=== PATIENT | female | born 1980 | race Caucasian/White ===

== ENCOUNTER 2019-10-31 01:11 | Emergency (ER) | payer OTHER, MEDICAID, SELFPAY ==
[2019-10-31 01:40] VITALS: BP 116/78; PULSE 79; RESP 16; TEMP 36.8; O2SAT 98; BMI 30.2
--- NOTE | 2019-10-31 01:40 | DI.US.S_ITS ---
PROCEDURE: US PELVIC COMPLETE INDICATIONS: PAIN; CHECK IUD PLACEMENT TECHNIQUE: Real-time scanning was performed of the pelvic organs, with image documentation. Additional endovaginal scanning was necessary due to incomplete visualization of the adnexal and endometrial structures by transabdominal scanning. COMPARISON: None. FINDINGS: Transabdominal scanning: Limited scanning through the kidneys shows no hydronephrosis. No pathologic free abdominal or pelvic fluid. Endovaginal scanning: Uterus: Uterus is normal in size at the 7.3 x 4.5 x 5.5 cm. The endometrium measures 7 mm in combined thickness. An intrauterine device is identified within the endometrial cavity. Ovaries: The right ovary measures 4.4 x 3.0 x 3.9 cm. There is a simple right ovarian cyst measuring 4.1 x 2.6 x 3.5 cm. Normal vascular waveforms are present within the right ovary. Left ovary measures 2.9 x 1.7 x 1.2 cm. There is a mildly complicated left ovarian cyst measuring 1.3 x 1.4 x 0.7 cm. There is mild internal echoes within this cyst. Normal vascular waveforms are noted in the left ovary. IMPRESSION: 1. Pelvic ultrasound without acute sonographic abnormalities. 2. An intrauterine device is noted within the endometrial cavity. 3. A 4.1 cm simple right ovarian cyst. 4. A mildly complicated 1.4 cm left ovarian cyst which may represent a functional cyst or hemorrhagic cyst. Consider followup pelvic ultrasound in 6-12 weeks to document stability versus resolution. No significant discrepancy with the third shift lieutenant radiology preliminary report. Dictated by: Felipe Cobos M.D. on 10/31/2019 at 8:41 Approved by: Felipe Cobos M.D. on 10/31/2019 at 8:47
--- NOTE | 2019-10-31 04:47 | ED.FEMALEGU ---
HPI - Female Genitourinary <LAITH Marinelli - Last Filed: 10/31/19 06:03> General Chief complaint: Urogenital-Female Stated complaint: thinks uterine device has moved - pain Time Seen by Provider: 10/31/19 01:15 Source: patient Mode of arrival: Ambulatory Limitations: no limitations History of Present Illness HPI Narrative: This is a 39-year-old female, nonsmoker, who presents to ED with 2 week duration of bilateral low abdomen and back pain with occasional nausea. Patient denies unusual vaginal discharge, lesions, or vaginal bleeding. She currently has on copper IUD in placed and her menstruation has been irregular. LMP was 09/25/19. Patient denies any concerns for STIs. Patient denies fever, chills, vomiting, urinary symptoms. Related Data Previous Rx's Medication Instructions Recorded doxycycline monohydrate 100 mg PO BID 7 Days #14 cap 10/31/19 ondansetron 4 mg PO BID-TID PRN #7 tab 10/31/19 Allergies Allergy/AdvReac Type Severity Reaction Status Date / Time No Known Drug Allergies Allergy Verified 10/31/19 02:23 Review of Systems <LAITH Marinelli - Last Filed: 10/31/19 06:03> Review of Systems Narrative: General: Denies fever, chills, fatigue, malaise, sweats. HEENT: Denies sinus pain, ear pain, sore throat, difficulty swallowing, dizziness. Respiratory: Denies dyspnea, cough, wheezing, hemoptysis, sputum. Cardiovascular: Denies chest pain, palpitations, orthopnea, edema. Gastrointestinal: Reports bilateral low abdominal pain and nausea. Denies vomiting, diarrhea, constipation, melena. : Denies dysuria, frequency, incontinence, hematuria, urinary retention. Musculoskeletal: Denies weakness, joint pain or bony pain. Skin: Denies rash, skin lesions, or other. Neurologic: Denies weakness, headache, numbness, change in speech, confusion, seizures, incoordination. Psychiatric: No concerning psychosocial issues. 12-point review of systems is negative except for those stated above. Patient History <LAITH Marinelli - Last Filed: 10/31/19 06:03> Medical History Epilepsy (Acute) Scoliosis (Acute) Smoking Status: Current some day smoker alcohol intake frequency: 0-2 drinks per day Substance Use Type: does not use Exam <Jerrell LAITH Sandoval - Last Filed: 10/31/19 06:03> Narrative Exam Narrative: GEN: Alert, oriented x 3, well appearing and nourished, and in no acute distress. Head: Normal cephalic, atraumatic. No scalp or temporal tenderness, palpable mass or rash. EYES: Pupils are equal, round, and reactive to light and accommodation. Extraocular muscles are intact bilaterally. There is no subconjunctival hemorrhage, exudate and sclera non-icteric. ENT: Bilateral auditory canals and tympanic membranes clear. Hearing grossly intact. Nose without bleeding, purulent discharge or deviation. Facial sinuses nontender to palpate. Mucous membrane moist, no mucosal lesion. Throat without erythema, tonsillar hypertrophy or exudate. Uvula in midline, airway patent. Neck: Trachea in midline. No JVD, non-tender without lymphadenopathy. No masses or thyroid megaly. Supple, non-tender and no meningeal signs. CARDIAC: Normal regular rate and rhythm without murmurs, gallops, or rubs. No chest wall tenderness. No peripheral edema, cyanosis or pallor. Capillary refill is less than 2 seconds. RESPIRATORY: Lungs are clear to auscultate bilaterally. No cough, wheezes, rales, or rhonchi. No stridor, respiratory distress, increase work of breathing, or accessary muscle used. ABD: Abdomen soft, nontender and non-distended. No guarding or rebound tenderness to palpate. Bowel sounds are normal in all 4 quadrants. There is no palpable masses or organomegaly. EXT: Full painless ROM of all extremities with no loss of sensation, strength, effusion or edema. SKIN: Warm, dry, normal color for patient. No erythema, lesions or rash over visible areas. BACK: Nontender without deformity or crepitance. No flank tenderness. NEUROLOGICAL: Alert and oriented to place, time and person. Sensation and motor function intact bilaterally. No facial droops, dysphasia. PSYCHIATRIC: Good judgement and reason, without hallucinations, abnormal affect or abnormal behaviors during the examination. Initial Vital Signs Initial Vital Signs: Vital Signs Temperature 98.2 F 10/31/19 01:40 Pulse Rate 79 10/31/19 01:40 Respiratory Rate 16 10/31/19 01:40 Blood Pressure 116/78 10/31/19 01:40 Pulse Oximetry 98 10/31/19 01:40 General: No CVA tenderness External Female Exam: external appearance normal Speculum Exam - Vagina: normal appearance of the vagina and no masses Speculum Exam - Cervix: cervical tenderness and other (IUD string visible, erythematous cervix) Bimanual Exam- Vagina & Uterus: uterine size normal and cervical tenderness Bimanual Exam- Adnexa, other: adnexae non-tender Other: The patient gave permission for pelvic exam and declined standby assistance during the exam. <Adrian Mireles DO - Last Filed: 11/03/19 18:52> Initial Vital Signs Initial Vital Signs: Vital Signs Temperature 98.2 F 10/31/19 01:40 Pulse Rate 79 10/31/19 01:40 Respiratory Rate 16 10/31/19 01:40 Blood Pressure 116/78 10/31/19 01:40 Pulse Oximetry 98 10/31/19 01:40 Course <LAITH Marinelli - Last Filed: 10/31/19 06:03> Orders Ordered: Discontinued Medications Acetaminophen (Tylenol) 975 mg PO NOW ONE Stop: 10/31/19 04:48 Last Admin: 10/31/19 05:13 Dose: 975 mg Documented by: ZENAIDA Ketorolac Tromethamine (Toradol) 30 mg IM NOW ONE Stop: 10/31/19 04:48 Last Admin: 10/31/19 05:13 Dose: 30 mg Documented by: ZENAIDA Vital Signs Vital signs: Vital Signs - 8 hr 10/31/19 01:40 Temperature 98.2 F Pulse Rate 79 Respiratory Rate 16 Blood Pressure 116/78 Pulse Oximetry 98 <Adrian Mireles DO - Last Filed: 11/03/19 18:52> Course Course Narrative: very brief initial history obtained from the patient before I had to leave the room. US ordered, patient signed out to [facility] Orders Ordered: Discontinued Medications Acetaminophen (Tylenol) 975 mg PO NOW ONE Stop: 10/31/19 04:48 Last Admin: 10/31/19 05:13 Dose: 975 mg Documented by: ZENAIDA Ketorolac Tromethamine (Toradol) 30 mg IM NOW ONE Stop: 10/31/19 04:48 Last Admin: 10/31/19 05:13 Dose: 30 mg Documented by: ZENAIDA Vital Signs Vital signs: Vital Signs - 8 hr 10/31/19 01:40 Temperature 98.2 F Pulse Rate 79 Respiratory Rate 16 Blood Pressure 116/78 Pulse Oximetry 98 [facility] - Female Genitourinary <Jerrell BOBBY SandovalP - Last Filed: 10/31/19 06:03> Differential Diagnosis Differential diagnosis: Likely urinary tract infection, cervicitis, ovarian cyst and other (IUD displacement, Uterine rupture, Kidney infection, PID) Medical Records Attestation: I reviewed the patient's medical records. Lab Data Attestation: I reviewed the patient's lab results. Labs: Urine Dip Bedside Urine Glucose Negative Bedside Urine Bilirubin - Negative Bedside Urine Ketone - Negative Urine Specific [place] 1.015 Bedside Urine Occult Blood +/- Bedside Urine pH 6.0 Bedside Urine Protein + 30 Bedside Urine Urobilinogen - Negative Bedside Urine Nitrite - Negative Bedside Urine Leukocytes +/- 15 Esterase Imaging Data US-Pelvic: Radiologist's impression: Preliminary ultrasound for pelvic complete transvaginal and transabdominal read by Dr. Srini Ramos at 02:51 Intrauterine device visualized in a appropriate position within the endoluminal canal. Uterus appears within normal limits for age. No urine fibroid or other mass evident. Simple fluid containing cyst within the right ovary with intact arterial blood flow. Intake arterial blood flow to the left ovary without free fluid. Right intra ovarian simple cyst likely physiologic. Left intra ovarian complex cyst likely hemorrhage versus functional. [facility] Narrative Medical decision making narrative: Resumed the patient care from Dr. Mireles at 0350. Patient was re-evaluated by me [id number] at this time. Patient reports remaining bilateral low abdominal pain with back pain. Ultrasound test shows no torsion of ovaries. Patient has right-sided simple cyst. Left complex intra ovarian cyst likely hemorrhagic versus functional. Patient denies vaginal bleeding. Patient has stable vital signs at this time. Patient denies any concerns for STIs and declines culture testing at this time. Per clinical exam, patient reports discomfort with cervical tenderness and inflamed and erythematous cervix without purulent discharge. IUD string was visualized. Will treat patient for acute cervicitis with IUD inplacement at this time with 7 day course of doxycycline 100 mg b.i.d.. UA shows positive leuks without nitrites and it is being cultured at this time. Patient informed will be called if patient needs to be treated with antibiotic medication. Patient advised to take [id number] Tylenol and or Motrin as needed for discomfort. Discharged to home with as needed Zofran for nausea and return precautions such as chest spine, breathing difficulty, nausea or vomiting, vaginal bleeding, severe abdominal pain and patient verbalized understanding and agrees with treatment plan. <Adrian Mireles, DO - Last Filed: 11/03/19 18:52> Lab Data Labs: Urine Dip Bedside Urine Glucose Negative Bedside Urine Bilirubin - Negative Bedside Urine Ketone - Negative Urine Specific [place] 1.015 Bedside Urine Occult Blood +/- Bedside Urine pH 6.0 Bedside Urine Protein + 30 Bedside Urine Urobilinogen - Negative Bedside Urine Nitrite - Negative Bedside Urine Leukocytes +/- 15 Esterase Discharge Plan Departure Patient Disposition: Home Clinical Impression: Cervicitis Discharge Date/Time: 10/31/19 05:42 Instructions: DI for Pelvic Pain, DI for Acute Cervicitis Activity Restrictions/Additional Instructions: You have been diagnosed with [acute cervicitis and low abdominal/pelvic pain. Ultrasound test shows IUD in normal placement and simple ovarian cysts. There was no free fluid in pelvic region. What to do: *Take your medications as directed. Please complete a course of doxycycline for 7 days. You can take [id number] Tylenol up to 4000 mg in 24 hour period and ibuprofen/Motrin 400-800 mg 3 times a day with food as needed. *Follow up with your primary care provider in 2-3 days, call for an appointment. Let them know you were seen in the ED and that we asked you to be seen in follow up. *Return to ED if you have any new, worsening, or concerning symptoms, such as [chest pain, breathing difficulty, dizziness, fainting episode, or any acute concerns]. Prescriptions: New doxycycline monohydrate 100 mg capsule 100 mg PO BID 7 Days Qty: 14 RF: 0 ondansetron 4 mg tablet,disintegrating 4 mg PO BID-TID PRN (Reason: nausea and vomiting) Qty: 7 RF: 0
[2019-10-31] MEDS: ACETAMINOPHEN 325 MG TABLET 975 MG PO (05:13)
[2019-10-31] MEDS: KETOROLAC 60 MG/2 ML VIAL 30 MG IM (05:13)
== END 2019-10-31 05:42 | disposition home or self-care (01) ==
PROVIDERS: Emergency Provider Nurse Practitioner Family
DX: N72 Inflammatory disease of cervix uteri (principal); R10.2 Pelvic and perineal pain
CPT/HCPCS: 76830; 76856; 81003; 96372; 99282; 99283; J1885

== ENCOUNTER 2019-11-26 20:21 | Emergency (ER) | payer OTHER, MEDICAID, SELFPAY ==
[2019-11-26 20:24] VITALS: BP 125/77; PULSE 83; RESP 14; TEMP 36.6; O2SAT 99; BMI 32.1
--- NOTE | 2019-11-26 20:40 | PC.NURSE ---
in triage finger started to saturate bandage. pressure dressing applied with folded 2x2 and tight coban wrapped.
--- NOTE | 2019-11-26 21:59 | ED.WOUNDLAC ---
HPI - Wound/Laceration General Chief Complaint: Wound/Laceration Stated Complaint: laceration to index finger at work Time Seen by Provider: 11/26/19 20:49 Source: patient Mode of arrival: Ambulatory History of Present Illness HPI narrative: 39-year-old woman with a known seizure disorder was at work this evening using a pair of scissors to open a box. Her hand slipped and she ended up suffering a laceration to the dorsum of the index finger on her left hand. She was at work at the time and is filling out all and I forms. Related Data Previous Rx's Medication Instructions Recorded ondansetron 4 mg PO BID-TID PRN #7 tab 10/31/19 Allergies Allergy/AdvReac Type Severity Reaction Status Date / Time No Known Drug Allergies Allergy Verified 11/26/19 20:30 Review of Systems Review of Systems Narrative: Bleeding to the side is controlled with pressure. She is neurovascularly intact. Remainder of review of systems is otherwise unremarkable Patient History Medical History Epilepsy (Acute) Scoliosis (Acute) Social History Smoking Status: Current some day smoker Smoking Status: Current some day smoker alcohol intake frequency: 0-2 drinks per day Substance Use Type: does not use Exam Narrative Exam Narrative: General: Alert appropriate in no acute distress Respiratory: Able to speak in full sentences, no obvious respiratory distress Skin: No obvious rashes, warm and dry Neurologic: Grossly intact no obvious asymmetries or abnormalities Psych, appropriate insight and affect, cooperative Extremity: 2 cm laceration to the dorsum index finger left hand. Moderate amount of bleeding that is controlled with pressure. Clean edges and no debris appreciated Initial Vital Signs Initial Vital Signs: Vital Signs Temperature 98 F 11/26/19 20:24 Pulse Rate 83 11/26/19 20:24 Respiratory Rate 14 11/26/19 20:24 Blood Pressure 125/77 11/26/19 20:24 Pulse Oximetry 99 11/26/19 20:24 Procedures Laceration Repair Laceration 1: Site: hand Size (cm): 2 Description: linear Depth: simple, single layer Local Anesthetic: lidocaine 1% Amount of anesthesia used (mL): 2 Pre-repair: wound explored Skin layer closed with: nylon Size (cm): 4-0 Number of sutures: 5 Technique: simple, interrupted Course Orders Ordered: Discontinued Medications Tetanus/Diphtheria Toxoids (Td) 0.5 ml IM .ONCE ONE Stop: 11/26/19 22:04 Vital Signs Vital signs: Vital Signs - 8 hr 11/26/19 20:24 Temperature 98 F Pulse Rate 83 Respiratory Rate 14 Blood Pressure 125/77 Pulse Oximetry 99 Discharge Plan Departure Patient Disposition: Home Clinical Impression: Laceration Instructions: DI for Laceration Repair Activity Restrictions/Additional Instructions: Thank you for coming in today. The wound came together nicely and the stitches will need to come out in 7 or so days. You may return to the emergency department on December 03 or and 1 of our nurses can take the stitches out for you. Please keep the wound covered and it is okay to use some topical antibiotic ointment. We have updated your tetanus status today. It's common to be sore after a tetanus injection. Ibuprofen can help significantly. If you notice signs of infection, redness, increasing pain, drainage please return to the ER for additional evaluation I hope you heal quickly. Be careful with the scissors!. Prescriptions: No Action ondansetron 4 mg tablet,disintegrating 4 mg PO BID-TID PRN (Reason: nausea and vomiting) Qty: 7 RF: 0
[2019-11-26] MEDS: TETANUS DIPHTHERIA TOXOIDS 0.5 ML VIAL IM (22:28)
[2019-11-26] MEDS: LIDOCAINE 1% (PF) 2 ML (22:30)
--- NOTE | 2019-11-26 22:30 | PC.NURSE ---
sabrina adminitsered by Armando Cooper
[2019-11-26 22:41] VITALS: BP 136/69; PULSE 69; RESP 16; O2SAT 69
--- NOTE | 2019-11-26 22:43 | PC.NURSE ---
5 stitches total placed on 2cm finger lac, well approximated, no bleeding. Tube gauze placed. Patient denies further needs.
== END 2019-11-26 22:44 | disposition home or self-care (01) ==
PROVIDERS: Emergency Provider Emergency Medicine
DX: S61.211A Laceration without foreign body of left index finger without damage to nail, initial encounter (principal); W26.8XXA Contact with other sharp object(s), not elsewhere classified, initial encounter; Y99.0 Civilian activity done for income or pay; Z23 Encounter for immunization
CPT/HCPCS: 12001; 90471; 90714; 99282; 99283

== ENCOUNTER → 2020-05-28 15:48 | Outpatient (CLI) | payer OTHER, MEDICAID, SELFPAY ==
[2020-05-30 16:08] LABS: COVID19 Sendout Not Detected (Not Detected)
== END ==
PROVIDERS: Visit Provider Physician Assistant
DX: R05 Cough (principal)
CPT/HCPCS: 87635

== ENCOUNTER 2020-11-20 12:13 | Emergency (ER) | payer OTHER, MEDICAID, SELFPAY ==
[2020-11-20] VITALS (8 sets, daily range): BP systolic 114–117; BP diastolic 58–65; PULSE 79–93; RESP 16–18; TEMP 36.6; O2SAT 96–99
--- NOTE | 2020-11-20 12:19 | DI.RAD.S_ITS ---
PROCEDURE: XR CHEST 1V INDICATIONS: Flu like symptoms TECHNIQUE: One view of the chest was acquired. COMPARISON: None. FINDINGS: Surgical changes and devices: None. Lungs and pleura: Lungs are clear. No pleural effusions or pneumothorax. Mediastinum: Mediastinal contours appear normal. Heart size is normal. Bones and chest wall: No suspicious bony lesions. Overlying soft tissues appear unremarkable. IMPRESSION: No acute cardiopulmonary pathology. Dictated by: Mark Acharya M.D. on 11/20/2020 at 12:45 Approved by: Mark Acharya M.D. on 11/20/2020 at 12:48
[2020-11-20 13:02] LABS: COVID19 -Nasal RAPID Negative (Negative)
[2020-11-20] MEDS: KETOROLAC 60 MG/2 ML VIAL 30 MG IM (13:42)
--- NOTE | 2020-11-20 14:01 | ED.URI ---
HPI - URI/Sore Throat <HUONG Pearl - Last Filed: 11/20/20 15:57> General Chief Complaint: Upper Respiratory Symptoms Stated Complaint: Cough,congestion, headache, not feeling good Time Seen by Provider: 11/20/20 12:18 Source: patient Mode of arrival: Ambulatory Limitations: no limitations History of Present Illness HPI Narrative: The patient is a 40-year-old female current some day smoker who denies any medical history other than seizures who presents with a chief complaint of congestion, headache going on for about 1 week. Two or 3 days ago she started having a productive cough. She has not tried any vymt-dfs-iophcoe medications at home. She has no known specific coronavirus exposure. She is worried about a sinus infection. She denies any sore throat. She denies any ear pain. She denies any specific radiation of her headache to her jaw, denies sinus tenderness, states this is been going on for 7 or 8 days. She denies any fevers nausea vomiting diarrhea. She denies any current abdominal pain nausea vomiting or diarrhea. She does state that she has had slight diarrhea off and on for a long time Related Data Home Medications Medication Instructions Recorded Confirmed folic acid PO 05/28/20 05/28/20 lamotrigine 100 mg tablet 450 mg PO DAILY tab 05/28/20 05/28/20 Previous Rx's Medication Instructions Recorded fluticasone propionate [Flonase 1 spray INTRANASAL BID PRN #9.9 ml 11/20/20 Allergy Relief] ketorolac 10 mg PO TID PRN #15 tab 11/20/20 Allergies Allergy/AdvReac Type Severity Reaction Status Date / Time No Known Drug Allergies Allergy Verified 05/28/20 15:22 Review of Systems <HUONG Pearl - Last Filed: 11/20/20 15:57> Review of Systems Narrative: GENERAL: See HPI HEENT: See HPI RESPIRATORY: See HPI CARDIOVASCULAR: Denies chest pain, palpitations, orthopnea, edema, GASTROINTESTINAL: See HPI : Denies dysuria, frequency, incontinence, hematuria, urinary retention. MUSCULOSKELETAL: denies weakness, joint pain, or bony pain SKIN: Denies rash, skin lesions, or other NEUROLOGIC: Denies weakness, headache, numbness, change in speech, confusion, seizures, incoordination. PSYCHIATRIC: No concerning psychosocial issues. 12 point review of systems is negative except for those stated above Patient History <HUONG Pearl - Last Filed: 11/20/20 15:57> Medical History Epilepsy Scoliosis Viral syndrome Social History Smoking Status: Current some day smoker Smoking Status: Current some day smoker alcohol intake frequency: 0-2 drinks per day Substance Use Type: does not use Exam <HUONG Pearl - Last Filed: 11/20/20 15:57> Narrative Exam Narrative: GENERAL: This is a well-nourished, well-developed patient, in no acute distress HEAD: Atraumatic. Normocephalic. No temporal or scalp tenderness. EYES: Pupils equal round and reactive. Extraocular motions intact. No scleral icterus. No injection or drainage. ENT: Nose without bleeding, purulent drainage or septal hematoma. Throat without erythema, tonsillar hypertrophy or exudate. Uvula midline. Airway patent. Slight cobblestoning noted. Bilateral TMs pearly stubbs. Bilateral ear canals within normal limits NECK: Trachea midline. No JVD or lymphadenopathy. Supple, nontender, no meningeal signs. CARDIOVASCULAR: Regular rate and rhythm RESPIRATORY: Clear to auscultation. Breath sounds equal bilaterally. No wheezes, rales, or rhonchi. No cough on exam. No increased respiratory effort. No accessory muscle use. Speaking full sentences. GASTROINTESTINAL: Abdomen soft, non-tender, nondistended. No guarding. EXTREMITIES: No clubbing, cyanosis, or edema. No joint tenderness, effusion, or edema noted. BACK: Nontender without deformity or crepitance. No flank tenderness. NEURO: AOx3. SKIN: No rash or erythema on visible skin Initial Vital Signs Initial Vital Signs: Vital Signs Pulse Rate 89 11/20/20 12:19 Pulse Oximetry 99 11/20/20 12:19 <Merline Washburn DO - Last Filed: 11/20/20 18:33> Initial Vital Signs Initial Vital Signs: Vital Signs Pulse Rate 89 11/20/20 12:19 Pulse Oximetry 99 11/20/20 12:19 Scores <HUONG Pearl - Last Filed: 11/20/20 15:57> GCS [place] coma scale eye opening: Spontaneous Gilda coma scale verbal response: Orientated [place] coma scale motor response: Obey commands [place] coma scale total score: 15 Course <HUONG Pearl - Last Filed: 11/20/20 15:57> Orders Ordered: ED Orders 11/20/20 12:19 XR chest 1V Stat 11/20/20 12:30 COVID19 Stat Discontinued Medications Ketorolac Tromethamine (Ketorolac 60 Mg/2 Ml Vial) 30 mg IM NOW ONE Stop: 11/20/20 13:23 Last Admin: 11/20/20 13:42 Dose: 30 mg Documented by: DIA Vital Signs Vital signs: Vital Signs - 8 hr 11/20/20 12:19 11/20/20 12:20 11/20/20 12:23 Temperature 97.9 F Pulse Rate 89 88 89 Respiratory Rate 16 Blood Pressure 117/58 L 117/58 L Pulse Oximetry 99 98 99 11/20/20 12:30 11/20/20 13:00 11/20/20 13:30 Temperature Pulse Rate 93 H 84 85 Respiratory Rate Blood Pressure Pulse Oximetry 97 97 96 11/20/20 14:15 11/20/20 14:18 Temperature Pulse Rate 79 Respiratory Rate 18 Blood Pressure 114/65 Pulse Oximetry 98 98 <Merline Washburn DO - Last Filed: 11/20/20 18:33> Orders Ordered: ED Orders 11/20/20 12:19 XR chest 1V Stat 11/20/20 12:30 COVID19 Stat Discontinued Medications Ketorolac Tromethamine (Ketorolac 60 Mg/2 Ml Vial) 30 mg IM NOW ONE Stop: 11/20/20 13:23 Last Admin: 11/20/20 13:42 Dose: 30 mg Documented by: DIA Vital Signs Vital signs: Vital Signs - 8 hr 11/20/20 12:19 11/20/20 12:20 11/20/20 12:23 Temperature 97.9 F Pulse Rate 89 88 89 Respiratory Rate 16 Blood Pressure 117/58 L 117/58 L Pulse Oximetry 99 98 99 11/20/20 12:30 11/20/20 13:00 11/20/20 13:30 Temperature Pulse Rate 93 H 84 85 Respiratory Rate Blood Pressure Pulse Oximetry 97 97 96 12/23/20 14:15 11/20/20 14:18 Temperature Pulse Rate 79 Respiratory Rate 18 Blood Pressure 114/65 Pulse Oximetry 98 98 MDM - URI/Sore Throat <HUONG Pearl - Last Filed: 11/20/20 15:57> Lab Data Labs: Lab Results 11/20/20 Range/Units 12:30 COVID-19 PCR Negative (Negative) Point of Care Testing Test Results Negative Imaging Data Chest x-ray: Radiologist's Impression: [address] [place] [address] [id number] ReportSigned Patient: Nicanor Sanders MMR#: [id number]: [id number]:[id number]/Sex: 40 / FDate of Service: 11/20/20Loc: EDAccession Number: [id number] Procedure: XR chest 1V Ordering Provider: Merline Sanon PROCEDURE: XR CHEST 1V INDICATIONS: Flu like symptoms TECHNIQUE: One view of the chest was acquired. COMPARISON: None. FINDINGS: Surgical changes and devices: None. Lungs and pleura: Lungs are clear. No pleural effusions or pneumothorax. Mediastinum: Mediastinal contours appear normal. Heart size is normal. Bones and chest wall: No suspicious bony lesions. Overlying soft tissues appear unremarkable. IMPRESSION: No acute cardiopulmonary pathology. Dictated by: Mark Acharya M.D. on 11/20/2020 at 12:45 Approved by: Mark Acharya M.D. on 11/20/2020 at 12:[address] [facility] Narrative Medical decision making narrative: The patient is a 40-year-old female who presents with a chief complaint of a possible sinus infection. She tests negative for coronavirus. She is hemodynamically stable in no acute distress throughout her stay. Her chest x-ray has no acute findings. I discussed at length that symptoms for approximately 1 week are not likely to be a bacterial sinus infection, encouraged cmip-jyd-hmnmdxo medications including you med sinus rinse or Neti pot, use of Flonase, Sudafed and Toradol. test Negative and Toradol injection given in the emergency department. Encouraged follow-up with primary care provider gave contact information the [facility] health human resources benefits administrator. Discussed come back to ER for acute concerns such as concern of heart attack stroke, severe shortness of breath etcetera. Patient has no questions or concerns upon discharge and states understanding return precautions as well as follow-up care. <Merline Washbunr DO - Last Filed: 11/20/20 18:33> Lab Data Labs: Lab Results 11/20/20 Range/Units 12:30 COVID-19 PCR Negative (Negative) Point of Care Testing Test Results Negative Discharge Plan Departure Patient Disposition: Home Clinical Impression: Upper respiratory infection Qualifiers: URI type: unspecified viral URI Qualified Code(s): J06.9 - Acute upper respiratory infection, unspecified Instructions: DI for Viral Upper Respiratory Infection -- Adult Activity Restrictions/Additional Instructions: Thank you for trusting us with your care today. As discussed, your coronavirus test resulted negative. Your chest x-ray is no acute findings. I suggest the following regimen: NeilMed sinus rinse or Neti pot followed by Flonase Sudafed from behind the counter at the pharmacy Tylenol Prescription of ketorolac or Toradol. I have given you a prescription of Toradol. This is an NSAID. Do not combine it with other NSAIDs such as Aleve or ibuprofen. I suggest taking it with some food, as it can irritate your stomach. Please rest and push fluids. Please come back to the emergency department for any acute concerns such as severe shortness of breath concern of heart attack stroke etcetera Please follow-up with primary care provider in the next few days. We have Jackie OZUNA listed as a primary care provider for you. I have also included contact information to the [facility] human resources benefits administrator who can help you identify new primary care provider as I know you recently switched insurances. Prescriptions: New ketorolac 10 mg tablet 10 mg PO TID PRN (Reason: pain) Qty: 15 RF: 0 fluticasone propionate [Flonase Allergy Relief] 50 mcg/actuation spray,suspension 1 spray intranasal BID PRN (Reason: nasal congestion) Qty: 9.9 RF: 0 No Action lamotrigine 100 mg tablet 450 mg PO DAILY RF: 0 folic acid PO RF: 0 Referrals: [facility] Resources [Outside] Jackie Oviedo ARNP [Primary Care Provider] - <Merline Washburn DO - Last Filed: 11/20/20 18:33> Cosign ED Attending Cosignature Attestation: I was immediately available in the department for consultation. Documentation has been reviewed.
== END 2020-11-20 14:19 | disposition home or self-care (01) ==
PROVIDERS: Emergency Provider Nurse Practitioner Family; PCP Internal Medicine; Referring Provider Internal Medicine
DX: J06.9 Acute upper respiratory infection, unspecified (principal); R51.9 Headache, unspecified; G40.909 Epilepsy, unspecified, not intractable, without status epilepticus; Z20.828 Contact with and (suspected) exposure to other viral communicable diseases
CPT/HCPCS: 71045; 81025; 87635; 96372; 99283; J1885

== ENCOUNTER → 2021-02-27 10:12 | Outpatient (CLI) | payer OTHER, MEDICAID, SELFPAY ==
[2021-02-27] MEDS: COVID-19 VACC #1, MRNA(MOD) 100 MCG/0.5 ML VIAL IM (10:19)
== END ==
PROVIDERS: PCP Internal Medicine; Visit Provider Internal Medicine
DX: Z23 Encounter for immunization (principal)
CPT/HCPCS: 0011A; 91301

== ENCOUNTER → 2021-03-27 10:06 | Outpatient (CLI) | payer OTHER, MEDICAID, SELFPAY ==
[2021-03-27] MEDS: COVID-19 VACC #2, MRNA(MOD) 100 MCG/0.5 ML VIAL IM (10:11)
== END ==
PROVIDERS: PCP Internal Medicine; Visit Provider Internal Medicine
DX: Z23 Encounter for immunization (principal)
CPT/HCPCS: 0012A; 91301

== ENCOUNTER → 2021-07-11 12:40 | Outpatient (CLI) | payer OTHER, MEDICAID, SELFPAY ==
--- NOTE | 2021-07-11 12:41 | DI.US.S_ITS ---
PROCEDURE: US PELVIC COMPLETE INDICATIONS: PELVIC PAIN, BLEEDING, MERINA IUD POSSIBLE MIPLACED TECHNIQUE: Real-time scanning was performed of the pelvic organs, with image documentation. Additional endovaginal scanning was necessary due to incomplete visualization of the adnexal and endometrial structures by transabdominal scanning. COMPARISON: [facility], , US PELVIC COMPLETE, 10/31/2019, 2:08. FINDINGS: Uterus: Uterus is normal in size at 6.3 x 4.0 x 4.9 cm. The endometrium measures 4.5 mm in combined thickness. Intrauterine device in expected central position. Ovaries: Ovaries are normal bilaterally. No adnexal masses are seen. Other: No pathologic free abdominal or pelvic fluid. IMPRESSION: Intrauterine device in expected position. Dictated by: Neto ROSSI Interpreted: Gibran Resendiz MD on 07/11/2021 at 13:35 Transcribed by: MARINO on 07/11/2021 at 13:36 Approved by: Gibran Resendiz M.D. on 07/11/2021 at 15:38
== END ==
PROVIDERS: PCP Internal Medicine; Referring Provider Obstetrics & Gynecology; Visit Provider Obstetrics & Gynecology
DX: N94.6 Dysmenorrhea, unspecified (principal); N92.0 Excessive and frequent menstruation with regular cycle; R10.2 Pelvic and perineal pain; Z97.5 Presence of (intrauterine) contraceptive device
CPT/HCPCS: 76830; 76856

== ENCOUNTER → 2021-07-29 11:58 | Outpatient (CLI) | payer OTHER, MEDICAID, SELFPAY ==
[2021-07-29 13:35] LABS: Appearance Urine UA SL CLOUDY; Bilirubin Urine UA NEGATIVE (NEGATIVE); Color Urine UA YELLOW; Glucose Urine UA NEGATIVE (Negative); Ketones Urine UA TRACE (NEGATIVE); Leukocyte Esterase Urine UA 2+ (NEGATIVE); Nitrite Urine UA NEGATIVE (Negative); Occult Blood Urine UA 2+ (Negative); Protein Urine UA TRACE (Negative); Urobilinogen Urine UA 0.2 E.U./dL (0.2)
[2021-07-29 13:42] LABS: Bacteria Urine Many (>30); Culture Indicated Urine Cult Not Indicated; RBC Urine 5-10/HPF (0-5/HPF); Squamous Epithelial Cell Urine 5-10 /HPF (0-5/HPF); WBC Urine 10-30/HPF (0-5/HPF)
== END ==
PROVIDERS: PCP Internal Medicine; Referring Provider Obstetrics & Gynecology; Visit Provider Obstetrics & Gynecology
DX: N39.0 Urinary tract infection, site not specified (principal)
CPT/HCPCS: 81003; 81015

== ENCOUNTER 2021-10-30 11:15 | Outpatient (RCR) | payer OTHER, MEDICAID, SELFPAY ==
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
--- NOTE | 2021-08-12 09:47 | PT.OPPOC ---
Physical, Occupational & Speech Therapy At [facility] Current Diagnoses Scoliosis, unspecified (08/12/21) Dorsalgia, unspecified (08/12/21) Abnormal posture (08/12/21) Weakness (08/12/21) Visit Care Team Role Provider Type Devin Knutson MD Attending Provider Physician Family Provider Primary Care Provider Referring Provider Specialty: [facility] Address: [facility] [place], [facility] Email: [email or web address] Plan Of Care PT-OP-T Assessment and Plan Start: 08/11/21 16:12 Freq: Status: Active Protocol: Document 08/12/21 09:47 SAK (Rec: 08/13/21 16:57 SAK [id number]) Physical Therapy Assessment Rehab Potential Rehabilitation Potential Good Evaluation Complexity Number of Personal Factors/Comorbidities 1-2 Number of Body Systems Impaired 3 Clinical Presentation at Evaluation Evolving Impairments Impairments Pain,Posture,Strength Goals Three Impairment weakness Impairment weakness throughout trunk and hips with poor ability to activate core musculature Mcfp Goal (LTG) Patient will be indepedent and compliant with HEP for purposes of strengthening and core stabilization to allow her to do usual activities including tolerate full work shift without an increase in pain. LTG Duration 10/12/21 Two Impairment Increase in pain with caring for her daughter and doing ADL 's Mcfp Goal (LTG) Patient able to do all ADL's and care for her daughter demonstrating good posture and body mechanics without an increase in pain. LTG Duration 10/12/21 One Impairment Oswestry disability index score 22% Mcfp Goal (LTG) Decrease Owestry disability index score to no greater than 10% as measure of decreased pain and improved activity tolerance LTG Duration 10/12/21 Assessment Summary Assessment Pain presents with function- limiting chronic pain in spine , hips, and LE's. She currently doesn't have a HEP to address her pain and dysfunction. She has postural dysfunction including mild scoliosis as well as excess thoracic kyphosis and lumbar lordosis, as well as hypermobility in most joints, genu valgus, recurvatum, and excess foot pronation. She also has poor coor stabilization and strength. We plan to address her impairments with physical therapy to help her return to a more active lifestyle and be able to self-manage exacerbations. She agreed with POC. Physical Therapy Plan Frequency and Duration Frequency of Treatment 2x/Week Duration of Treatment 8 weeks Plan of Care Start Date 08/12/21 Plan of Care End Date 10/12/21 Therapeutic Interventions Therapeutic Interventions Home Exercise Program,Joint Mobilizations,Manual Therapy, Neuromuscular Re-education, Patient/Caregiver Education, Self-Care/Home Management,Soft Tissue Mobilization,Taping, Therapeutic Activities, Therapeutic Exercises Modalities Cold Pack/Ice Massage,Electric Stimulation,Hot Packs, Infrared Therapy,Traction- Mechanical,Ultrasound Next Visit Focus/Plan Next Note Type Treatment Note Next Visit Plan Review HEP. Add wall posture, shoulder row and ext with core stab, segmental bridge, recumbant stepper, sidelying hip abduction as tolerated. Plan of Care Dates Plan of Care Start Date 08/12/21 Plan of Care End Date 10/12/21 Electronically Signed by: Yissel Centeno, PT 08/13/21 [id number] Please Sign and Return: I have reviewed this Plan of Care and certify that the skilled therapy services above are required to meet the patient?s needs. Physician Signature Date Printed Name and Credentials Clinical Instructor Signature Printed Name and Credentials
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
--- NOTE | 2021-08-20 11:28 | PT-OP ANOTE ---
cancelled due to caring for ill
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
--- NOTE | 2021-08-25 08:15 | PT-OP ANOTE ---
Pt called at 0810 to cancel same day appt, had covid exposure at work, having covid test for safety before return for appt.
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
--- NOTE | 2021-09-01 09:53 | PT-OP ANOTE ---
cancelled due to no childcare
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
--- NOTE | 2021-09-08 08:44 | PT-OP ANOTE ---
DNS for PT appointment
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
--- NOTE | 2021-09-22 09:21 | PT-OP ANOTE ---
Pt did not show for today's appt, TEAM FACILITATOR called and left message regarding and reviewed the new policy in place will be charged a no show fee. TEAM FACILITATOR reminded of her next appt on 09/24 with PT Yissel, which is her last scheduled appt at this time but after reviewing with PT stated wants her to continue PT and send message up to vest front presser to call and add more appts.
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
--- NOTE | 2021-10-09 09:49 | PT.OPPOC ---
Physical, Occupational & Speech Therapy At [facility] Current Diagnoses Scoliosis, unspecified (10/14/21) Dorsalgia, unspecified (10/14/21) Abnormal posture (10/14/21) Weakness (10/14/21) Visit Care Team Role Provider Type Devin Knutson MD Attending Provider Physician Family Provider Primary Care Provider Referring Provider Specialty: [facility] Address: [facility] [place], [facility] Email: [email or web address] Plan Of Care PT-OP-T Assessment and Plan Start: 08/11/21 16:12 Freq: Status: Active Protocol: Document 10/14/21 08:18 SP (Rec: 10/14/21 09:10 SP [id number]) Physical Therapy Assessment Goals Three Impairment weakness Impairment weakness throughout trunk and hips with poor ability to activate core musculature 08/28/21: progressing: able to complete segmental bridge with decreased pelvic and hip sway . Campus Receptionist Goal (LTG) Patient will be indepedent and compliant with HEP for purposes of strengthening and core stabilization to allow her to do usual activities including tolerate full work shift without an increase in pain. LTG Duration 10/12/21 Two Impairment Increase in pain with caring for her daughter and doing ADL 's Fpc Goal (LTG) Patient able to do all ADL's and care for her daughter demonstrating good posture and body mechanics without an increase in pain. LTG Duration 10/12/21 One Impairment Oswestry disability index score 22% Fpc Goal (LTG) Decrease Owestry disability index score to no greater than 10% as measure of decreased pain and improved activity tolerance LTG Duration 10/12/21 Assessment Summary Assessment Tx focused on HEP review with improved core facilitation stability with slow movements. Initiated chops in standing vs seated good form with cuing for straight arms and core trunk rotation. Physical Therapy Plan Frequency and Duration Frequency of Treatment 2x/Week Duration of Treatment 8 weeks Plan of Care Start Date 08/12/21 Plan of Care End Date 10/12/21 Therapeutic Interventions Therapeutic Interventions Home Exercise Program,Joint Mobilizations,Manual Therapy, Neuromuscular Re-education, Patient/Caregiver Education, Self-Care/Home Management,Soft Tissue Mobilization,Taping, Therapeutic Activities, Therapeutic Exercises Modalities Cold Pack/Ice Massage,Electric Stimulation,Hot Packs, Infrared Therapy,Traction- Mechanical,Ultrasound Next Visit Focus/Plan Next Note Type Treatment Note Next Visit Plan Recheck initiated chops last tx. POC: Continue PT with emphasis on core stabilization and postural correction; land and aquatic-based. Plan of Care Dates Plan of Care Start Date 08/12/21 Plan of Care End Date 10/12/21 Electronically Signed by: Yissel Centeno, PT 10/14/21 1016 Please Sign and Return: I have reviewed this Plan of Care and certify that the skilled therapy services above are required to meet the patient?s needs. Physician Signature Date Printed Name and Credentials Clinical Instructor Signature Printed Name and Credentials
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
== END 2022-02-04 14:17 ==
LOC: PHYS 11:15
PROVIDERS: Family Provider Family Medicine; PCP Family Medicine; Referring Provider Family Medicine; Visit Provider Family Medicine
DX: M54.9 Dorsalgia, unspecified (principal); M41.9 Scoliosis, unspecified; R29.3 Abnormal posture; R53.1 Weakness; M25.561 Pain in right knee
CPT/HCPCS: 97010; 97110; 97112; 97113; 97116; 97162; 97535

== ENCOUNTER 2021-12-04 17:21 | Emergency (ER) | payer OTHER, MEDICAID, SELFPAY ==
[2021-12-04] VITALS (7 sets, daily range): BP systolic 124–140; BP diastolic 65–78; PULSE 72–103; RESP 16–20; TEMP 37.1; O2SAT 99–100; BMI 32.2
--- NOTE | 2021-12-04 17:36 | DI.CT.S_ITS ---
PROCEDURE: CT HEAD/BRAIN WO CON INDICATIONS: seizure TECHNIQUE: Noncontrast 4.5 mm thick angled axial sections acquired from the foramen magnum to the vertex, with coronal and sagittal reformats. For radiation dose reduction, the following was used: automated exposure control, adjustment of mA and/or kV according to patient size. COMPARISON: None. FINDINGS: Image quality: Excellent. CSF spaces: Basal cisterns are patent. No extra-axial fluid collections. Ventricles are normal in size and shape. Brain: No midline shift. No intracranial masses or hemorrhage. Lake-white matter interface is normal. Skull and face: Calvarium and visualized facial bones are intact, without suspicious lesions. Left frontal scalp hematoma Sinuses: Visualized sinuses and mastoids are clear. IMPRESSION: Left frontal scalp hematoma without underlying skull fracture or intracranial hemorrhage Approved by: Davey Roberts M.D. on 12/04/2021 at 17:33
--- NOTE | 2021-12-04 17:37 | DI.RAD.S_ITS ---
PROCEDURE: XR CHEST 1V INDICATIONS: chest pain TECHNIQUE: One view of the chest was acquired. COMPARISON: [facility], [place], XR CHEST 1V, 11/20/2020, 12:24. FINDINGS: Surgical changes and devices: None. Lungs and pleura: New patchy ill-defined airspace opacities predominantly in the lower lung zones. No focal consolidations. No pleural effusion. No pneumothorax. Mediastinum: Mediastinal contours appear normal. Heart size is normal. Bones and chest wall: No suspicious bony lesions. Overlying soft tissues appear unremarkable. IMPRESSION: Interval development of patchy ill-defined opacities predominantly in the lower lung zones. No focal consolidations. Findings may represent early developing airspace disease/pneumonia. Recommend clinical correlation. Recommend follow up chest radiograph 4-6 weeks after treatment to document resolution of findings and/or return to baseline examination. Dictated by: Felipe Cobos M.D. on 12/04/2021 at 18:15 Approved by: Felipe Cobos M.D. on 12/04/2021 at 18:16
[2021-12-04 18:16] LABS: Add Manual Diff / Slide Review NO; Basophils Absolute Auto 100 /uL (0-100); Basophils Percent Auto 0.5 % (0-2); Eosinophils Absolute Auto 200 /uL (0-450); Eosinophils Percent Auto 1.7 % (2-4); Hematocrit 42.9 % (36-46); Hemoglobin 14.9 g/dL (12.0-16.0); Lymphocytes Absolute Auto 1400 /uL (1100-4500); Lymphocytes Percent Auto 10.3 % (25-40); Mean Corpuscular HGB Conc 34.8 % (30-36); Mean Corpuscular Hemoglobin 31.8 PG (26-34); Mean Corpuscular Volume 91.4 fL (80-100); Monocytes Absolute Auto 1100 /uL (0-900); Neutrophils Absolute Auto 10800 /uL (1500-7000); Neutrophils Percent Auto 79.5 % (50-75); Platelet Count 205 X10^3/uL (150-400); Red Blood Cell Count 4.69 X10^6/uL (4.0-5.2); Red Cell Distribution Width 12.2 % (11.6-14.8); White Blood Cell Count 13.5 X10^3/uL (4.5-11.0)
--- NOTE | 2021-12-04 18:21 | ED.SEIZURE ---
HPI - Seizure General Chief Complaint: Seizure Stated Complaint: Seizure with facial injury Time Seen by Provider: 12/04/21 17:51 Source: EMS Mode of arrival: EMS Limitations: no limitations History of Present Illness HPI Narrative: Patient is a 41-year-old female with history seizure presenting with. She states that she was in the laundry area in their apartment complex when she passed out and had a seizure. She woke up on the ground, large contusion on the left side of her head and nose. When she has seizures they are typically has grand mal seizures she has been taking her lamotrigine which has typically been controlling her seizures. She says that she had a seizure last week as well. She typically does not have seizures. However she states that most of her family including daughter have recently been diagnosed with COVID. She is fully vaccinated. She has had a sore throat runny nose, another mild body aches. She is not on any anti-platelet or anticoagulation medication Related Data Home Medications Medication Instructions Recorded Confirmed folic acid PO 05/28/20 08/28/21 lamotrigine 100 mg tablet 450 mg PO DAILY tab 05/28/20 08/28/21 Previous Rx's Medication Instructions Recorded fluticasone propionate 50 1 spray INTRANASAL BID PRN #9.9 ml 11/20/20 mcg/actuation nasal spray,suspension (Flonase Allergy Relief) ketorolac 10 mg tablet 10 mg PO TID PRN #15 tab 11/20/20 Allergies Allergy/AdvReac Type Severity Reaction Status Date / Time No Known Drug Allergies Allergy Verified 08/28/21 13:56 Review of Systems Review of Systems Narrative: GENERAL: Denies chills, fatigue, malaise, fever, sweats, travel HEENT: See HPI RESPIRATORY: Denies dyspnea, cough, wheezing, hemoptysis, sputum. CARDIOVASCULAR: Denies chest pain, palpitations, orthopnea, edema GASTROINTESTINAL: Denies nausea, vomiting, abdominal pain, diarrhea, constipation, melena. : Denies dysuria, frequency, incontinence, hematuria, urinary retention, flank pain. MUSCULOSKELETAL: Denies weakness, joint pain, or bony pain SKIN: No rash, no erythema, no pruritus NEUROLOGIC: See HPI PSYCHIATRIC: No concerning psychosocial issues. 12 point review of systems is negative except for those stated above and HPI Patient History Medical History Epilepsy Scoliosis Viral syndrome Social History Smoking Status: Current some day smoker Smoking Status: Current some day smoker alcohol intake frequency: 0-2 drinks per day Substance Use Type: does not use Exam Initial Vital Signs Initial Vital Signs: Vital Signs Blood Pressure 135/78 12/04/21 17:30 GENERAL: Alert 41-year-old female HEENT: Head contusion noted left forehead mild left periorbital contusion nasal swelling and temporal region no septal hematoma NECK: Non tender CARDIOVASCULAR: Regular rate and rhythm without murmurs, rubs or gallops. RESPIRATORY: Breath sounds equal bilaterally, no wheezes rales or rhonchi. ABDOMEN: Soft, nontender. Normoactive bowel sounds all 4 quadrants. No guarding or rebound. EXTREMITIES: Normal range of motion, no clubbing or edema. Neurovascularly intact NEUROLOGICAL: Alert and oriented x4.Normal gait and speech. Cranial nerves II through XII grossly intact. Distribution Manager strength equal bilaterally SKIN: Warm, dry, no laceration, no petechiae, no rashes or lesions. Course Orders Ordered: Discontinued Medications Acetaminophen (Acetaminophen 325 Mg Tablet) 975 mg PO NOW ONE Stop: 12/04/21 18:30 Last Admin: 12/04/21 19:20 Dose: 975 mg Documented by: SULTANAONELamin Sodium Chloride (Normal Saline 0.9%) 1,000 mls @ 1,000 mls/hr IV BOLUS ONE Stop: 12/04/21 19:28 Last Infusion: 12/04/21 20:22 Dose: 0 mls/hr Documented by: Admin: 12/04/21 19:20 Dose: 1,000 mls/hr Documented by: BTONER Vital Signs Vital signs: Vital Signs - 8 hr 12/04/21 20:20 Pulse Rate 72 Respiratory Rate 17 Blood Pressure 124/73 Pulse Oximetry 100 MDM - Seizure Lab Data Result diagrams: 12/04/21 18:07 12/04/21 18:07 Labs: Lab Results 12/04/21 12/04/21 12/04/21 Range/Units 17:22 17:47 18:07 WBC 13.5 H (4.5-11.0) X10^3/uL RBC 4.69 (4.0-5.2) X10^6/uL Hgb 14.9 (12.0-16.0) g/dL Hct 42.9 (36-46) % MCV 91.4 (80-100) fL MCH 31.8 (26-34) PG MCHC 34.8 (30-36) % RDW 12.2 (11.6-14.8) % Plt Count 205 (150-400) X10^3/uL Neut % (Auto) 79.5 H (50-75) % Lymph % (Auto) 10.3 L (25-40) % [place] % (Auto) 8.0 (3-14) % Eos % (Auto) 1.7 L (2-4) % Baso % (Auto) 0.5 (0-2) % Neut # (Auto) 64922 H (7820-6602) /uL Lymph # (Auto) 1400 (0009-4810) /uL [place] # (Auto) 1100 H (0-900) /uL Eos # (Auto) 200 (0-450) /uL Baso # (Auto) 100 (0-100) /uL Sodium (137-145) mmol/L Potassium (3.4-5.1) mmol/L Chloride (98-107) mmol/L Carbon Dioxide (22-32) mmol/L BUN (7-17) mg/dL Creatinine (0.52-1.04) mg/dL Estimated GFR (>60) mL/min BUN/Creatinine Ratio (6-22) Glucose (70-100) mg/dL Calcium (8.4-10.2) mg/dL Magnesium (1.6-2.3) mg/dL Total Bilirubin (0.2-1.3) mg/dL AST (14-36) IU/L ALT (<35) IU/L Alkaline Phosphatase (38-126) U/L Total Creatine Kinase (30-135) U/L CK-MB (CK-2) CK-MB (CK-2) Rel Index Troponin I (0.01-0.034) ng/mL Total Protein (6.3-8.2) g/dL Albumin (3.5-5.0) g/dL Globulin (1.7-4.1) g/dL Albumin/Globulin Ratio (1.0-2.8) Lipase (23-300) U/L Urine RBC None seen (0-5/HPF) Urine WBC None seen (0-5/HPF) Urine Bacteria None seen (None) Ur Culture Indicated? Cult not indicated SARS-CoV-2 (PCR) Positive H (Negative) 12/04/21 Range/Units 18:07 WBC (4.5-11.0) X10^3/uL RBC (4.0-5.2) X10^6/uL Hgb (12.0-16.0) g/dL Hct (36-46) % MCV (80-100) fL MCH (26-34) PG MCHC (30-36) % RDW (11.6-14.8) % Plt Count (150-400) X10^3/uL Neut % (Auto) (50-75) % Lymph % (Auto) (25-40) % [place] % (Auto) (3-14) % Eos % (Auto) (2-4) % Baso % (Auto) (0-2) % Neut # (Auto) (8229-3072) /uL Lymph # (Auto) (1363-3596) /uL [place] # (Auto) (0-900) /uL Eos # (Auto) (0-450) /uL Baso # (Auto) (0-100) /uL Sodium 141 (137-145) mmol/L Potassium 3.7 (3.4-5.1) mmol/L Chloride 109 H (98-107) mmol/L Carbon Dioxide 25 (22-32) mmol/L BUN 17 (7-17) mg/dL Creatinine 0.74 (0.52-1.04) mg/dL Estimated GFR > 60.0 (>60) mL/min BUN/Creatinine Ratio 23.0 H (6-22) Glucose 158 H (70-100) mg/dL Calcium 9.9 (8.4-10.2) mg/dL Magnesium 2.1 (1.6-2.3) mg/dL Total Bilirubin 0.3 (0.2-1.3) mg/dL AST 27 (14-36) IU/L ALT 22 (<35) IU/L Alkaline Phosphatase 64 (38-126) U/L Total Creatine Kinase 65 (30-135) U/L CK-MB (CK-2) TNP CK-MB (CK-2) Rel Index TNP Troponin I 0.017 (0.01-0.034) ng/mL Total Protein 8.3 H (6.3-8.2) g/dL Albumin 4.5 (3.5-5.0) g/dL Globulin 3.8 (1.7-4.1) g/dL Albumin/Globulin Ratio 1.2 (1.0-2.8) Lipase 148 (23-300) U/L Urine RBC (0-5/HPF) Urine WBC (0-5/HPF) Urine Bacteria (None) Ur Culture Indicated? SARS-CoV-2 (PCR) (Negative) Point of Care Testing Test Results Negative Urine Dip Bedside Urine Glucose Negative Bedside Urine Bilirubin - Negative Bedside Urine Ketone +/- 5 Urine Specific [place] 1.030 Bedside Urine Occult Blood ++ Bedside Urine pH 5.5 Bedside Urine Protein +++ 300 Bedside Urine Urobilinogen - Negative Bedside Urine Nitrite - Negative Bedside Urine Leukocytes - Negative Esterase Imaging Data CT scan - head: Radiologist's Impression: PROCEDURE:? CT HEAD/BRAIN WO CON ? INDICATIONS:? seizure ? TECHNIQUE:? Noncontrast 4.5 mm thick angled axial sections acquired from the foramen magnum to the vertex, with coronal and sagittal reformats.? For radiation dose reduction, the following was used:? automated exposure control, adjustment of mA and/or kV according to patient size.? ? COMPARISON:? None. ? FINDINGS:? Image quality:? Excellent.? ? CSF spaces:? Basal cisterns are patent.? No extra-axial fluid collections.? Ventricles are normal in size and shape.? ? Brain:? No midline shift.? No intracranial masses or hemorrhage.? [place]-white matter interface is normal.? ? Skull and face:? Calvarium and visualized facial bones are intact, without suspicious lesions.? Left frontal scalp hematoma ? Sinuses:? Visualized sinuses and mastoids are clear.? ? IMPRESSION:? ? Left frontal scalp hematoma without underlying skull fracture or intracranial hemorrhage ? ? ? Approved by: Davey Roberts M.D. on 12/04/2021 at 17:33? ECG Data Interpretation: Normal sinus rhythm rate 102 SD interval 142 QRS [address] changes MDM Narrative Medical decision making narrative: Patient has a known seizure history typically they are well controlled however she is also COVID positive. The infection is likely decreasing her seizure threshold causing her 2nd seizure in a week. She is a neurologist whom she follows with. At this time she will follow up in outpatient. At this time patient has been given normal saline and Tylenol in the emergency department. She is feeling significantly better he he has no focal deficits. She also has no significant risk factors for worsening COVID. Discharge Plan Departure Patient Disposition: Home Clinical Impression: Seizure, COVID-19 Instructions: DI for Seizure Disorder -- Adult, DI for COVID-19 (Suspected or Confirmed ) Activity Restrictions/Additional Instructions: NO DRIVING UNTIL EVALUATION BY NEUROLOGY -it is suspected that your having increased seizure activity secondary to current COVID infection Please follow-up Neurology and her PCP in the next 2-3 days Return to the emergency department if you should have any new or worsening symptoms including recurrent seizure or any worsening COVID symptoms * if you have not yet been vaccinated is still recommended and encouraged that you do so once your infection has passed *Follow up with your primary provider in 2-3 days or call [phone] AT HOME: -Monitor oxygen with pulse oximeter. If less than 90% for more than 1 hour please return to emergency department -I recommend lying on stomach for side rather than back, it has been proven to increase oxygen levels -Wash hands frequently. -Stay isolated at home please follow the isolation instructions below. -Increase fluid intake. -you may take Tylenol as directed if needed for pain or fever EMERGENCY warning signs for COVID-19: - Difficulty breathing or shortness of breath, oxygen less than 90% - Persistent pain or pressure in the chest - New confusion or inability to arouse - Bluish lips or face CDC Guidelines for home isolation: - Stay away from others - Limit contact with pets and animals: If you must care for a pet, wash your hands before and after interacting with them - Wear a mask while in public all places - Cover your mouth and nose with a tissue when you cough or sneeze. Dispose of tissues in a lined trash can and wash your hands immediately with soap and water for at least 20 seconds. If soap and water are not available, clean hands with alcohol-based hand bilingual research interviewer that contains at least 60% alcohol. - Clean your hands often with soap and water for at least 20 seconds - Avoid touching your eyes, nose and mouth with unwashed hands - Do not share dishes, drinking glasses, cups, eating utensils, towels, or bedding with other people in your home. After using these items, wash them thoroughly with soap and water or put in the inventory coordinator. - Clean high-touch surfaces in your isolation area (?sick room? and bathroom) every day; let a caregiver clean and disinfect high-touch surfaces in other areas of the home. Clean the area or item with soap and water or another detergent if it is dirty. Then, use a household disinfectant. Prescriptions: No Action lamotrigine 100 mg tablet 450 mg PO DAILY 0RF folic acid PO 0RF ketorolac 10 mg tablet 10 mg PO TID PRN (Reason: pain) Qty: 15 0RF fluticasone propionate [Flonase Allergy Relief] 50 mcg/actuation spray,suspension 1 spray intranasal BID PRN (Reason: nasal congestion) Qty: 9.9 0RF Rx Instructions: administer into each nostril Referrals: Devin Knutson MD [Primary Care Provider] -
[2021-12-04 18:25] LABS: Bacteria Urine None Seen; Culture Indicated Urine Cult Not Indicated; RBC Urine None Seen (0-5/HPF); WBC Urine None Seen (0-5/HPF)
[2021-12-04 18:32] LABS: Alanine Aminotransferase 22 IU/L (<35); Albumin 4.5 g/dL (3.5-5.0); Albumin Globulin Ratio 1.2 (1.0-2.8); Alkaline Phosphatase 64 U/L (38-126); Aspartate Aminotransferase 27 IU/L (14-36); Bilirubin Total 0.3 mg/dL (0.2-1.3); Blood Urea Nitrogen 17 mg/dL (7-17); Calcium 9.9 mg/dL (8.4-10.2); Carbon Dioxide 25 mmol/L (22-32); Chloride 109 mmol/L (98-107); Creatine Kinase 65 U/L (30-135); Estimated Glomerular Filt Rate > 60.0 mL/min (>60); Globulin 3.8 g/dL (1.7-4.1); Glucose 158 mg/dL (70-100); HEMOLYSIS 23 (0-50); Lipase 148 U/L (23-300); Magnesium 2.1 mg/dL (1.6-2.3); Potassium 3.7 mmol/L (3.4-5.1); Sodium 141 mmol/L (137-145); Total Protein 8.3 g/dL (6.3-8.2)
[2021-12-04 18:32] LABS: COVID19 -Nasal RAPID POSITIVE (Negative)
[2021-12-04 18:44] LABS: Troponin I 0.017 ng/mL (0.01-0.034)
[2021-12-04] MEDS: SODIUM CHLORIDE 0.9% 1,000 ML 1000 ML IV (19:20)
[2021-12-04] MEDS: ACETAMINOPHEN 325 MG TABLET 975 MG PO (19:20)
== END 2021-12-04 20:25 | disposition home or self-care (01) ==
PROVIDERS: Emergency Medicine; Emergency Provider Emergency Medicine; Family Provider Family Medicine; PCP Family Medicine
DX: U07.1 COVID-19 (principal); G40.909 Epilepsy, unspecified, not intractable, without status epilepticus; F17.200 Nicotine dependence, unspecified, uncomplicated
CPT/HCPCS: 36415; 70450; 71045; 80053; 81003; 81015; 81025; 82550; 83690; 83735; 84484; 85025; 87635; 93005; 93010; 96360; 99284; C9803

== ENCOUNTER → 2022-10-29 09:29 | Outpatient (CLI) | payer OTHER, SELFPAY ==
--- NOTE | 2022-10-29 | DI.RAD.S_ITS ---
PROCEDURE: XR KNEE RT 1TO2V INDICATIONS: knee and ankle pain TECHNIQUE: 3 views of the knee were acquired. COMPARISON: None. FINDINGS: Bones: No fractures or dislocations. Very mild joint space narrowing and subchondral sclerosis in medial femoral tibial compartment and lateral femoral tibial compartment is seen. No suspicious bony lesions. Soft tissues: No joint effusion. No suspicious soft tissue calcifications. 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 No fracture or dislocation. No significant joint effusion. Dictated by: Mark Acharya M.D. on 10/29/2022 at 12:02 Approved by: Mark Acharya M.D. on 10/29/2022 at 12:02
--- NOTE | 2022-10-29 | DI.RAD.S_ITS ---
PROCEDURE: XR ANKLE LT 2V INDICATIONS: knee and ankle pain TECHNIQUE: To views of the ankle were acquired. COMPARISON: None. FINDINGS: Bones: There is prior internal fixation of distal fibular shaft and medial malleolus. The more medial surgical screw in medial malleolus appears to be bent suggest clinical correlation. No evidence of hardware loosening or failure is seen. Ankle mortise is normally aligned. Mild tibiotalar joint space narrowing and subchondral sclerosis is seen. No suspicious bony lesions. Soft tissues: No tibiotalar joint effusion. Achilles tendon appears normal. IMPRESSION: Prior internal fixation of distal fibular shaft and medial malleolus with band medial malleolus fixation screw as above. Clinical correlation is recommended for evaluation of hardware complication. No acute fracture or dislocation. Mild tibiotalar joint osteoarthritis. Intact ankle mortise. Dictated by: Mark Acharya M.D. on 10/29/2022 at 12:03 Approved by: Mark Acharya M.D. on 10/29/2022 at 12:04
== END ==
PROVIDERS: Family Provider Family Medicine; PCP Family Medicine; Referring Provider Internal Medicine Cardiovascular Disease; Visit Provider Internal Medicine Cardiovascular Disease
DX: M17.11 Unilateral primary osteoarthritis, right knee (principal); M19.072 Primary osteoarthritis, left ankle and foot; M25.561 Pain in right knee; M25.572 Pain in left ankle and joints of left foot
CPT/HCPCS: 73560; 73600

== ENCOUNTER → 2023-04-08 16:28 | Outpatient (CLI) | payer OTHER, MEDICAID, SELFPAY ==
--- NOTE | 2023-04-08 16:30 | DI.RAD.S_ITS ---
PROCEDURE: XR KNEE RT 3V INDICATIONS: M25.561 TECHNIQUE: 3 views of the knee were acquired. COMPARISON: [facility], , XR KNEE RT 1TO2V, 10/29/2022, 9:57. FINDINGS: Bones: No fractures or dislocations. No suspicious bony lesions. Mild tricompartmental degenerative changes of the right knee Soft tissues: No joint effusion. No suspicious soft tissue calcifications. IMPRESSION: Right knee without acute fracture or malalignment. Mild tricompartmental degenerative changes of the right knee. Dictated by: Felipe Cobos M.D. on 04/08/2023 at 18:16 Approved by: Felipe Cobos M.D. on 04/08/2023 at 18:17
== END ==
PROVIDERS: Family Provider Family Medicine; PCP Family Medicine; Referring Provider Family Medicine; Visit Provider Family Medicine
DX: M25.561 Pain in right knee (principal)
CPT/HCPCS: 73562

== ENCOUNTER → 2023-06-16 08:51 | Outpatient (CLI) | payer OTHER, MEDICAID, SELFPAY | PROVIDERS: Family Provider Family Medicine; PCP Family Medicine; Visit Provider Nurse Practitioner Family | DX: J02.9 Acute pharyngitis, unspecified (principal) | CPT/HCPCS: 87070 ==

== ENCOUNTER → 2023-07-01 17:45 | Outpatient (CLI) | payer OTHER, MEDICAID, SELFPAY ==
--- NOTE | 2023-07-01 17:51 | DI.RAD.S_ITS ---
PROCEDURE: XR ANKLE LT MIN 3V INDICATIONS: Left foot pain TECHNIQUE: 3 views of the ankle were acquired. COMPARISON: [facility], CR, XR ANKLE LT 2V, 10/29/2022, 9:57. FINDINGS: Bones: Prior ORIF of presumed left ankle fracture with expected positioning of lateral fixation plate and multiple associated fixation screws. 2 surgical fixation screws are present involving the medial malleolus with bent appearance of the more lateral fixation screw. There is widening of the medial ankle mortise as well as the distal tibial fibular syndesmosis. Soft tissues: No tibiotalar joint effusion. Achilles tendon appears normal. IMPRESSION: 1. Prior ORIF with fixation hardware as described with the more medial fixation screw involving the medial malleolus having a bent appearance. 2. Widening of the medial ankle mortise as well as the distal tibial fibular syndesmosis. Findings appears similar to prior examination dated 10/29/2022. Dictated by: Neto ROSSI Interpreted: Piero Durán MD on 07/01/2023 at 20:53 Transcribed by: BERRY on 07/01/2023 at 20:56 Approved by: Piero Durán M.D. on 07/12/2023 at 17:46
--- NOTE | 2023-07-01 17:51 | DI.RAD.S_ITS ---
PROCEDURE: XR FOOT LT MIN 3V INDICATIONS: Left foot pain TECHNIQUE: 3 views of the foot were acquired. COMPARISON: [facility], CR, XR ANKLE LT MIN 3V, 07/01/2023, 18:01. FINDINGS: Bones: No fractures or dislocations. No suspicious bony lesions. Mild 1st MTP and diffuse interphalangeal joint space narrowing with mild periarticular osteophyte formation. Juxta-articular lucency involving the base of the 5th metatarsus. Postsurgical changes within the ankle as described in ankle dictation. Soft tissues: No tibiotalar joint effusion. Achilles tendon appears normal. IMPRESSION: 1. Mild 1st MTP and diffuse interphalangeal joint degeneration. 2. Possible erosion involving the base of the 5th metatarsus. 3. Postsurgical changes within the ankle as described in ankle dictation. Dictated by: Neto ROSSI Interpreted: Piero Durán MD on 07/01/2023 at 20:56 Transcribed by: BERRY on 07/01/2023 at 20:57 Approved by: Piero Durán M.D. on 07/12/2023 at 17:46
== END ==
PROVIDERS: Family Provider Family Medicine; PCP Family Medicine; Referring Provider Nurse Practitioner Family; Visit Provider Nurse Practitioner Family
DX: M19.072 Primary osteoarthritis, left ankle and foot (principal); M79.672 Pain in left foot
CPT/HCPCS: 73610; 73630

== ENCOUNTER 2023-08-21 21:11 | Emergency (ER) | payer OTHER, MEDICAID, SELFPAY ==
[2023-08-21 21:21] VITALS: BP 136/63; PULSE 92; RESP 22; TEMP 36.2; O2SAT 98; BMI 32.2
[2023-08-21 22:36] LABS: Influenza A - CEPHEID Flu A NEGATIVE (NEGATIVE); Influenza B - CEPHEID Flu B NEGATIVE (NEGATIVE)
[2023-08-21 22:39] LABS: COVID-19 CEPHEID 4-PLEX PCR POSITIVE (Negative)
--- NOTE | 2023-08-21 22:43 | ED_ITS ---
HPI - URI/Sore Throat General Chief Complaint: Upper Respiratory Symptoms Stated Complaint: Sore throat, Cough, Congestion, Diarrhea Time Seen by Provider: 08/21/23 22:43 Source: patient Mode of arrival: Ambulatory History of Present Illness HPI Narrative: This is a 43-year-old female with history of seizure disorder on lamotrigine, patient has recently restarted her folic acid. Patient states her seizure disorder has been fairly well controlled she is not had any recent seizures. She states last night she was very tired and woke up this morning at 0400 cough, nasal congestion, sore throat, subjective fever, myalgias, and diarrhea. Patient states no syncope. No recent seizures. Some mild headache. No shortness of breath or chest pain. She is had some mild nausea but very minimal. She states she has had taste and smell changes, she has been eating but states her appetite is low. Patient denies any abdominal pain. No back or flank pain. No dysuria urgency or frequency. No rashes or skin changes. Patient states her only medications are lamotrigine and folic acid. Patient states no known drug allergies. She has been taking [id number] cough and cold medication today. Related Data Home Medications Medication Instructions Recorded Confirmed folic acid PO 05/28/20 07/01/23 lamotrigine 100 mg tablet 450 mg PO DAILY 05/28/20 07/01/23 Previous Rx's Medication Instructions Recorded clotrimazole 1 % vaginal cream 1 appful vaginal BEDTIME Vaginal 06/02/23 (Gyne-Lotrimin 7) yeast infection #45 grams Allergies Allergy/AdvReac Type Severity Reaction Status Date / Time No Known Drug Allergies Allergy Verified 07/01/23 17:38 Review of Systems Review of Systems ROS Unobtainable: All systems reviewed & are unremarkable except as noted in HPI and below Patient History Medical History Epilepsy Scoliosis Viral syndrome Social History Smoking Status: Current some day smoker Smoking Status: Current some day smoker alcohol intake frequency: holidays/special occasions only Substance Use Type: does not use Exam Narrative Exam Narrative: GEN: well nourished, well appearing female, alert and oriented x 3, patient appears to be in mild distress. HEENT: Atraumatic, pupils are equal round reactive to light, extraocular movements are intact, nares has nasal congestion, TMs are clear with no fluid, there is no conjunctival pallor. Throat is clear without any exudates, erythema, tonsillar enlargement or uvular deviation HEART: Regular rate and rhythm without murmur, clicks, rubs. Pulses are equal in upper and lower extremities LUNGS:Lungs clear to auscultation, no wheezes, rales, crackles, chest moves symmetrically ABD:bowel sounds normal, soft, non-tender, no guarding, rebound, rigidity, no masses noted, no hepatosplenomegaly :No CVA tenderness MSCL: Non-tender, no muscle atrophy, muscles strength 5/5 upper and lower extremities, full range of motion, normal gait NEURO:CN 2-12 intact, sensation normal SKIN: No rash, erythema or other skin changes. Initial Vital Signs Initial Vital Signs: Vital Signs Temperature 97.2 F L 08/21/23 21:21 Pulse Rate 92 H 08/21/23 21:21 Respiratory Rate 22 08/21/23 21:21 Blood Pressure 136/63 08/21/23 21:21 Pulse Oximetry 98 08/21/23 21:21 Oxygen Delivery Method Room Air 08/21/23 21:21 Course Orders Ordered: ED Orders 08/21/23 21:32 Covid-19 + FLU A/B by PCR Stat Vital Signs Vital signs: Vital Signs - 8 hr 08/21/23 21:21 08/21/23 23:01 Temperature 97.2 F L 97.9 F Pulse Rate 92 H 85 Respiratory Rate 22 18 Blood Pressure 136/63 145/79 H Pulse Oximetry 98 100 Oxygen Delivery Method Room Air Room Air MDM - URI/Sore Throat Lab Data Labs: Lab Results 08/21/23 Range/Units 21:32 SARS-CoV-2 (PCR) Positive H (Negative) Influenza A (RT-PCR) Flu a negative (NEGATIVE) Influenza B (RT-PCR) Flu b negative (NEGATIVE) MDM Narrative Medical decision making narrative: 43-year-old female with symptoms consistent with COVID infection who has tested positive for COVID, patient has overall appropriate vitals, well-appearing. She does have a history of seizure disorder, states has been well controlled discussed return precautions treatment for fevers. Patient states she is had some mild nausea but defers anything for nausea medications. Discharge Plan Departure Patient Disposition: Home Clinical Impression: COVID-19 virus infection Instructions: DI for COVID-19 (Suspected or Confirmed ) Activity Restrictions/Additional Instructions: *You have been diagnosed with COVID-19 infection. *What to do: * per recommendations from the CDC and the [facility] Department of Health * stay home except to get medical care. Restrict activities outside your home, except for getting medical care. Do not go to work, school, or public areas. Avoid using public transportation, ride sharing, or taxis. * separate yourself from other people in your home. * call ahead before visiting your doctor * Wear a face mask * Cover your coughs and sneezes * Clean your hands often * Avoid sharing household items * Clean all high-touch services every day * Monitor your symptoms and seek prompt medical attention if your illness is worsening, particularly with difficulty in breathing. Please return for rapidly worsening symptoms, shortness of breath, lightheadedness or passing out, new chest pain, new swelling in her extremities, persistent vomiting, black or bloody stools or other new or concerning changes. Prescriptions: No Action lamotrigine 100 mg tablet 450 mg PO DAILY folic acid PO clotrimazole [Gyne-Lotrimin 7] 1 % cream 1 appful vaginal BEDTIME Qty: 45 0RF Referrals: Devin Knutson MD [Primary Care Provider] - Stand Alone Forms: Patient Portal/API, Work Release Note
[2023-08-21 23:01] VITALS: BP 145/79; PULSE 85; RESP 18; TEMP 36.6; O2SAT 100
== END 2023-08-21 23:08 | disposition home or self-care (01) ==
PROVIDERS: Emergency Provider Emergency Medicine; Family Provider Family Medicine; PCP Family Medicine
DX: U07.1 COVID-19 (principal)
CPT/HCPCS: 87635; 99281; 99282; C9803

== ENCOUNTER → 2023-09-11 10:39 | Outpatient (CLI) | payer OTHER, MEDICAID, SELFPAY ==
--- NOTE | 2023-09-11 10:41 | DI.MRI.S_ITS ---
PROCEDURE: MR KNEE RT WO CON INDICATIONS: Chronic Right Knee Pain TECHNIQUE: Noncontrast sagittal PD fast spin echo and T2 fast spin echo with fat saturation, sagittal 3-D FLASH with fat saturation; coronal T1 spin echo and PD fast spin echo with fat saturation, and axial PD fast spin echo with fat saturation through the knee. COMPARISON: None. FINDINGS: Image quality: Excellent. Anterior Cruciate Ligament: Intact. Posterior Cruciate Ligament: Intact. Medial Collateral Ligament: Intact. Lateral Collateral Ligament: Intact. Medial Meniscus: Intact. Lateral Meniscus: The diffuse horizontal oblique tearing of the lateral meniscus involving the meniscal body as well as the anterior and posterior horns and extending to the free edge margin and the tibial articular surface. A prominent lateral parameniscal cyst is seen measuring 15 x 8 x 19 mm. Additional smaller parameniscal cyst is seen anterolaterally measuring up to 7 mm in maximum dimension. Medial and Lateral Tendons: The semimembranosus tendon insertions and meniscocapsular junction appear intact. Visualized portions of the pes anserinus tendons appear normal. No abnormal bursal fluid. The long and short heads of the biceps femoris tendon appear intact. The popliteus tendon appears intact. No signs of posterolateral corner injury. Iliotibial band appears normal. Anterior Structures: The quadriceps and patellar tendons appear intact. No patellar subluxation. No femoral trochlear dysplasia or ventral trochlear prominence. No edema in the infrapatellar fat pad. Bones: No acute trabecular bone injury or fracture. Medial Femorotibial Cartilage: No focal cartilage defect. Lateral Femorotibial Cartilage: High-grade partial-thickness cartilage thinning and irregularity is seen at the central weight-bearing portion of the lateral femorotibial compartment with small marginal osteophytes and mild subchondral edema. Patellofemoral Cartilage: Partial-thickness cartilage irregularity is seen at the lateral patellar facet and the lateral femoral trochlea. Soft Tissues: Small joint effusion is present. No significant medial popliteal cyst. The musculature surrounding the knee is normal in bulk. IMPRESSION: 1. Diffuse horizontal oblique tearing throughout the lateral meniscus extending to the free edge margin and the inner third of the tibial articular surface. Parameniscal cysts are seen laterally measuring up to 19 mm and anterolaterally measuring 7 mm. 2. Grade 3 chondromalacia is seen in the weight-bearing portion of the lateral femorotibial compartment. Mild grade 2 chondromalacia in the anterior compartment. 3. Cruciate and collateral ligaments are intact. No acute trabecular bone injury. 4. Small joint effusion. Approved by: Gibran Resendiz M.D. on 09/13/2023 at 10:22
== END ==
PROVIDERS: Family Provider Family Medicine; PCP Family Medicine; Referring Provider Family Medicine; Visit Provider Family Medicine
DX: M25.561 Pain in right knee (principal); G89.29 Other chronic pain; S83.281A Other tear of lateral meniscus, current injury, right knee, initial encounter; M25.861 Other specified joint disorders, right knee; M94.261 Chondromalacia, right knee; M25.461 Effusion, right knee
CPT/HCPCS: 73721

== ENCOUNTER 2023-11-19 01:47 | Emergency (ER) | payer OTHER, MEDICAID, SELFPAY ==
[2023-11-19 01:54] VITALS: BP 138/89; PULSE 132; RESP 22; TEMP 36.8; O2SAT 100; BMI 31.8
[2023-11-19 02:25] VITALS: PULSE 118; O2SAT 98
[2023-11-19 02:26] VITALS: BP 145/71; PULSE 102; RESP 18; O2SAT 99
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
== END 2023-11-19 02:32 | disposition home or self-care (01) ==
PROVIDERS: Emergency Provider Emergency Medicine; Family Provider Family Medicine; PCP Family Medicine
DX: G40.919 Epilepsy, unspecified, intractable, without status epilepticus (principal)
CPT/HCPCS: 99281

== ENCOUNTER 2024-10-28 20:56 | Emergency (ER) | payer OTHER, MEDICAID, SELFPAY ==
[2024-10-28 21:02] VITALS: BP 117/62; PULSE 82; RESP 17; TEMP 36.9; O2SAT 100; BMI 28.3
--- NOTE | 2024-10-28 23:29 | ED_ITS ---
HPI - Recheck/Abnormal Lab/Rx General Chief Complaint: Recheck/Abnormal Lab/Rx Stated Complaint: ankle px, post sx 10/27 meds not helping Time Seen by Provider: 10/28/24 22:48 Source: patient and family Mode of arrival: Wheelchair History of Present Illness HPI narrative: Patient is a 44-year-old female. Underwent a left ankle surgery approximately 24 hours ago at an outside facility. Was sent home with hydrocodone. She was allergic to oxycodone. States the hydrocodone is not treating her pain. She had an increase in pain after the nerve block that was placed during the surgery were off. She contacted the office of the provider who did her surgery. The provider international project manager apparently put in a prescription for oral Dilaudid however patient was unable to medicinal plant picker the medication before pharmacy is closed. She was here for pain control. Related Data Home Medications Medication Instructions Recorded Confirmed folic acid PO 05/28/20 07/01/23 lamotrigine 100 mg tablet 450 mg PO DAILY 05/28/20 07/01/23 Previous Rx's Medication Instructions Recorded clotrimazole 1 % vaginal cream 1 appful vaginal BEDTIME Vaginal 06/02/23 (Gyne-Lotrimin 7) yeast infection #45 grams Allergies Allergy/AdvReac Type Severity Reaction Status Date / Time Penicillins Allergy apnea Verified 10/28/24 21:01 Quinolones Allergy neurotoxic Verified 10/28/24 21:01 cyclobenzaprine AdvReac Seizures Verified 10/28/24 21:01 [From Flexeril] oxycodone AdvReac Vomiting Verified 10/28/24 21:01 Review of Systems Review of Systems Narrative: See HPI Patient History Medical History Viral syndrome Epilepsy Scoliosis Social History Smoking Status: Current some day smoker Smoking Status: Current some day smoker tobacco type: vaping alcohol intake frequency: holidays/special occasions only Substance Use Type: does not use Exam Initial Vital Signs Initial Vital Signs: Vital Signs Temperature 98.4 F 10/28/24 21:02 Pulse Rate 82 10/28/24 21:02 Respiratory Rate 17 10/28/24 21:02 Blood Pressure 117/62 10/28/24 21:02 Pulse Oximetry 100 10/28/24 21:02 Oxygen Delivery Method Room Air 10/28/24 21:02 Skin Other: Skin of the exposed toes is unremarkable. Neuro Other: Sensation intact to light touch the exposed toes. Extrem Other: Surgical splint in place to left leg. Capillary refill to the exposed toes is brisk. Course Orders Ordered: Discontinued Medications Hydromorphone HCl (Hydromorphone 1 Mg Inj) 1 mg IM NOW ONE Stop: 10/28/24 23:31 Last Admin: 10/28/24 23:42 Dose: 1 mg Documented By: LIZ Vital Signs Vital signs: Vital Signs - 8 hr 10/28/24 21:02 Temperature 98.4 F Pulse Rate 82 Respiratory Rate 17 Blood Pressure 117/62 Pulse Oximetry 100 Oxygen Delivery Method Room Air MDM - Recheck/Abnormal Lab/Rx MDM Narrative Medical decision making narrative: Patient has a prescription for pain medication that she can medicinal plant picker in the pharmacy is open. She was given a dose of IM pain medication here in the emergency department. Will discharge patient home with instructions to continue to follow postoperative instructions given by the surgical provider. Discharge Plan Departure Patient Disposition: Home Clinical Impression: Post-operative pain Activity Restrictions/Additional Instructions: Continue to follow all of the instructions given to you by the surgeon. Tomorrow when the pharmacy opens fill the prescription that was prescribed for you today by the on-call orthopedic surgeon. Return to the emergency department for new symptoms. Prescriptions: No Action lamotrigine 100 mg tablet 450 mg PO DAILY folic acid PO clotrimazole [Gyne-Lotrimin 7] 1 % cream 1 appful vaginal BEDTIME Qty: 45 0RF Referrals: Devin Knutson MD [Primary Care Provider] - Stand Alone Forms: Patient Portal/API/Survey
[2024-10-28] MEDS: HYDROMORPHONE 1 MG INJ IM (23:42)
== END 2024-10-28 23:45 | disposition home or self-care (01) ==
PROVIDERS: Emergency Provider Emergency Medicine; Family Provider Family Medicine; PCP Family Medicine
DX: M25.572 Pain in left ankle and joints of left foot (principal); G89.18 Other acute postprocedural pain
CPT/HCPCS: 96372; 99283; 99284; J1171

== ENCOUNTER 2025-05-10 11:30 | Outpatient (RCR) | payer OTHER, MEDICAID, SELFPAY ==
--- NOTE | 2024-12-13 14:30 | PT.OIE ---
Current Diagnoses Other chronic pain (12/13/24) Pain in left ankle and joints of left foot (12/13/24) Displaced bimalleolar fracture of left lower leg, subsequent encounter for closed fracture with malunion (12/13/24) Sprain of tibiofibular ligament of left ankle, sequela (12/13/24) Pain due to internal orthopedic prosthetic devices, implants and grafts, initial encounter (12/13/24) Past Medical History (Last Reviewed 10/29/24 @ 05:00 by Ramón Keene DO) Epilepsy Scoliosis Viral syndrome Visit Care Team Role Provider Type Devin Knutson MD Family Provider Physician Primary Care Provider Specialty: Family Practice Address: [address] [place], [address] Email: [email or web address] Davey Craig DPM Attending Provider Non-Staff Referring Provider Specialty: Podiatry Address: [facility] [place], [address] Email: Physical Therapy Initial Evaluation PT-OP-A Visit Information Start: 12/13/24 14:27 Freq: Status: Active Protocol: Document 12/13/24 13:45 DCW (Rec: 12/13/24 14:28 DCW [id number]) Out-Patient Physical Therapy Visit Information Visit Information Visit Type Initial Evaluation Visit Start Time 13:45 Visit Stop Time 14:30 Visit Number 1 Number of APPLICATION SYSTEMS ADMINISTRATOR Visits 0 Evaluation Information Evaluation Date 12/13/24 PT-OP-B Current Condition Start: 12/13/24 14:27 Freq: Status: Active Protocol: Document 12/13/24 13:45 DCW (Rec: 12/14/24 14:13 DCW [id number]) Current Condition History of Current Condition Onset Date 13 year history Current Complaints Post-surgical left ankle pain/ stiffness History of Current Condition Pt is a 44 year old female presenting two months s/p revision of hardware 13 years after original ankle injury. Pt reports originally fractured tib/fib 13 years ago slipping on ice, and at the time, underwent surgical repair. Ankle has continued to bother her since then, after recent imaging, was told that her hardware was coming loose, and the wrong screws may have been used, and a revision was needed. Pt underwent revision two months ago, and was non-weight bearing until one week ago, now cleared to ambulate in a walking boot. Pt admits walking around [place] on left leg has started to mess up my right knee. Pt in general very hyper mobile, has resulted inn multiple injuries to both ankles, knees , and hips. Pt notes she will likely need a revision of the hardware in her right ankle sometime next year. Has follow -up with surgeon in two weeks, is hoping for more clearance for weight-bearing. So far, has largely been doing ankle mobility/stretching at home. 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 PT-OP-C Subjective Start: 12/13/24 14:27 Freq: Status: Active Protocol: Document 12/13/24 13:45 DCW (Rec: 12/14/24 14:13 DCW [id number]) OP-PT Subjective Patient Comments Patient Comments I can't really wear sneakers or higher topped shoes, because it puts too much pressure on the hardware in my ankle, and really hurts. Patient Questionnaires Lower Extremity Functional Scale LEFS Score 40/80 = 50% LEFS Impairment 20 to 39% Impaired (Score 48- 62) OP-PT Pain Assessment Pain Assessment Grid Paper Pain Assessment Grid Completed Yes Location Left Ankle Intensity 5 Scale Used Numeric (0 - 10) Description Aching,Tender,Throbbing Frequency Frequent PT-OP-F Manual Assessment Start: 12/13/24 14:27 Freq: Status: Active Protocol: Document 12/13/24 13:45 DCW (Rec: 12/14/24 14:13 DCW [id number]) Manual Assessments Soft Tissue Assessment Soft Tissue Mobility Assessment Mild edema along inferior aspect of both L malleoli PT-OP-J Posture/Palpation/Skin Start: 12/14/24 14:13 Freq: Status: Active Protocol: Document 12/13/24 13:45 DCW (Rec: 12/14/24 14:28 DCW [id number]) Skin Assessment Circumference Measurement Figure-8 Location Left ankle Measurement (Centimeters) 52.4 Comments Right ankle Figure-8 = 51cm PT-OP-K Range of Motion Start: 12/13/24 14:27 Freq: Status: Active Protocol: Document 12/13/24 13:45 DCW (Rec: 12/14/24 14:13 DCW [id number]) Ankle and Foot Goniometric Range of Motion Ankle and Foot Right Active Testing Position Sitting Dorsiflexion with Knee Flexed 10 Dorsiflexion with Knee Extended 0 Plantarflexion 50 Inversion 50 Eversion 25 Left Passive Testing Position Sitting Dorsiflexion with Knee Flexed 4 Dorsiflexion with Knee Extended 0 Plantarflexion 50 Inversion 25 Eversion 20 Left Active Testing Position Sitting Dorsiflexion with Knee Flexed 8 Plantarflexion 46 Inversion 20 Eversion 12 Comments DF with knee extended measured at -4? PT-OP-M Strength Start: 12/13/24 14:27 Freq: Status: Active Protocol: Document 12/13/24 13:45 DCW (Rec: 12/14/24 14:13 DCW [id number]) Ankle/Foot Strength Ankle and Foot Manual Muscle Testing Right Dorsiflexion (L4) 4+ Good+ Plantarflexion (S1) 4+ Good+ Inversion 4+ Good+ Eversion (S1) 4+ Good+ Left Dorsiflexion (L4) 3+ Fair+ Plantarflexion (S1) 3+ Fair+ Inversion 3+ Fair+ Eversion (S1) 3+ Fair+ PT-OP-Q Treatments Start: 12/13/24 14:27 Freq: Status: Active Protocol: Document 12/13/24 13:45 DCW (Rec: 12/13/24 14:28 DC [id number]) Therapeutic Exercises Sitting Exercises Ankle Flexion Sitting Exercise Name 4-way ankle flexion Side left Resistance Lv 1 PT-OP-T Assessment and Plan Start: 12/13/24 14:27 Freq: Status: Active Protocol: Document 12/13/24 13:45 DCW (Rec: 12/14/24 14:28 DCW [id number]) Physical Therapy Assessment Rehab Potential Rehabilitation Potential Good Evaluation Complexity Number of Personal Factors/Comorbidities 3 or More Number of Body Systems Impaired 4 or More Clinical Presentation at Evaluation Unstable Impairments Impairments Activity Tolerance,Balance, Functional Activities, Functional Mobility,Gait,Pain, ROM,Soft Tissue Mobility, Strength Goals Two Impairment Pt unable to ambulate without walking boot Occupational Health Physiotherapist Goal (LTG) Pt to progress through post-op precautions to return to WNL gait pattern without walking boot in 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 Mcfp Goal (LTG) Pt to demonstrate active ankle DF with knee extended to at least 5? in order to demonstrate improvement in functional ankle mobility and strength s/p surgical revision . LTG Duration 03/13/25 Assessment Summary Assessment Pt presents with signs and symptoms as expected two months s/p surgical revision of hardware in left ankle. Pt is 13 years s/p initial injury . Rehab may be limited by pt's injury history and joint hypermobility. Currently only allowed to bear weight on left foot when wearing walking boot. Should benefit from mobility and strengthening, with transition to gait training and balance challenges when cleared for further weight bearing. Physical Therapy Plan Frequency and Duration Frequency of Treatment 2x/Week Plan of Care Start Date 12/13/24 Plan of Care End Date 03/13/25 Therapeutic Interventions Therapeutic Interventions Balance Training,Gait Training ,Home Exercise Program,Joint Mobilizations,Manual Therapy, Neuromuscular Re-education, Patient/Caregiver Education, Self-Care/Home Management,Soft Tissue Mobilization, Therapeutic Activities, Therapeutic Exercises Modalities Cold Pack/Ice Massage,Hot Packs Next Visit Focus/Plan Next Note Type Treatment Note Next Visit Plan Ankle stretching and strengthening, progress weight bearing exercises when cleared
--- NOTE | 2024-12-13 14:30 | PT.OPPOC ---
Physical, Occupational & Speech Therapy At [facility] Current Diagnoses Other chronic pain (12/13/24) Pain in left ankle and joints of left foot (12/13/24) Displaced bimalleolar fracture of left lower leg, subsequent encounter for closed fracture with malunion (12/13/24) Sprain of tibiofibular ligament of left ankle, sequela (12/13/24) Pain due to internal orthopedic prosthetic devices, implants and grafts, initial encounter (12/13/24) Visit Care Team Role Provider Type Devin Knutson MD Family Provider Physician Primary Care Provider Specialty: Family Practice [address] [place], [address] Email: [email or web address] Davey Craig DPM Attending Provider Non-Staff Referring Provider Specialty: Podiatry Address: [facility] [place], [address] Email: Plan Of Care PT-OP-B Current Condition Start: 12/13/24 14:27 Freq: Status: Active Protocol: Document 12/13/24 13:45 DCW (Rec: 12/14/24 14:13 DCW [id number]) Current Condition History of Current Condition Onset Date 13 year history Current Complaints Post-surgical left ankle pain/ stiffness History of Current Condition Pt is a 44 year old female presenting two months s/p revision of hardware 13 years after original ankle injury. Pt reports originally fractured tib/fib 13 years ago slipping on ice, and at the time, underwent surgical repair. Ankle has continued to bother her since then, after recent imaging, was told that her hardware was coming loose, and the wrong screws may have been used, and a revision was needed. Pt underwent revision two months ago, and was non-weight bearing until one week ago, now cleared to ambulate in a walking boot. Pt admits walking around [place] on left leg has started to mess up my right knee. Pt in general very hyper mobile, has resulted inn multiple injuries to both ankles, knees , and hips. Pt notes she will likely need a revision of the hardware in her right ankle sometime next year. Has follow -up with surgeon in two weeks, is hoping for more clearance for weight-bearing. So far, has largely been doing ankle mobility/stretching at home. 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 PT-OP-T Assessment and Plan Start: 12/13/24 14:27 Freq: Status: Active Protocol: Document 12/13/24 13:45 DCW (Rec: 12/14/24 14:28 DCW [id number]) Physical Therapy Assessment Rehab Potential Rehabilitation Potential Good Evaluation Complexity Number of Personal Factors/Comorbidities 3 or More Number of Body Systems Impaired 4 or More Clinical Presentation at Evaluation Unstable Impairments Impairments Activity Tolerance,Balance, Functional Activities, Functional Mobility,Gait,Pain, ROM,Soft Tissue Mobility, Strength Goals Two Impairment Pt unable to ambulate without walking boot Refrigeration Mechanic Helper Goal (LTG) Pt to progress through post-op precautions to return to WNL gait pattern without walking boot in 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 Prison Goal (LTG) Pt to demonstrate active ankle DF with knee extended to at least 5? in order to demonstrate improvement in functional ankle mobility and strength s/p surgical revision . LTG Duration 03/13/25 Assessment Summary Assessment Pt presents with signs and symptoms as expected two months s/p surgical revision of hardware in left ankle. Pt is 13 years s/p initial injury . Rehab may be limited by pt's injury history and joint hypermobility. Currently only allowed to bear weight on left foot when wearing walking boot. Should benefit from mobility and strengthening, with transition to gait training and balance challenges when cleared for further weight bearing. Physical Therapy Plan Frequency and Duration Frequency of Treatment 2x/Week Plan of Care Start Date 12/13/24 Plan of Care End Date 03/13/25 Therapeutic Interventions Therapeutic Interventions Balance Training,Gait Training ,Home Exercise Program,Joint Mobilizations,Manual Therapy, Neuromuscular Re-education, Patient/Caregiver Education, Self-Care/Home Management,Soft Tissue Mobilization, Therapeutic Activities, Therapeutic Exercises Modalities Cold Pack/Ice Massage,Hot Packs Next Visit Focus/Plan Next Note Type Treatment Note Next Visit Plan Ankle stretching and strengthening, progress weight bearing exercises when cleared Plan of Care Dates Plan of Care Start Date 12/13/24 Plan of Care End Date 03/13/25 Electronically Signed by: Jean Ogden, PT 12/14/24 5902 If you are in agreement with this Plan of Care, please return a signed and dated copy. I have reviewed this Plan of Care and certify that the skilled therapy services above are required to meet the patient?s needs. Physician Signature Date Printed Name and Credentials Clinical Instructor Signature Printed Name and Credentials
--- NOTE | 2024-12-27 17:51 | PT.OTN ---
Current Diagnoses Other chronic pain (12/27/24) Pain in left ankle and joints of left foot (12/27/24) Displaced bimalleolar fracture of left lower leg, subsequent encounter for closed fracture with malunion (12/27/24) Sprain of tibiofibular ligament of left ankle, sequela (12/27/24) Pain due to internal orthopedic prosthetic devices, implants and grafts, initial encounter (12/27/24) Physical Therapy Treatment Note PT-OP-A Visit Information Start: 12/13/24 14:27 Freq: Status: Active Protocol: Document 12/27/24 17:00 DCW (Rec: 12/27/24 17:51 DCW [id number]) Out-Patient Physical Therapy Visit Information Visit Information Visit Type Treatment Note Visit Start Time 17:00 Visit Stop Time 17:45 Visit Number 2 Number of PIE TOPPER Visits 0 Evaluation Information Evaluation Date 12/13/24 PT-OP-B Current Condition Start: 12/13/24 14:27 Freq: Status: Active Protocol: Document 12/13/24 13:45 DCW (Rec: 12/14/24 14:13 DCW [id number]) Current Condition History of Current Condition Onset Date 13 year history Current Complaints Post-surgical left ankle pain/ stiffness History of Current Condition Pt is a 44 year old female presenting two months s/p revision of hardware 13 years after original ankle injury. Pt reports originally fractured tib/fib 13 years ago slipping on ice, and at the time, underwent surgical repair. Ankle has continued to bother her since then, after recent imaging, was told that her hardware was coming loose, and the wrong screws may have been used, and a revision was needed. Pt underwent revision two months ago, and was non-weight bearing until one week ago, now cleared to ambulate in a walking boot. Pt admits walking around [place] on left leg has started to mess up my right knee. Pt in general very hyper mobile, has resulted inn multiple injuries to both ankles, knees , and hips. Pt notes she will likely need a revision of the hardware in her right ankle sometime next year. Has follow -up with surgeon in two weeks, is hoping for more clearance for weight-bearing. So far, has largely been doing ankle mobility/stretching at home. 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 PT-OP-C Subjective Start: 12/13/24 14:27 Freq: Status: Active Protocol: Document 12/27/24 17:00 DCW (Rec: 12/27/24 17:51 DCW [id number]) OP-PT Subjective Patient Comments Patient Comments Pt has follow-up with surgeon tomorrow, pain has been minimal. Trying to decrease WBing in boot by using w/c to help get around her apartment or using the electric cart at the store. PT-OP-F Manual Assessment Start: 12/13/24 14:27 Freq: Status: Active Protocol: Document 12/13/24 13:45 DCW (Rec: 12/14/24 14:13 DCW [id number]) Manual Assessments Soft Tissue Assessment Soft Tissue Mobility Assessment Mild edema along inferior aspect of both L malleoli PT-OP-J Posture/Palpation/Skin Start: 12/14/24 14:13 Freq: Status: Active Protocol: Document 12/13/24 13:45 DCW (Rec: 12/14/24 14:28 DCW [id number]) Skin Assessment Circumference Measurement Figure-8 Location Left ankle Measurement (Centimeters) 52.4 Comments Right ankle Figure-8 = 51cm PT-OP-K Range of Motion Start: 12/13/24 14:27 Freq: Status: Active Protocol: Document 12/13/24 13:45 DCW (Rec: 12/14/24 14:13 DCW [id number]) Ankle and Foot Goniometric Range of Motion Ankle and Foot Right Active Testing Position Sitting Dorsiflexion with Knee Flexed 10 Dorsiflexion with Knee Extended 0 Plantarflexion 50 Inversion 50 Eversion 25 Left Passive Testing Position Sitting Dorsiflexion with Knee Flexed 4 Dorsiflexion with Knee Extended 0 Plantarflexion 50 Inversion 25 Eversion 20 Left Active Testing Position Sitting Dorsiflexion with Knee Flexed 8 Plantarflexion 46 Inversion 20 Eversion 12 Comments DF with knee extended measured at -4? PT-OP-M Strength Start: 12/13/24 14:27 Freq: Status: Active Protocol: Document 12/13/24 13:45 DCW (Rec: 12/14/24 14:13 DCW [id number]) Ankle/Foot Strength Ankle and Foot Manual Muscle Testing Right Dorsiflexion (L4) 4+ Good+ Plantarflexion (S1) 4+ Good+ Inversion 4+ Good+ Eversion (S1) 4+ Good+ Left Dorsiflexion (L4) 3+ Fair+ Plantarflexion (S1) 3+ Fair+ Inversion 3+ Fair+ Eversion (S1) 3+ Fair+ PT-OP-Q Treatments Start: 12/13/24 14:27 Freq: Status: Active Protocol: Document 12/27/24 17:00 DCW (Rec: 12/27/24 17:51 DCW [id number]) Therapeutic Exercises Sitting Exercises BAPS Sitting Exercise Name BAPS Board Side left Resistance Lv 2->Lv 3 Comments PF/DF, Ev/Inv, CW/CCW Intrinsic foot Sitting Exercise Name [place] pick-up, towel scrunch, short foot Side left Manual Therapy Treatment Consent Patient gave verbal consent for manual Yes treatment Joint Mobilizations Ankle Joint Left Ankle Direction P<->A PT-OP-T Assessment and Plan Start: 12/13/24 14:27 Freq: Status: Active Protocol: Document 12/27/24 17:00 DCW (Rec: 12/27/24 17:51 DC [id number]) Physical Therapy Assessment Impairments Impairments Activity Tolerance,Balance, Functional Activities, Functional Mobility,Gait,Pain, ROM,Soft Tissue Mobility, Strength Goals Two Impairment Pt unable to ambulate without walking boot Construction Equipment Technician Goal (LTG) Pt to progress through post-op precautions to return to WNL gait pattern without walking boot 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 Shelter Goal (LTG) Pt to demonstrate active ankle DF with knee extended to at least 5? in order to demonstrate improvement in functional ankle mobility and strength s/p surgical revision . LTG Duration 03/13/25 Assessment Summary Assessment Good tolerance to activity today, pt did well with ROM and intrinsic foot strengthening. Still limited due to no weight bearing without boot, hoping to relax restrictions following pt's follow-up with surgeon tomorrow. Physical Therapy Plan Frequency and Duration Frequency of Treatment 2x/Week Plan of Care Start Date 12/13/24 Plan of Care End Date 03/13/25 Therapeutic Interventions Therapeutic Interventions Balance Training,Gait Training ,Home Exercise Program,Joint Mobilizations,Manual Therapy, Neuromuscular Re-education, Patient/Caregiver Education, Self-Care/Home Management,Soft Tissue Mobilization, Therapeutic Activities, Therapeutic Exercises Modalities Cold Pack/Ice Massage,Hot Packs Next Visit Focus/Plan Next Note Type Treatment Note Next Visit Plan Ankle stretching and strengthening, progress weight bearing exercises when cleared
--- NOTE | 2024-12-29 12:15 | PT.OTN ---
Current Diagnoses Other chronic pain (01/02/25) Pain in left ankle and joints of left foot (01/02/25) Displaced bimalleolar fracture of left lower leg, subsequent encounter for closed fracture with malunion (01/02/25) Sprain of tibiofibular ligament of left ankle, sequela (01/02/25) Pain due to internal orthopedic prosthetic devices, implants and grafts, initial encounter (01/02/25) Physical Therapy Treatment Note PT-OP-A Visit Information Start: 12/13/24 14:27 Freq: Status: Active Protocol: Document 12/29/24 10:47 NBM (Rec: 12/29/24 12:40 NBM [id number]) Out-Patient Physical Therapy Visit Information Visit Information Visit Type Treatment Note Visit Start Time 10:47 Visit Stop Time 11:30 Visit Number 3 Number of SOLID PLASTERER Visits 1 Evaluation Information Evaluation Date 12/13/24 Precautions Precautions *pt reports cold intolerance* PT-OP-B Current Condition Start: 12/13/24 14:27 Freq: Status: Active Protocol: Document 12/13/24 13:45 DCW (Rec: 12/14/24 14:13 DCW [id number]) Current Condition History of Current Condition Onset Date 13 year history Current Complaints Post-surgical left ankle pain/ stiffness History of Current Condition Pt is a 44 year old female presenting two months s/p revision of hardware 13 years after original ankle injury. Pt reports originally fractured tib/fib 13 years ago slipping on ice, and at the time, underwent surgical repair. Ankle has continued to bother her since then, after recent imaging, was told that her hardware was coming loose, and the wrong screws may have been used, and a revision was needed. Pt underwent revision two months ago, and was non-weight bearing until one week ago, now cleared to ambulate in a walking boot. Pt admits walking around [place] on left leg has started to mess up my right knee. Pt in general very hyper mobile, has resulted inn multiple injuries to both ankles, knees , and hips. Pt notes she will likely need a revision of the hardware in her right ankle sometime next year. Has follow -up with surgeon in two weeks, is hoping for more clearance for weight-bearing. So far, has largely been doing ankle mobility/stretching at home. 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 PT-OP-C Subjective Start: 12/13/24 14:27 Freq: Status: Active Protocol: Document 12/29/24 10:47 NBM (Rec: 12/29/24 12:40 NBM [id number]) OP-PT Subjective Patient Comments Patient Comments Nicanor reports cleared for weightbearing by surgeon yesterday and given heel lock brace for L ankle.R knee has been bothering her more, she thinks from weather and also L ankle compensation, and also due for next round of hyoloraunic acid shots in a couple months. Pain R knee 3-4 /10, L ankle 4-5/10 but partially because of cold weather and brace too tight, and R ankle 0/10. PT-OP-F Manual Assessment Start: 12/13/24 14:27 Freq: Status: Active Protocol: Document 12/13/24 13:45 DCW (Rec: 12/14/24 14:13 DCW [id number]) Manual Assessments Soft Tissue Assessment Soft Tissue Mobility Assessment Mild edema along inferior aspect of both L malleoli PT-OP-J Posture/Palpation/Skin Start: 12/14/24 14:13 Freq: Status: Active Protocol: Document 12/13/24 13:45 DCW (Rec: 12/14/24 14:28 DCW [id number]) Skin Assessment Circumference Measurement Figure-8 Location Left ankle Measurement (Centimeters) 52.4 Comments Right ankle Figure-8 = 51cm PT-OP-K Range of Motion Start: 12/13/24 14:27 Freq: Status: Active Protocol: Document 12/13/24 13:45 DCW (Rec: 12/14/24 14:13 DCW [id number]) Ankle and Foot Goniometric Range of Motion Ankle and Foot Right Active Testing Position Sitting Dorsiflexion with Knee Flexed 10 Dorsiflexion with Knee Extended 0 Plantarflexion 50 Inversion 50 Eversion 25 Left Passive Testing Position Sitting Dorsiflexion with Knee Flexed 4 Dorsiflexion with Knee Extended 0 Plantarflexion 50 Inversion 25 Eversion 20 Left Active Testing Position Sitting Dorsiflexion with Knee Flexed 8 Plantarflexion 46 Inversion 20 Eversion 12 Comments DF with knee extended measured at -4? PT-OP-M Strength Start: 12/13/24 14:27 Freq: Status: Active Protocol: Document 12/13/24 13:45 DCW (Rec: 12/14/24 14:13 DCW [id number]) Ankle/Foot Strength Ankle and Foot Manual Muscle Testing Right Dorsiflexion (L4) 4+ Good+ Plantarflexion (S1) 4+ Good+ Inversion 4+ Good+ Eversion (S1) 4+ Good+ Left Dorsiflexion (L4) 3+ Fair+ Plantarflexion (S1) 3+ Fair+ Inversion 3+ Fair+ Eversion (S1) 3+ Fair+ PT-OP-Q Treatments Start: 12/13/24 14:27 Freq: Status: Active Protocol: Document 12/29/24 10:47 NBM (Rec: 12/29/24 12:40 [facility] [id number]) Therapeutic Exercises Sitting Exercises Alphabet Sitting Exercise Name 1.CW/CCW 2.writing ABC's - added to HEP Side left Comments cues for ankle only, no knee involvement Intrinsic foot Sitting Exercise Name [place] pick-up, towel scrunch, short foot Side left Ankle Flexion Sitting Exercise Name 4-way ankle flexion Side left Resistance Lv 1 Gait Training Gait Activity Ambulation Device Used L ankle brace heel lock Level of Assistance SBA Surface firm Distance/Duration 4x15 ft Treatment Focus normalizing gait mechanics Comments Pt presents without walking boot cleared for fool weightbearing and requires cues for heel strike, push off , increased stance time on LLE , and reciprocal arm swing. Limited ankle ROM noted in all planes. Manual Therapy Treatment Consent Patient gave verbal consent for manual Yes treatment Joint Mobilizations Ankle Joint Left Ankle Direction P<->A PT-OP-T Assessment and Plan Start: 12/13/24 14:27 Freq: Status: Active Protocol: Document 12/29/24 10:47 NBM (Rec: 12/29/24 12:40 [facility] [id number]) Physical Therapy Assessment Impairments Impairments Activity Tolerance,Balance, Functional Activities, Functional Mobility,Gait,Pain, ROM,Soft Tissue Mobility, Strength Goals Two Impairment Pt unable to ambulate without walking boot Payroll Associate Goal (LTG) Pt to progress through post-op precautions to return to WNL gait pattern without walking boot in 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 Limited ankle ROM noted in all planes. LTG Duration 03/14/25 One Impairment Pt does not have an appropriate home exercise program Short Term Goal (STG) Pt to be independent and compliant with an appropriate HEP STG Duration 01/13/25 Three Impairment Decreased left ankle AROM, especially DF with knee extended (-4?) Impairment . Payroll Associate Goal (LTG) Pt to demonstrate active ankle DF with knee extended to at least 5? in order to demonstrate improvement in functional ankle mobility and strength s/p surgical revision . LTG Duration 03/13/25 Assessment Summary Assessment Nicanor presents without boot following clearance from surgeon yesterday and with L ankle brace donned, and gait training initiated with ambulation without assistive device. Pt requires cues for heel strike, push off, increased stance time on LLE, and reciprocal arm swing, and limited ankle ROM noted in all planes. Mild swelling noted inferior to L malleoli, and pt educated on elevation above heart. She is educated on donning ankle brace appropriately. HEP reviewed and added to HEP: ankle circles, alphabet- HO given. Pt requires cues for full ROM and limiting knee involvement but self-awareness and performance improves with cueing and repetition. Ice offered and declined due to cold intolerance. Physical Therapy Plan Frequency and Duration Frequency of Treatment 2x/Week Plan of Care Start Date 12/13/24 Plan of Care End Date 03/13/25 Therapeutic Interventions Therapeutic Interventions Balance Training,Gait Training ,Home Exercise Program,Joint Mobilizations,Manual Therapy, Neuromuscular Re-education, Patient/Caregiver Education, Self-Care/Home Management,Soft Tissue Mobilization, Therapeutic Activities, Therapeutic Exercises Modalities Cold Pack/Ice Massage,Hot Packs Next Visit Focus/Plan Next Note Type Treatment Note Next Visit Plan Ankle stretching and strengthening, progress weight bearing exercises when cleared
--- NOTE | 2025-01-02 11:44 | PT.OTN ---
Current Diagnoses Other chronic pain (01/02/25) Pain in left ankle and joints of left foot (01/02/25) Displaced bimalleolar fracture of left lower leg, subsequent encounter for closed fracture with malunion (01/02/25) Sprain of tibiofibular ligament of left ankle, sequela (01/02/25) Pain due to internal orthopedic prosthetic devices, implants and grafts, initial encounter (01/02/25) Physical Therapy Treatment Note PT-OP-A Visit Information Start: 12/13/24 14:27 Freq: Status: Active Protocol: Document 12/29/24 10:47 NBM (Rec: 12/29/24 12:40 NBM [id number]) Out-Patient Physical Therapy Visit Information Visit Information Visit Type Treatment Note Visit Start Time 10:47 Visit Stop Time 11:30 Visit Number 3 Number of ADVERTISING COPY WRITER Visits 1 Evaluation Information Evaluation Date 12/13/24 Precautions Precautions *pt reports cold intolerance* PT-OP-B Current Condition Start: 12/13/24 14:27 Freq: Status: Active Protocol: Document 12/13/24 13:45 DCW (Rec: 12/14/24 14:13 DCW [id number]) Current Condition History of Current Condition Onset Date 13 year history Current Complaints Post-surgical left ankle pain/ stiffness History of Current Condition Pt is a 44 year old female presenting two months s/p revision of hardware 13 years after original ankle injury. Pt reports originally fractured tib/fib 13 years ago slipping on ice, and at the time, underwent surgical repair. Ankle has continued to bother her since then, after recent imaging, was told that her hardware was coming loose, and the wrong screws may have been used, and a revision was needed. Pt underwent revision two months ago, and was non-weight bearing until one week ago, now cleared to ambulate in a walking boot. Pt admits walking around [place] on left leg has started to mess up my right knee. Pt in general very hyper mobile, has resulted inn multiple injuries to both ankles, knees , and hips. Pt notes she will likely need a revision of the hardware in her right ankle sometime next year. Has follow -up with surgeon in two weeks, is hoping for more clearance for weight-bearing. So far, has largely been doing ankle mobility/stretching at home. 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 PT-OP-C Subjective Start: 12/13/24 14:27 Freq: Status: Active Protocol: Document 12/29/24 10:47 NBM (Rec: 12/29/24 12:40 NBM [id number]) OP-PT Subjective Patient Comments Patient Comments Nicanor reports cleared for weightbearing by surgeon yesterday and given heel lock brace for L ankle.R knee has been bothering her more, she thinks from weather and also L ankle compensation, and also due for next round of hyoloraunic acid shots in a couple months. Pain R knee 3-4 /10, L ankle 4-5/10 but partially because of cold weather and brace too tight, and R ankle 0/10. PT-OP-F Manual Assessment Start: 12/13/24 14:27 Freq: Status: Active Protocol: Document 12/13/24 13:45 DCW (Rec: 12/14/24 14:13 DCW [id number]) Manual Assessments Soft Tissue Assessment Soft Tissue Mobility Assessment Mild edema along inferior aspect of both L malleoli PT-OP-J Posture/Palpation/Skin Start: 12/14/24 14:13 Freq: Status: Active Protocol: Document 12/13/24 13:45 DCW (Rec: 12/14/24 14:28 DCW [id number]) Skin Assessment Circumference Measurement Figure-8 Location Left ankle Measurement (Centimeters) 52.4 Comments Right ankle Figure-8 = 51cm PT-OP-K Range of Motion Start: 12/13/24 14:27 Freq: Status: Active Protocol: Document 12/13/24 13:45 DCW (Rec: 12/14/24 14:13 DCW [id number]) Ankle and Foot Goniometric Range of Motion Ankle and Foot Right Active Testing Position Sitting Dorsiflexion with Knee Flexed 10 Dorsiflexion with Knee Extended 0 Plantarflexion 50 Inversion 50 Eversion 25 Left Passive Testing Position Sitting Dorsiflexion with Knee Flexed 4 Dorsiflexion with Knee Extended 0 Plantarflexion 50 Inversion 25 Eversion 20 Left Active Testing Position Sitting Dorsiflexion with Knee Flexed 8 Plantarflexion 46 Inversion 20 Eversion 12 Comments DF with knee extended measured at -4? PT-OP-M Strength Start: 12/13/24 14:27 Freq: Status: Active Protocol: Document 12/13/24 13:45 DCW (Rec: 12/14/24 14:13 DCW [id number]) Ankle/Foot Strength Ankle and Foot Manual Muscle Testing Right Dorsiflexion (L4) 4+ Good+ Plantarflexion (S1) 4+ Good+ Inversion 4+ Good+ Eversion (S1) 4+ Good+ Left Dorsiflexion (L4) 3+ Fair+ Plantarflexion (S1) 3+ Fair+ Inversion 3+ Fair+ Eversion (S1) 3+ Fair+ PT-OP-Q Treatments Start: 12/13/24 14:27 Freq: Status: Active Protocol: Document 12/29/24 10:47 NBM (Rec: 12/29/24 12:40 [facility] [id number]) Therapeutic Exercises Sitting Exercises Alphabet Sitting Exercise Name 1.CW/CCW 2.writing ABC's - added to HEP Side left Comments cues for ankle only, no knee involvement Intrinsic foot Sitting Exercise Name [place] pick-up, towel scrunch, short foot Side left Ankle Flexion Sitting Exercise Name 4-way ankle flexion Side left Resistance Lv 1 Gait Training Gait Activity Ambulation Device Used L ankle brace heel lock Level of Assistance SBA Surface firm Distance/Duration 4x15 ft Treatment Focus normalizing gait mechanics Comments Pt presents without walking boot cleared for fool weightbearing and requires cues for heel strike, push off , increased stance time on LLE , and reciprocal arm swing. Limited ankle ROM noted in all planes. Manual Therapy Treatment Consent Patient gave verbal consent for manual Yes treatment Joint Mobilizations Ankle Joint Left Ankle Direction P<->A PT-OP-T Assessment and Plan Start: 12/13/24 14:27 Freq: Status: Active Protocol: Document 12/29/24 10:47 NBM (Rec: 12/29/24 12:40 [facility] [id number]) Physical Therapy Assessment Impairments Impairments Activity Tolerance,Balance, Functional Activities, Functional Mobility,Gait,Pain, ROM,Soft Tissue Mobility, Strength Goals Two Impairment Pt unable to ambulate without walking boot Smocking Machine Operator Goal (LTG) Pt to progress through post-op precautions to return to WNL gait pattern without walking boot 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 Limited ankle ROM noted in all planes. LTG Duration 03/14/25 One Impairment Pt does not have an appropriate home exercise program Short Term Goal (STG) Pt to be independent and compliant with an appropriate HEP STG Duration 01/13/25 Three Impairment Decreased left ankle AROM, especially DF with knee extended (-4?) Impairment . Smocking Machine Operator Goal (LTG) Pt to demonstrate active ankle DF with knee extended to at least 5? in order to demonstrate improvement in functional ankle mobility and strength s/p surgical revision . LTG Duration 03/13/25 Assessment Summary Assessment Nicanor presents without boot following clearance from surgeon yesterday and with L ankle brace donned, and gait training initiated with ambulation without assistive device. Pt requires cues for heel strike, push off, increased stance time on LLE, and reciprocal arm swing, and limited ankle ROM noted in all planes. Mild swelling noted inferior to L malleoli, and pt educated on elevation above heart. She is educated on donning ankle brace appropriately. HEP reviewed and added to HEP: ankle circles, alphabet- HO given. Pt requires cues for full ROM and limiting knee involvement but self-awareness and performance improves with cueing and repetition. Ice offered and declined due to cold intolerance. Physical Therapy Plan Frequency and Duration Frequency of Treatment 2x/Week Plan of Care Start Date 12/13/24 Plan of Care End Date 03/13/25 Therapeutic Interventions Therapeutic Interventions Balance Training,Gait Training ,Home Exercise Program,Joint Mobilizations,Manual Therapy, Neuromuscular Re-education, Patient/Caregiver Education, Self-Care/Home Management,Soft Tissue Mobilization, Therapeutic Activities, Therapeutic Exercises Modalities Cold Pack/Ice Massage,Hot Packs Next Visit Focus/Plan Next Note Type Treatment Note Next Visit Plan Ankle stretching and strengthening, progress weight bearing exercises when cleared
--- NOTE | 2025-01-02 12:35 | PT.OTN ---
Current Diagnoses Other chronic pain (01/02/25) Pain in left ankle and joints of left foot (01/02/25) Displaced bimalleolar fracture of left lower leg, subsequent encounter for closed fracture with malunion (01/02/25) Sprain of tibiofibular ligament of left ankle, sequela (01/02/25) Pain due to internal orthopedic prosthetic devices, implants and grafts, initial encounter (01/02/25) Physical Therapy Treatment Note PT-OP-A Visit Information Start: 12/13/24 14:27 Freq: Status: Active Protocol: Document 01/02/25 11:45 NBM (Rec: 01/02/25 12:34 NBM [id number]) Out-Patient Physical Therapy Visit Information Visit Information Visit Type Treatment Note Visit Note Pt late Visit Start Time 11:41 Visit Stop Time 12:15 Visit Number 4 Number of POOL FINISHER Visits 2 Evaluation Information Evaluation Date 12/13/24 Precautions Precautions *pt reports cold intolerance* PT-OP-B Current Condition Start: 12/13/24 14:27 Freq: Status: Active Protocol: Document 12/13/24 13:45 DCW (Rec: 12/14/24 14:13 DCW [id number]) Current Condition History of Current Condition Onset Date 13 year history Current Complaints Post-surgical left ankle pain/ stiffness History of Current Condition Pt is a 44 year old female presenting two months s/p revision of hardware 13 years after original ankle injury. Pt reports originally fractured tib/fib 13 years ago slipping on ice, and at the time, underwent surgical repair. Ankle has continued to bother her since then, after recent imaging, was told that her hardware was coming loose, and the wrong screws may have been used, and a revision was needed. Pt underwent revision two months ago, and was non-weight bearing until one week ago, now cleared to ambulate in a walking boot. Pt admits walking around [place] on left leg has started to mess up my right knee. Pt in general very hyper mobile, has resulted inn multiple injuries to both ankles, knees , and hips. Pt notes she will likely need a revision of the hardware in her right ankle sometime next year. Has follow -up with surgeon in two weeks, is hoping for more clearance for weight-bearing. So far, has largely been doing ankle mobility/stretching at home. 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 PT-OP-C Subjective Start: 12/13/24 14:27 Freq: Status: Active Protocol: Document 01/02/25 11:45 NBM (Rec: 01/02/25 12:34 NBM [id number]) OP-PT Subjective Patient Comments Patient Comments Nicanor reports she did ex's as able. She walked here in the snow and her R knee is generally hurting more than her L ankle. She did a warm bath this morning which she thinks helps her ankle. PT-OP-F Manual Assessment Start: 12/13/24 14:27 Freq: Status: Active Protocol: Document 12/13/24 13:45 DCW (Rec: 12/14/24 14:13 DCW [id number]) Manual Assessments Soft Tissue Assessment Soft Tissue Mobility Assessment Mild edema along inferior aspect of both L malleoli PT-OP-J Posture/Palpation/Skin Start: 12/14/24 14:13 Freq: Status: Active Protocol: Document 12/13/24 13:45 DCW (Rec: 12/14/24 14:28 DCW [id number]) Skin Assessment Circumference Measurement Figure-8 Location Left ankle Measurement (Centimeters) 52.4 Comments Right ankle Figure-8 = 51cm PT-OP-K Range of Motion Start: 12/13/24 14:27 Freq: Status: Active Protocol: Document 12/13/24 13:45 DCW (Rec: 12/14/24 14:13 DCW [id number]) Ankle and Foot Goniometric Range of Motion Ankle and Foot Right Active Testing Position Sitting Dorsiflexion with Knee Flexed 10 Dorsiflexion with Knee Extended 0 Plantarflexion 50 Inversion 50 Eversion 25 Left Passive Testing Position Sitting Dorsiflexion with Knee Flexed 4 Dorsiflexion with Knee Extended 0 Plantarflexion 50 Inversion 25 Eversion 20 Left Active Testing Position Sitting Dorsiflexion with Knee Flexed 8 Plantarflexion 46 Inversion 20 Eversion 12 Comments DF with knee extended measured at -4? PT-OP-M Strength Start: 12/13/24 14:27 Freq: Status: Active Protocol: Document 12/13/24 13:45 DCW (Rec: 12/14/24 14:13 [facility] [id number]) Ankle/Foot Strength Ankle and Foot Manual Muscle Testing Right Dorsiflexion (L4) 4+ Good+ Plantarflexion (S1) 4+ Good+ Inversion 4+ Good+ Eversion (S1) 4+ Good+ Left Dorsiflexion (L4) 3+ Fair+ Plantarflexion (S1) 3+ Fair+ Inversion 3+ Fair+ Eversion (S1) 3+ Fair+ PT-OP-Q Treatments Start: 12/13/24 14:27 Freq: Status: Active Protocol: Document 01/02/25 11:45 NB (Rec: 01/02/25 12:34 [facility] [id number]) Therapeutic Exercises Sitting Exercises calf stretch Sitting Exercise Name 1. Long sitting 2. seated in chair (added to HEP) Side left Equipment Used c/ towel Reps/Minutes 2x60 Comments positive feedback response Alphabet Sitting Exercise Name 1.CW/CCW 2.writing ABC's - HEP review Side left Comments cues for ankle only, no knee involvement Intrinsic foot Sitting Exercise Name [place] pick-up, towel scrunch, short foot Side left Comments max cues for short foot Ankle Flexion Sitting Exercise Name 4-way ankle flexion Side left Resistance Lv 1 Comments verbal review d/t time Gait Training Gait Activity Ambulation Device Used L ankle brace donned Level of Assistance SBA Surface firm Distance/Duration waiting room<>clinic Treatment Focus normalizing gait mechanics Comments Improved DF following manual therapy. Manual Therapy Treatment Consent Patient gave verbal consent for manual Yes treatment Soft Tissue Mobilization L calf Body Location Gastroc, Soleus, Achilles tenon Mobilization Type Cross-Friction,Rolling, Strumming,Other Intensity/Depth Moderate Body Position Sitting, prone Comments w/ FM manual stretch to gastroc and soleus. 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 Limited ankle ROM noted in all planes. LTG Duration 03/14/25 One Impairment Pt does not have an appropriate home exercise program Short Term Goal (STG) Pt to be independent and compliant with an appropriate HEP STG Duration 01/13/25 Three Impairment Decreased left ankle AROM, especially DF with knee extended (-4?) Impairment . Medical Transcription Radiology Goal (LTG) Pt to demonstrate active ankle DF with knee extended to at least 5? in order to demonstrate improvement in functional ankle mobility and strength s/p surgical revision . LTG Duration 03/13/25 Assessment Summary Assessment Short session due to pt late. Nicanor demonstrates improved L dorsiflexion with ambulation following manual therapy. She has antalgic gait reporting R knee pain 4/10 after walking to session 7 minutes, pain unchanged throughout session, but reports L ankle stiffness improves and L dorsiflexion observably improves following manual therapy. 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 Physical Therapy Plan Frequency and Duration Frequency of Treatment 2x/Week Plan of Care Start Date 12/13/24 Plan of Care End Date 03/13/25 Therapeutic Interventions Therapeutic Interventions Balance Training,Gait Training ,Home Exercise Program,Joint Mobilizations,Manual Therapy, Neuromuscular Re-education, Patient/Caregiver Education, Self-Care/Home Management,Soft Tissue Mobilization, Therapeutic Activities, Therapeutic Exercises Modalities Cold Pack/Ice Massage,Hot Packs Next Visit Focus/Plan Next Note Type Treatment Note Next Visit Plan Ankle stretching and strengthening, progress weight bearing exercises when cleared
--- NOTE | 2025-01-16 14:31 | PT.OTN ---
Current Diagnoses Other chronic pain (01/16/25) Pain in left ankle and joints of left foot (01/16/25) Displaced bimalleolar fracture of left lower leg, subsequent encounter for closed fracture with malunion (01/16/25) Sprain of tibiofibular ligament of left ankle, sequela (01/16/25) Pain due to internal orthopedic prosthetic devices, implants and grafts, initial encounter (01/16/25) Physical Therapy Treatment Note PT-OP-A Visit Information Start: 12/13/24 14:27 Freq: Status: Active Protocol: Document 01/16/25 13:45 DCW (Rec: 01/16/25 14:31 DCW [id number]) Out-Patient Physical Therapy Visit Information Visit Information Visit Type Treatment Note Visit Start Time 13:45 Visit Stop Time 14:30 Visit Number 5 Number of CRM BUSINESS ANALYST Visits 0 Evaluation Information Evaluation Date 12/13/24 PT-OP-B Current Condition Start: 12/13/24 14:27 Freq: Status: Active Protocol: Document 12/13/24 13:45 DCW (Rec: 12/14/24 14:13 DCW [id number]) Current Condition History of Current Condition Onset Date 13 year history Current Complaints Post-surgical left ankle pain/ stiffness History of Current Condition Pt is a 44 year old female presenting two months s/p revision of hardware 13 years after original ankle injury. Pt reports originally fractured tib/fib 13 years ago slipping on ice, and at the time, underwent surgical repair. Ankle has continued to bother her since then, after recent imaging, was told that her hardware was coming loose, and the wrong screws may have been used, and a revision was needed. Pt underwent revision two months ago, and was non-weight bearing until one week ago, now cleared to ambulate in a walking boot. Pt admits walking around [place] on left leg has started to mess up my right knee. Pt in general very hyper mobile, has resulted inn multiple injuries to both ankles, knees , and hips. Pt notes she will likely need a revision of the hardware in her right ankle sometime next year. Has follow -up with surgeon in two weeks, is hoping for more clearance for weight-bearing. So far, has largely been doing ankle mobility/stretching at home. 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 PT-OP-C Subjective Start: 12/13/24 14:27 Freq: Status: Active Protocol: Document 01/16/25 13:45 DCW (Rec: 01/16/25 14:31 DCW [id number]) OP-PT Subjective Patient Comments Patient Comments [place], it seems to be more stable, I'm able to be on it a little more. PT-OP-F Manual Assessment Start: 12/13/24 14:27 Freq: Status: Active Protocol: Document 12/13/24 13:45 DCW (Rec: 12/14/24 14:13 DCW [id number]) Manual Assessments Soft Tissue Assessment Soft Tissue Mobility Assessment Mild edema along inferior aspect of both L malleoli PT-OP-J Posture/Palpation/Skin Start: 12/14/24 14:13 Freq: Status: Active Protocol: Document 12/13/24 13:45 DCW (Rec: 12/14/24 14:28 DCW [id number]) Skin Assessment Circumference Measurement Figure-8 Location Left ankle Measurement (Centimeters) 52.4 Comments Right ankle Figure-8 = 51cm PT-OP-K Range of Motion Start: 12/13/24 14:27 Freq: Status: Active Protocol: Document 12/13/24 13:45 DCW (Rec: 12/14/24 14:13 DCW [id number]) Ankle and Foot Goniometric Range of Motion Ankle and Foot Right Active Testing Position Sitting Dorsiflexion with Knee Flexed 10 Dorsiflexion with Knee Extended 0 Plantarflexion 50 Inversion 50 Eversion 25 Left Passive Testing Position Sitting Dorsiflexion with Knee Flexed 4 Dorsiflexion with Knee Extended 0 Plantarflexion 50 Inversion 25 Eversion 20 Left Active Testing Position Sitting Dorsiflexion with Knee Flexed 8 Plantarflexion 46 Inversion 20 Eversion 12 Comments DF with knee extended measured at -4? PT-OP-M Strength Start: 12/13/24 14:27 Freq: Status: Active Protocol: Document 12/13/24 13:45 DCW (Rec: 12/14/24 14:13 DCW [id number]) Ankle/Foot Strength Ankle and Foot Manual Muscle Testing Right Dorsiflexion (L4) 4+ Good+ Plantarflexion (S1) 4+ Good+ Inversion 4+ Good+ Eversion (S1) 4+ Good+ Left Dorsiflexion (L4) 3+ Fair+ Plantarflexion (S1) 3+ Fair+ Inversion 3+ Fair+ Eversion (S1) 3+ Fair+ PT-OP-Q Treatments Start: 12/13/24 14:27 Freq: Status: Active Protocol: Document 01/16/25 13:45 DCW (Rec: 01/16/25 14:31 DCW [id number]) Gym Equipment Shuttle Recovery Bilateral Heel Raises Resistance 37# Reps/Time x15 Unilateral Squats Resistance 37# Shuttle Recovery Platform Stable Reps/Time x15 Bilateral Squats Resistance 75# Shuttle Recovery Platform Stable Reps/Time x15 Therapeutic Exercises Other Exercises Step-ups Other Exercise Name Step-ups/downs Side left Equipment Used 4 step->6 step Gait Training Gait Activity Stairs Description Ascend/descend stairs Device Used B Rail Level of Assistance SBA Comments [id number] Manual Therapy Treatment Consent Patient gave verbal consent for manual Yes treatment Soft Tissue Mobilization L calf Body Location Gastroc, Soleus, Achilles tenon Mobilization Type Cross-Friction,Rolling, Strumming,Other Intensity/Depth Moderate Body Position Sitting Comments manual stretch to gastroc and soleus. Joint Mobilizations Ankle Joint Left Ankle Direction P<->A Neuro Re-Education Treatment Balance Activities Tilt Board Details Lateral weight shift Lateral Movements Details Lateral ladder drills Comments VCs for slight increase in speed SLS Details SLS Surface Firm, Blue foam PT-OP-T Assessment and Plan Start: 12/13/24 14:27 Freq: Status: Active Protocol: Document 01/16/25 13:45 DCW (Rec: 01/16/25 14:31 DCW [id number]) Physical Therapy Assessment Impairments Impairments Activity Tolerance,Balance, Functional Activities, Functional Mobility,Gait,Pain, ROM,Soft Tissue Mobility, Strength Goals Two Impairment Pt unable to ambulate without walking boot [employer] Heater Goal (LTG) Pt to progress through post-op precautions to return to WNL gait pattern without walking boot 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 Limited ankle ROM noted in all planes. LTG Duration 03/14/25 One Impairment Pt does not have an appropriate home exercise program Short Term Goal (STG) Pt to be independent and compliant with an appropriate HEP STG Duration 01/13/25 Three Impairment Decreased left ankle AROM, especially DF with knee extended (-4?) Impairment . [employer] Heater Goal (LTG) Pt to demonstrate active ankle DF with knee extended to at least 5? in order to demonstrate improvement in functional ankle mobility and strength s/p surgical revision . LTG Duration 03/13/25 Assessment Summary Assessment Pt showing good progress overall, gait normalizing, demonstrated ability to perform [id number] stairs today, although more limited by right knee stiffness than left ankle. Pt should benefit from continued work on gait, balance, joint stability, and strengthening in order to transition to decreasing reliance on brace and return to normal work. Did discuss attempting to return to partial duty work if pt is able to take seated rest breaks as needed, pt feels that this shouldn't be an issue. Physical Therapy Plan Frequency and Duration Frequency of Treatment 2x/Week Plan of Care Start Date 12/13/24 Plan of Care End Date 03/13/25 Therapeutic Interventions Therapeutic Interventions Balance Training,Gait Training ,Home Exercise Program,Joint Mobilizations,Manual Therapy, Neuromuscular Re-education, Patient/Caregiver Education, Self-Care/Home Management,Soft Tissue Mobilization, Therapeutic Activities, Therapeutic Exercises Modalities Cold Pack/Ice Massage,Hot Packs Next Visit Focus/Plan Next Note Type Treatment Note Next Visit Plan Ankle stretching and strengthening, progress weight bearing exercises when cleared
--- NOTE | 2025-01-19 15:11 | PT.OTN ---
Current Diagnoses Other chronic pain (01/19/25) Pain in left ankle and joints of left foot (01/19/25) Displaced bimalleolar fracture of left lower leg, subsequent encounter for closed fracture with malunion (01/19/25) Sprain of tibiofibular ligament of left ankle, sequela (01/19/25) Pain due to internal orthopedic prosthetic devices, implants and grafts, initial encounter (01/19/25) Physical Therapy Treatment Note PT-OP-A Visit Information Start: 12/13/24 14:27 Freq: Status: Active Protocol: Document 01/19/25 13:59 NBM (Rec: 01/19/25 15:11 NBM [id number]) Out-Patient Physical Therapy Visit Information Visit Information Visit Type Treatment Note Visit Start Time 13:55 Visit Stop Time 14:35 Visit Number 6 Number of HEPATOLOGIST Visits 1 PT-OP-B Current Condition Start: 12/13/24 14:27 Freq: Status: Active Protocol: Document 12/13/24 13:45 DCW (Rec: 12/14/24 14:13 DCW [id number]) Current Condition History of Current Condition Onset Date 13 year history Current Complaints Post-surgical left ankle pain/ stiffness History of Current Condition Pt is a 44 year old female presenting two months s/p revision of hardware 13 years after original ankle injury. Pt reports originally fractured tib/fib 13 years ago slipping on ice, and at the time, underwent surgical repair. Ankle has continued to bother her since then, after recent imaging, was told that her hardware was coming loose, and the wrong screws may have been used, and a revision was needed. Pt underwent revision two months ago, and was non-weight bearing until one week ago, now cleared to ambulate in a walking boot. Pt admits walking around [place] on left leg has started to mess up my right knee. Pt in general very hyper mobile, has resulted inn multiple injuries to both ankles, knees , and hips. Pt notes she will likely need a revision of the hardware in her right ankle sometime next year. Has follow -up with surgeon in two weeks, is hoping for more clearance for weight-bearing. So far, has largely been doing ankle mobility/stretching at home. 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 PT-OP-C Subjective Start: 12/13/24 14:27 Freq: Status: Active Protocol: Document 01/19/25 13:59 NBM (Rec: 01/19/25 15:11 NBM [id number]) OP-PT Subjective Patient Comments Patient Comments Nicanor reports R knee isn't as bad as it's been, still stiff and still generally hurting more than L ankle. She thinks the weather aggravates the stiffness which causes more problems. She walked to PT today. PT-OP-F Manual Assessment Start: 12/13/24 14:27 Freq: Status: Active Protocol: Document 12/13/24 13:45 DCW (Rec: 12/14/24 14:13 DCW [id number]) Manual Assessments Soft Tissue Assessment Soft Tissue Mobility Assessment Mild edema along inferior aspect of both L malleoli PT-OP-J Posture/Palpation/Skin Start: 12/14/24 14:13 Freq: Status: Active Protocol: Document 12/13/24 13:45 DCW (Rec: 12/14/24 14:28 DCW [id number]) Skin Assessment Circumference Measurement Figure-8 Location Left ankle Measurement (Centimeters) 52.4 Comments Right ankle Figure-8 = 51cm PT-OP-K Range of Motion Start: 12/13/24 14:27 Freq: Status: Active Protocol: Document 12/13/24 13:45 DCW (Rec: 12/14/24 14:13 DCW [id number]) Ankle and Foot Goniometric Range of Motion Ankle and Foot Right Active Testing Position Sitting Dorsiflexion with Knee Flexed 10 Dorsiflexion with Knee Extended 0 Plantarflexion 50 Inversion 50 Eversion 25 Left Passive Testing Position Sitting Dorsiflexion with Knee Flexed 4 Dorsiflexion with Knee Extended 0 Plantarflexion 50 Inversion 25 Eversion 20 Left Active Testing Position Sitting Dorsiflexion with Knee Flexed 8 Plantarflexion 46 Inversion 20 Eversion 12 Comments DF with knee extended measured at -4? PT-OP-M Strength Start: 12/13/24 14:27 Freq: Status: Active Protocol: Document 12/13/24 13:45 DCW (Rec: 12/14/24 14:13 DCW [id number]) Ankle/Foot Strength Ankle and Foot Manual Muscle Testing Right Dorsiflexion (L4) 4+ Good+ Plantarflexion (S1) 4+ Good+ Inversion 4+ Good+ Eversion (S1) 4+ Good+ Left Dorsiflexion (L4) 3+ Fair+ Plantarflexion (S1) 3+ Fair+ Inversion 3+ Fair+ Eversion (S1) 3+ Fair+ PT-OP-Q Treatments Start: 12/13/24 14:27 Freq: Status: Active Protocol: Document 01/19/25 13:59 NBM (Rec: 01/19/25 15:11 [facility] [id number]) Therapeutic Exercises Standing Exercises self-mobilization Standing Exercise Name ankle self-mobilization 1. floor 2. LLE on 4 step Side left Resistance Lvl 5 Tb at talus (looped around ankles) Reps/Minutes x5 ea Comments added to HEP SL squat Standing Exercise Name Step tap - added to HEP Equipment Used 4 steps, rails for balance prn Comments tactile cue for LE alignment, hip hinge, eccentric control Other Exercises Step-ups Other Exercise Name Step-ups/downs Side bilateral Equipment Used 6 step Comments LLE leading, then RLE (R knee stiffness reported) Gait Training Gait Activity Stairs Description Ascend/descend stairs Device Used B Rail Level of Assistance SBA Comments [id number] vc for descending stairs reciprocally for RLE alignment and eccentric control Manual Therapy Treatment Soft Tissue Mobilization L calf Body Location Uri Gastroc, Soleus, Achilles tenon Mobilization Type Cross-Friction,Rolling,Other Intensity/Depth Moderate Body Position Supine Comments manual stretch to gastroc and soleus. Cross-friction to Achilles with functional movement. Joint Mobilizations Ankle Joint Left Ankle Direction P<->A Body Position Standing Reps/Duration x5 Comments cues for knee alignment Neuro Re-Education Treatment Balance Activities Lateral Movements Details Lateral ladder drills Equipment 5>6 6 hurdles Comments VCs for slight increase in speed SLS Details SLS Surface Firm, Black therapad Reps/Duration 30s EO Comments Black therapad too challenging . 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 Limited ankle ROM noted in all planes. LTG Duration 03/14/25 One Impairment Pt does not have an appropriate home exercise program Short Term Goal (STG) Pt to be independent and compliant with an appropriate HEP STG Duration 01/13/25 Three Impairment Decreased left ankle AROM, especially DF with knee extended (-4?) Impairment . Vacuum Drum Drier Operator Goal (LTG) Pt to demonstrate active ankle DF with knee extended to at least 5? in order to demonstrate improvement in functional ankle mobility and strength s/p surgical revision . LTG Duration 03/13/25 Assessment Summary Assessment Candle clips toes x2 L and x1 R with 6 step ups, but demos improved dorsiflexion with foot clearance performing step ups on 6 steps following manual stretching to bilateral calves and soleus. She requires cues for descending stairs reciprocally for RLE alignment and eccentric control. She can perform SL stance bilaterally 30 sec eyes open but LLE on black airpad is too challenging. Added to HEP: Single leg 4 taps and Ankle self-mobilization for ankle stiffness with Lvl 5 Theraband placed at talus - Lvl 5 Tb given, no HO given. Physical Therapy Plan Frequency and Duration Frequency of Treatment 2x/Week Plan of Care Start Date 12/13/24 Plan of Care End Date 03/13/25 Therapeutic Interventions Therapeutic Interventions Balance Training,Gait Training ,Home Exercise Program,Joint Mobilizations,Manual Therapy, Neuromuscular Re-education, Patient/Caregiver Education, Self-Care/Home Management,Soft Tissue Mobilization, Therapeutic Activities, Therapeutic Exercises Modalities Cold Pack/Ice Massage,Hot Packs Next Visit Focus/Plan Next Note Type Treatment Note Next Visit Plan Review new HEP SL squat 4 step taps and ankle self-mob. Progress balance prn. POC: Ankle stretching and strengthening, progress weight bearing exercises when cleared
--- NOTE | 2025-01-23 12:32 | PT.OTN ---
Current Diagnoses Other chronic pain (01/23/25) Pain in left ankle and joints of left foot (01/23/25) Displaced bimalleolar fracture of left lower leg, subsequent encounter for closed fracture with malunion (01/23/25) Sprain of tibiofibular ligament of left ankle, sequela (01/23/25) Pain due to internal orthopedic prosthetic devices, implants and grafts, initial encounter (01/23/25) Physical Therapy Treatment Note PT-OP-A Visit Information Start: 12/13/24 14:27 Freq: Status: Active Protocol: Document 01/23/25 11:39 NBM (Rec: 01/23/25 12:32 NBM [id number]) Out-Patient Physical Therapy Visit Information Visit Information Visit Type Treatment Note Visit Start Time 11:35 Visit Stop Time 12:20 Visit Number 7 Number of HARNESS RACING HANDICAPPER Visits 2 Evaluation Information Evaluation Date 12/13/24 PT-OP-B Current Condition Start: 12/13/24 14:27 Freq: Status: Active Protocol: Document 12/13/24 13:45 DCW (Rec: 12/14/24 14:13 DCW [id number]) Current Condition History of Current Condition Onset Date 13 year history Current Complaints Post-surgical left ankle pain/ stiffness History of Current Condition Pt is a 44 year old female presenting two months s/p revision of hardware 13 years after original ankle injury. Pt reports originally fractured tib/fib 13 years ago slipping on ice, and at the time, underwent surgical repair. Ankle has continued to bother her since then, after recent imaging, was told that her hardware was coming loose, and the wrong screws may have been used, and a revision was needed. Pt underwent revision two months ago, and was non-weight bearing until one week ago, now cleared to ambulate in a walking boot. Pt admits walking around [place] on left leg has started to mess up my right knee. Pt in general very hyper mobile, has resulted inn multiple injuries to both ankles, knees , and hips. Pt notes she will likely need a revision of the hardware in her right ankle sometime next year. Has follow -up with surgeon in two weeks, is hoping for more clearance for weight-bearing. So far, has largely been doing ankle mobility/stretching at home. 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 PT-OP-C Subjective Start: 12/13/24 14:27 Freq: Status: Active Protocol: Document 01/23/25 11:39 NBM (Rec: 01/23/25 12:32 NBM [id number]) OP-PT Subjective Patient Comments Patient Comments Nicanor reports R knee stiffness and a little sore, and L ankle is fine. Wearing a R knee and L ankle brace. 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 She doesn't have two days in a row of work and is slowly working back to more. She wasn't able to take warm bath yet today so plans to after PT to help knee stiffness. She has an appt with orthopedic doctor for knee on March 02, and is working on getting the hyolauronic acid shots authorized again. PT-OP-F Manual Assessment Start: 12/13/24 14:27 Freq: Status: Active Protocol: Document 12/13/24 13:45 DCW (Rec: 12/14/24 14:13 DCW [id number]) Manual Assessments Soft Tissue Assessment Soft Tissue Mobility Assessment Mild edema along inferior aspect of both L malleoli PT-OP-J Posture/Palpation/Skin Start: 12/14/24 14:13 Freq: Status: Active Protocol: Document 12/13/24 13:45 DCW (Rec: 12/14/24 14:28 DCW [id number]) Skin Assessment Circumference Measurement Figure-8 Location Left ankle Measurement (Centimeters) 52.4 Comments Right ankle Figure-8 = 51cm PT-OP-K Range of Motion Start: 12/13/24 14:27 Freq: Status: Active Protocol: Document 12/13/24 13:45 DCW (Rec: 12/14/24 14:13 DCW [id number]) Ankle and Foot Goniometric Range of Motion Ankle and Foot Right Active Testing Position Sitting Dorsiflexion with Knee Flexed 10 Dorsiflexion with Knee Extended 0 Plantarflexion 50 Inversion 50 Eversion 25 Left Passive Testing Position Sitting Dorsiflexion with Knee Flexed 4 Dorsiflexion with Knee Extended 0 Plantarflexion 50 Inversion 25 Eversion 20 Left Active Testing Position Sitting Dorsiflexion with Knee Flexed 8 Plantarflexion 46 Inversion 20 Eversion 12 Comments DF with knee extended measured at -4? PT-OP-M Strength Start: 12/13/24 14:27 Freq: Status: Active Protocol: Document 12/13/24 13:45 DCW (Rec: 12/14/24 14:13 DCW [id number]) Ankle/Foot Strength Ankle and Foot Manual Muscle Testing Right Dorsiflexion (L4) 4+ Good+ Plantarflexion (S1) 4+ Good+ Inversion 4+ Good+ Eversion (S1) 4+ Good+ Left Dorsiflexion (L4) 3+ Fair+ Plantarflexion (S1) 3+ Fair+ Inversion 3+ Fair+ Eversion (S1) 3+ Fair+ PT-OP-Q Treatments Start: 12/13/24 14:27 Freq: Status: Active Protocol: Document 01/23/25 11:39 NBM (Rec: 01/23/25 12:32 NBM [id number]) Gym Equipment Shuttle Recovery Bilateral Heel Raises Details Cues for knee ext. Resistance 37# Reps/Time x15 Unilateral Squats Resistance 37# Shuttle Recovery Platform Stable Reps/Time x15 Bilateral Squats Details cues to maintain LE alignment Resistance 75# Shuttle Recovery Platform Stable Reps/Time x15 Therapeutic Exercises Supine Exercises hamstring stretch Side bilateral Equipment Used on Shuttle Recovery, stable platform Reps/Minutes 60 Comments cues for painfree range calf stretch Side bilateral Resistance 37# Equipment Used Shuttle Recovery, stable platform Reps/Minutes 60 Comments cues for breath and painfree range Standing Exercises SL squat Standing Exercise Name Step tap - added to HEP Equipment Used 4 steps, rails for balance prn Comments tactile cue for LE alignment, hip hinge, eccentric control - more challengi Other Exercises Step-ups Other Exercise Name Step-ups/downs Side bilateral Equipment Used 6 step Comments LLE leading, then RLE (R knee stiffness reported) Neuro Re-Education Treatment Balance Activities SLS Details SLS Surface Firm, Black 2 foam Reps/Duration 30s EO/EC ea Comments RLE: 30s EO/EC stable and EO on foam wo finger touch LLE: 7s EO max today wo finger touch, consistent finger touch during 30s trials EO and EC. 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 Limited ankle ROM noted in all planes. LTG Duration 03/14/25 One Impairment Pt does not have an appropriate home exercise program Short Term Goal (STG) Pt to be independent and compliant with an appropriate HEP STG Duration 01/13/25 Three Impairment Decreased left ankle AROM, especially DF with knee extended (-4?) Impairment . [facility] Goal (LTG) Pt to demonstrate active ankle DF with knee extended to at least 5? in order to demonstrate improvement in functional ankle mobility and strength s/p surgical revision . LTG Duration 03/13/25 Assessment Summary Assessment Nicanor presents with more R knee stiffness today, likely secondary to starting work as server assistant yesterday 6 hours, and has R knee brace and L ankle brace donned. No pain in L ankle throughout session. She clips toes x1 on RLE w/ 6 step ups, which demos improvement from 01/19 session. SLS balance is challenged on LLE today w/ 7 second max without finger touch on firm surface; RLE demonstrates progress with 30s on stable and unstable surface Eyes open and 30s on stable surface Eyes closed without finger touch. 4 step downs are observably more challenging today for R knee unlocking and eccentric control with increased shaking in quads. She demos improved gait with less R knee stiffness end of session. Pt has appointment with orthopedic surgeon March 02 for R knee stiffness. Physical Therapy Plan Frequency and Duration Frequency of Treatment 2x/Week Plan of Care Start Date 12/13/24 Plan of Care End Date 03/13/25 Therapeutic Interventions Therapeutic Interventions Balance Training,Gait Training ,Home Exercise Program,Joint Mobilizations,Manual Therapy, Neuromuscular Re-education, Patient/Caregiver Education, Self-Care/Home Management,Soft Tissue Mobilization, Therapeutic Activities, Therapeutic Exercises Modalities Cold Pack/Ice Massage,Hot Packs Next Visit Focus/Plan Next Note Type Treatment Note Next Visit Plan Review new HEP SL squat 4 step taps and ankle self-mob. Consider Y reach cones vs slider. Progress balance prn. POC: Ankle stretching and strengthening, progress weight bearing exercises when cleared
--- NOTE | 2025-01-25 12:17 | PT.OTN ---
Current Diagnoses Other chronic pain (01/25/25) Pain in left ankle and joints of left foot (01/25/25) Displaced bimalleolar fracture of left lower leg, subsequent encounter for closed fracture with malunion (01/25/25) Sprain of tibiofibular ligament of left ankle, sequela (01/25/25) Pain due to internal orthopedic prosthetic devices, implants and grafts, initial encounter (01/25/25) Physical Therapy Treatment Note PT-OP-A Visit Information Start: 12/13/24 14:27 Freq: Status: Active Protocol: Document 01/25/25 11:30 DCW (Rec: 01/25/25 12:17 DCW [id number]) Out-Patient Physical Therapy Visit Information Visit Information Visit Type Treatment Note Visit Start Time 11:30 Visit Stop Time 12:15 Visit Number 8 Number of LAUNDRY PRESSER Visits 0 Evaluation Information Evaluation Date 12/13/24 PT-OP-B Current Condition Start: 12/13/24 14:27 Freq: Status: Active Protocol: Document 12/13/24 13:45 DCW (Rec: 12/14/24 14:13 DCW [id number]) Current Condition History of Current Condition Onset Date 13 year history Current Complaints Post-surgical left ankle pain/ stiffness History of Current Condition Pt is a 44 year old female presenting two months s/p revision of hardware 13 years after original ankle injury. Pt reports originally fractured tib/fib 13 years ago slipping on ice, and at the time, underwent surgical repair. Ankle has continued to bother her since then, after recent imaging, was told that her hardware was coming loose, and the wrong screws may have been used, and a revision was needed. Pt underwent revision two months ago, and was non-weight bearing until one week ago, now cleared to ambulate in a walking boot. Pt admits walking around [place] on left leg has started to mess up my right knee. Pt in general very hyper mobile, has resulted inn multiple injuries to both ankles, knees , and hips. Pt notes she will likely need a revision of the hardware in her right ankle sometime next year. Has follow -up with surgeon in two weeks, is hoping for more clearance for weight-bearing. So far, has largely been doing ankle mobility/stretching at home. 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 PT-OP-C Subjective Start: 12/13/24 14:27 Freq: Status: Active Protocol: Document 01/25/25 11:30 DCW (Rec: 01/25/25 12:17 DCW [id number]) OP-PT Subjective Patient Comments Patient Comments Pt reports work is going well overall, slowly returning to a more regular work schedule. Her right knee is a little stiff after her shift, but is better than when she first went back. Has a bit of difficulty with walking down hill. PT-OP-F Manual Assessment Start: 12/13/24 14:27 Freq: Status: Active Protocol: Document 12/13/24 13:45 DCW (Rec: 12/14/24 14:13 DCW [id number]) Manual Assessments Soft Tissue Assessment Soft Tissue Mobility Assessment Mild edema along inferior aspect of both L malleoli PT-OP-J Posture/Palpation/Skin Start: 12/14/24 14:13 Freq: Status: Active Protocol: Document 12/13/24 13:45 DCW (Rec: 12/14/24 14:28 DCW [id number]) Skin Assessment Circumference Measurement Figure-8 Location Left ankle Measurement (Centimeters) 52.4 Comments Right ankle Figure-8 = 51cm PT-OP-K Range of Motion Start: 12/13/24 14:27 Freq: Status: Active Protocol: Document 12/13/24 13:45 DCW (Rec: 12/14/24 14:13 DCW [id number]) Ankle and Foot Goniometric Range of Motion Ankle and Foot Right Active Testing Position Sitting Dorsiflexion with Knee Flexed 10 Dorsiflexion with Knee Extended 0 Plantarflexion 50 Inversion 50 Eversion 25 Left Passive Testing Position Sitting Dorsiflexion with Knee Flexed 4 Dorsiflexion with Knee Extended 0 Plantarflexion 50 Inversion 25 Eversion 20 Left Active Testing Position Sitting Dorsiflexion with Knee Flexed 8 Plantarflexion 46 Inversion 20 Eversion 12 Comments DF with knee extended measured at -4? PT-OP-M Strength Start: 12/13/24 14:27 Freq: Status: Active Protocol: Document 12/13/24 13:45 DCW (Rec: 12/14/24 14:13 DCW [id number]) Ankle/Foot Strength Ankle and Foot Manual Muscle Testing Right Dorsiflexion (L4) 4+ Good+ Plantarflexion (S1) 4+ Good+ Inversion 4+ Good+ Eversion (S1) 4+ Good+ Left Dorsiflexion (L4) 3+ Fair+ Plantarflexion (S1) 3+ Fair+ Inversion 3+ Fair+ Eversion (S1) 3+ Fair+ PT-OP-Q Treatments Start: 12/13/24 14:27 Freq: Status: Active Protocol: Document 01/25/25 11:30 DCW (Rec: 01/25/25 12:17 [facility] [id number]) Gym Equipment Shuttle Recovery Unilateral Squats Resistance 37# Shuttle Recovery Platform Stable Reps/Time x15 Bilateral Squats Details cues to maintain LE alignment Resistance 75# Shuttle Recovery Platform Stable Reps/Time x20 Therapeutic Exercises Other Exercises Step-ups Other Exercise Name Step-ups/downs Side bilateral Equipment Used 6 step Comments LLE leading, then RLE (R knee stiffness reported) Manual Therapy Treatment Soft Tissue Mobilization L calf Body Location Uri Gastroc, Soleus, Achilles tenon Mobilization Type Cross-Friction,Rolling, Strumming,Sustained Pressure Intensity/Depth Moderate Body Position Sitting Comments manual stretch to gastroc and soleus. Cross-friction to Achilles with functional movement. Joint Mobilizations Ankle Joint Left Ankle Direction P<->A, Inv/Ev Body Position Sitting Comments cues for knee alignment Neuro Re-Education Treatment Balance Activities BOSU Lunge Details BOSU Lunge Lateral Movements Details Lateral ladder drills Equipment 6 hurdles Comments VCs for slight increase in speed SLS Details SLS Surface Firm, Black 2 foam Reps/Duration 30s EO/EC ea PT-OP-T Assessment and Plan Start: 12/13/24 14:27 Freq: Status: Active Protocol: Document 01/25/25 11:30 DCW (Rec: 01/25/25 12:17 [facility] [id number]) Physical Therapy Assessment Goals Two Impairment Pt unable to ambulate without walking boot Airport Representative Goal (LTG) Pt to progress through post-op precautions to return to WNL gait pattern without walking boot in 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 Limited ankle ROM noted in all planes. LTG Duration 4/16/25 One Impairment Pt does not have an appropriate home exercise program Short Term Goal (STG) Pt to be independent and compliant with an appropriate HEP STG Duration 01/13/25 Three Impairment Decreased left ankle AROM, especially DF with knee extended (-4?) Impairment . Airport Representative Goal (LTG) Pt to demonstrate active ankle DF with knee extended to at least 5? in order to demonstrate improvement in functional ankle mobility and strength s/p surgical revision . LTG Duration 03/13/25 Assessment Summary Assessment Pt experienced sudden heel pain in between exercises, felt like it needed to pop, had trouble standing. After brief rest break, felt better. Otherwise tolerated well, continues to increase work activities. Physical Therapy Plan Frequency and Duration Frequency of Treatment 2x/Week Plan of Care Start Date 12/13/24 Plan of Care End Date 03/13/25 Therapeutic Interventions Therapeutic Interventions Balance Training,Gait Training ,Home Exercise Program,Joint Mobilizations,Manual Therapy, Neuromuscular Re-education, Patient/Caregiver Education, Self-Care/Home Management,Soft Tissue Mobilization, Therapeutic Activities, Therapeutic Exercises Modalities Cold Pack/Ice Massage,Hot Packs Next Visit Focus/Plan Next Note Type Treatment Note Next Visit Plan Review new HEP SL squat 4 step taps and ankle self-mob. Consider Y reach cones vs slider. Progress balance prn. POC: Ankle stretching and strengthening, progress weight bearing exercises when cleared
--- NOTE | 2025-01-31 16:43 | PT.OTN ---
Current Diagnoses Other chronic pain (01/31/25) Pain in left ankle and joints of left foot (01/31/25) Displaced bimalleolar fracture of left lower leg, subsequent encounter for closed fracture with malunion (01/31/25) Sprain of tibiofibular ligament of left ankle, sequela (01/31/25) Pain due to internal orthopedic prosthetic devices, implants and grafts, initial encounter (01/31/25) Physical Therapy Treatment Note PT-OP-A Visit Information Start: 12/13/24 14:27 Freq: Status: Active Protocol: Document 01/31/25 14:03 NBM (Rec: 01/31/25 14:40 NBM [id number]) Out-Patient Physical Therapy Visit Information Visit Information Visit Type Treatment Note Visit Start Time 13:58 Visit Stop Time 14:39 Visit Number 9 Number of CONTRACT CONSULTANT Visits 1 Evaluation Information Evaluation Date 12/13/24 Precautions Precautions *pt reports cold intolerance* PT-OP-B Current Condition Start: 12/13/24 14:27 Freq: Status: Active Protocol: Document 12/13/24 13:45 DCW (Rec: 12/14/24 14:13 DCW [id number]) Current Condition History of Current Condition Onset Date 13 year history Current Complaints Post-surgical left ankle pain/ stiffness History of Current Condition Pt is a 44 year old female presenting two months s/p revision of hardware 13 years after original ankle injury. Pt reports originally fractured tib/fib 13 years ago slipping on ice, and at the time, underwent surgical repair. Ankle has continued to bother her since then, after recent imaging, was told that her hardware was coming loose, and the wrong screws may have been used, and a revision was needed. Pt underwent revision two months ago, and was non-weight bearing until one week ago, now cleared to ambulate in a walking boot. Pt admits walking around [place] on left leg has started to mess up my right knee. Pt in general very hyper mobile, has resulted inn multiple injuries to both ankles, knees , and hips. Pt notes she will likely need a revision of the hardware in her right ankle sometime next year. Has follow -up with surgeon in two weeks, is hoping for more clearance for weight-bearing. So far, has largely been doing ankle mobility/stretching at home. 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 PT-OP-C Subjective Start: 12/13/24 14:27 Freq: Status: Active Protocol: Document 01/31/25 14:03 NBM (Rec: 01/31/25 14:40 NBM [id number]) OP-PT Subjective Patient Comments Patient Comments Nicanor reports she worked today and hit the back of her L ankle on something and it's been hurting. Her daughter hurt her R knee this morning climbing on top of her. Stretching ex's help her R knee at work. She sees tooth cutter this Wednesday and has an orthopedic MD appt on 03/02 re: hyolauronic acid shots, and it can take at least two more weeks for authorization. PT-OP-F Manual Assessment Start: 12/13/24 14:27 Freq: Status: Active Protocol: Document 12/13/24 13:45 DCW (Rec: 12/14/24 14:13 DCW [id number]) Manual Assessments Soft Tissue Assessment Soft Tissue Mobility Assessment Mild edema along inferior aspect of both L malleoli PT-OP-J Posture/Palpation/Skin Start: 12/14/24 14:13 Freq: Status: Active Protocol: Document 12/13/24 13:45 DCW (Rec: 12/14/24 14:28 DCW [id number]) Skin Assessment Circumference Measurement Figure-8 Location Left ankle Measurement (Centimeters) 52.4 Comments Right ankle Figure-8 = 51cm PT-OP-K Range of Motion Start: 12/13/24 14:27 Freq: Status: Active Protocol: Document 12/13/24 13:45 DCW (Rec: 12/14/24 14:13 DCW [id number]) Ankle and Foot Goniometric Range of Motion Ankle and Foot Right Active Testing Position Sitting Dorsiflexion with Knee Flexed 10 Dorsiflexion with Knee Extended 0 Plantarflexion 50 Inversion 50 Eversion 25 Left Passive Testing Position Sitting Dorsiflexion with Knee Flexed 4 Dorsiflexion with Knee Extended 0 Plantarflexion 50 Inversion 25 Eversion 20 Left Active Testing Position Sitting Dorsiflexion with Knee Flexed 8 Plantarflexion 46 Inversion 20 Eversion 12 Comments DF with knee extended measured at -4? PT-OP-M Strength Start: 12/13/24 14:27 Freq: Status: Active Protocol: Document 12/13/24 13:45 DCW (Rec: 12/14/24 14:13 DCW [id number]) Ankle/Foot Strength Ankle and Foot Manual Muscle Testing Right Dorsiflexion (L4) 4+ Good+ Plantarflexion (S1) 4+ Good+ Inversion 4+ Good+ Eversion (S1) 4+ Good+ Left Dorsiflexion (L4) 3+ Fair+ Plantarflexion (S1) 3+ Fair+ Inversion 3+ Fair+ Eversion (S1) 3+ Fair+ PT-OP-Q Treatments Start: 12/13/24 14:27 Freq: Status: Active Protocol: Document 01/31/25 14:03 NBM (Rec: 01/31/25 14:40 NBM [id number]) Gym Equipment Shuttle Recovery Bilateral Heel Raises Details L heel 3/10 pain during Resistance 37# Reps/Time x15 Unilateral Squats Details cues for LLE alignment. Resistance 37# Shuttle Recovery Platform Stable Reps/Time x15 Bilateral Squats Details cues to maintain LE alignment Resistance 75# Shuttle Recovery Platform Stable,Unstable Reps/Time x20, pt reports 3/10 max pain L heel. Shuttle Balance red chains Details a/p WBOS, NBOS Comments 1. balance & wt shift w/ ecc control 2. head turns (looking L>R challenging but improves) 3. EC - up to 8 sec WBOS, 6 sec NBOS Therapeutic Exercises Supine Exercises hamstring stretch Side bilateral Equipment Used on Shuttle Recovery, stable platform Reps/Minutes 60 Comments cues for painfree range calf stretch Supine Exercise Name following Side bilateral Resistance 37# Equipment Used Shuttle Recovery, stable platform Reps/Minutes 45 Comments dc'd d/t pain 4/10 on L and leg feeling fatigued. 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 Limited ankle ROM noted in all planes. LTG Duration 03/14/25 One Impairment Pt does not have an appropriate home exercise program Short Term Goal (STG) Pt to be independent and compliant with an appropriate HEP STG Duration 01/13/25 Three Impairment Decreased left ankle AROM, especially DF with knee extended (-4?) Impairment . Insecticide Maker Goal (LTG) Pt to demonstrate active ankle DF with knee extended to at least 5? in order to demonstrate improvement in functional ankle mobility and strength s/p surgical revision . LTG Duration 03/13/25 Assessment Summary Assessment Nicanor presents with R knee and L ankle brace. She reports L heel pain secondary to striking it at work today / which improves to 12/08 end of session, and R knee pain 2/10 unchanged secondary to child climbing on it in extension this morning. Pt has redness along Achilles t. and lateral to it and reports pain w/ resisted plantar flexion and eversion. Balance is challenged with head turns L>R on Shuttle Balance but demos improvement with repetition, and improved eccentric control with cueing. Appointment with tooth cutter Wednesday and with orthopedist 03/02. Physical Therapy Plan Frequency and Duration Frequency of Treatment 2x/Week Plan of Care Start Date 12/13/24 Plan of Care End Date 03/13/25 Therapeutic Interventions Therapeutic Interventions Balance Training,Gait Training ,Home Exercise Program,Joint Mobilizations,Manual Therapy, Neuromuscular Re-education, Patient/Caregiver Education, Self-Care/Home Management,Soft Tissue Mobilization, Therapeutic Activities, Therapeutic Exercises Modalities Cold Pack/Ice Massage,Hot Packs Next Visit Focus/Plan Next Note Type Treatment Note Next Visit Plan Review new HEP SL squat 4 step taps and ankle self-mob. Consider Y reach cones vs slider. Progress balance prn. POC: Ankle stretching and strengthening, progress weight bearing exercises when cleared
--- NOTE | 2025-02-15 13:02 | PT.OTN ---
Current Diagnoses Other chronic pain (02/15/25) Pain in left ankle and joints of left foot (02/15/25) Displaced bimalleolar fracture of left lower leg, subsequent encounter for closed fracture with malunion (02/15/25) Sprain of tibiofibular ligament of left ankle, sequela (02/15/25) Pain due to internal orthopedic prosthetic devices, implants and grafts, initial encounter (02/15/25) Physical Therapy Treatment Note PT-OP-A Visit Information Start: 12/13/24 14:27 Freq: Status: Active Protocol: Document 02/15/25 12:19 DCW (Rec: 02/15/25 13:02 DCW [id number]) Out-Patient Physical Therapy Visit Information Visit Information Visit Type Progress Note Visit Start Time 12:19 Visit Stop Time 13:00 Visit Number 10 Number of INSTRUMENT PERSON Visits 0 Evaluation Information Evaluation Date 12/13/24 PT-OP-B Current Condition Start: 12/13/24 14:27 Freq: Status: Active Protocol: Document 12/13/24 13:45 DCW (Rec: 12/14/24 14:13 DCW [id number]) Current Condition History of Current Condition Onset Date 13 year history Current Complaints Post-surgical left ankle pain/ stiffness History of Current Condition Pt is a 44 year old female presenting two months s/p revision of hardware 13 years after original ankle injury. Pt reports originally fractured tib/fib 13 years ago slipping on ice, and at the time, underwent surgical repair. Ankle has continued to bother her since then, after recent imaging, was told that her hardware was coming loose, and the wrong screws may have been used, and a revision was needed. Pt underwent revision two months ago, and was non-weight bearing until one week ago, now cleared to ambulate in a walking boot. Pt admits walking around [place] on left leg has started to mess up my right knee. Pt in general very hyper mobile, has resulted inn multiple injuries to both ankles, knees , and hips. Pt notes she will likely need a revision of the hardware in her right ankle sometime next year. Has follow -up with surgeon in two weeks, is hoping for more clearance for weight-bearing. So far, has largely been doing ankle mobility/stretching at home. 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 PT-OP-C Subjective Start: 12/13/24 14:27 Freq: Status: Active Protocol: Document 02/15/25 12:19 DCW (Rec: 02/15/25 13:02 DCW [id number]) OP-PT Subjective Patient Comments Patient Comments Pt limping a little more today . I think this cold weather just doesn't like me. 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 PT-OP-F Manual Assessment Start: 12/13/24 14:27 Freq: Status: Active Protocol: Document 12/13/24 13:45 DCW (Rec: 12/14/24 14:13 DCW [id number]) Manual Assessments Soft Tissue Assessment Soft Tissue Mobility Assessment Mild edema along inferior aspect of both L malleoli PT-OP-J Posture/Palpation/Skin Start: 12/14/24 14:13 Freq: Status: Active Protocol: Document 12/13/24 13:45 DCW (Rec: 12/14/24 14:28 DCW [id number]) Skin Assessment Circumference Measurement Figure-8 Location Left ankle Measurement (Centimeters) 52.4 Comments Right ankle Figure-8 = 51cm PT-OP-K Range of Motion Start: 12/13/24 14:27 Freq: Status: Active Protocol: Document 12/13/24 13:45 DCW (Rec: 12/14/24 14:13 DCW [id number]) Ankle and Foot Goniometric Range of Motion Ankle and Foot Right Active Testing Position Sitting Dorsiflexion with Knee Flexed 10 Dorsiflexion with Knee Extended 0 Plantarflexion 50 Inversion 50 Eversion 25 Left Passive Testing Position Sitting Dorsiflexion with Knee Flexed 4 Dorsiflexion with Knee Extended 0 Plantarflexion 50 Inversion 25 Eversion 20 Left Active Testing Position Sitting Dorsiflexion with Knee Flexed 8 Plantarflexion 46 Inversion 20 Eversion 12 Comments DF with knee extended measured at -4? PT-OP-M Strength Start: 12/13/24 14:27 Freq: Status: Active Protocol: Document 12/13/24 13:45 DCW (Rec: 12/14/24 14:13 DCW [id number]) Ankle/Foot Strength Ankle and Foot Manual Muscle Testing Right Dorsiflexion (L4) 4+ Good+ Plantarflexion (S1) 4+ Good+ Inversion 4+ Good+ Eversion (S1) 4+ Good+ Left Dorsiflexion (L4) 3+ Fair+ Plantarflexion (S1) 3+ Fair+ Inversion 3+ Fair+ Eversion (S1) 3+ Fair+ PT-OP-Q Treatments Start: 12/13/24 14:27 Freq: Status: Active Protocol: Document 02/15/25 12:19 DCW (Rec: 02/15/25 13:02 [facility] [id number]) Gym Equipment Shuttle Recovery Bilateral Heel Raises Details L heel 3/10 pain during Resistance 37# Reps/Time x15 Unilateral Squats Details cues for LLE alignment. Resistance 37# Shuttle Recovery Platform Stable Reps/Time x15 Bilateral Squats Details cues to maintain LE alignment Resistance 75# Shuttle Recovery Platform Stable Reps/Time x20 Shuttle Balance red chains Details WBOS - DF/PF, Lateral weight shift Manual Therapy Treatment Soft Tissue Mobilization L calf Body Location Uri Gastroc, Soleus, Achilles tenon Mobilization Type Cross-Friction,Rolling, Strumming,Sustained Pressure Intensity/Depth Moderate Body Position Sitting Comments manual stretch to gastroc and soleus. Cross-friction to Achilles with functional movement. Joint Mobilizations Ankle Joint Left Ankle Direction P<->A, Inv/Ev Body Position Sitting Comments cues for knee alignment Neuro Re-Education Treatment Balance Activities SLS Details SLS Surface AirEx PT-OP-T Assessment and Plan Start: 12/13/24 14:27 Freq: Status: Active Protocol: Document 02/15/25 12:19 DCW (Rec: 02/15/25 13:02 [facility] [id number]) Physical Therapy Assessment Impairments Impairments Activity Tolerance,Balance, Functional Activities, Functional Mobility,Gait,Pain, ROM,Soft Tissue Mobility, Strength Goals Two Impairment Pt unable to ambulate without walking boot Fdc Goal (LTG) Pt to progress through post-op precautions to return to WNL gait pattern without walking boot 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 Limited ankle ROM noted in all planes. LTG Duration 03/14/25 One Impairment Pt does not have an appropriate home exercise program Short Term Goal (STG) Pt to be independent and compliant with an appropriate HEP STG Duration 01/13/25 Three Impairment Decreased left ankle AROM, especially DF with knee extended (-4?) Fabricating Machine Operator Goal (LTG) Pt to demonstrate active ankle DF with knee extended to at least 5? in order to demonstrate improvement in functional ankle mobility and strength s/p surgical revision . LTG Duration 03/13/25 Assessment Summary Assessment Pt continues to demonstrate improvement with ROM, showing some better stability and control through left ankle, but is still limited by strength. Continue to focus on LE strengthening, joint stability, and functional mobility. Physical Therapy Plan Frequency and Duration Frequency of Treatment 2x/Week Plan of Care Start Date 12/13/24 Plan of Care End Date 03/13/25 Therapeutic Interventions Therapeutic Interventions Balance Training,Gait Training ,Home Exercise Program,Joint Mobilizations,Manual Therapy, Neuromuscular Re-education, Patient/Caregiver Education, Self-Care/Home Management,Soft Tissue Mobilization, Therapeutic Activities, Therapeutic Exercises Modalities Cold Pack/Ice Massage,Hot Packs Next Visit Focus/Plan Next Note Type Treatment Note Next Visit Plan Review new HEP SL squat 4 step taps and ankle self-mob. Consider Y reach cones vs slider. Progress balance prn. POC: Ankle stretching and strengthening, progress weight bearing exercises when cleared
--- NOTE | 2025-02-15 13:02 | PT.OPPOC ---
Physical, Occupational & Speech Therapy At Current Diagnoses Other chronic pain (02/15/25) Pain in left ankle and joints of left foot (02/15/25) Displaced bimalleolar fracture of left lower leg, subsequent encounter for closed fracture with malunion (02/15/25) Sprain of tibiofibular ligament of left ankle, sequela (02/15/25) Pain due to internal orthopedic prosthetic devices, implants and grafts, initial encounter (02/15/25) Visit Care Team Role Provider Type Devin Knutson MD Family Provider Physician Primary Care Provider Specialty: Family Practice Address: [address] [place], [address] Email: [email or web address] [email or web address] Craig DPM Attending Provider Non-Staff Referring Provider Specialty: Podiatry Address: [facility] [place], [address] Email: Plan Of Care PT-OP-B Current Condition Start: 12/13/24 14:27 Freq: Status: Active Protocol: Document 12/13/24 13:45 DCW (Rec: 12/14/24 14:13 DCW [id number]) Current Condition History of Current Condition Onset Date 13 year history Current Complaints Post-surgical left ankle pain/ stiffness History of Current Condition Pt is a 44 year old female presenting two months s/p revision of hardware 13 years after original ankle injury. Pt reports originally fractured tib/fib 13 years ago slipping on ice, and at the time, underwent surgical repair. Ankle has continued to bother her since then, after recent imaging, was told that her hardware was coming loose, and the wrong screws may have been used, and a revision was needed. Pt underwent revision two months ago, and was non-weight bearing until one week ago, now cleared to ambulate in a walking boot. Pt admits walking around [place] on left leg has started to mess up my right knee. Pt in general very hyper mobile, has resulted inn multiple injuries to both ankles, knees , and hips. Pt notes she will likely need a revision of the hardware in her right ankle sometime next year. Has follow -up with surgeon in two weeks, is hoping for more clearance for weight-bearing. So far, has largely been doing ankle mobility/stretching at home. 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 Limited ankle ROM noted in all planes. LTG Duration 03/14/25 One Impairment Pt does not have an appropriate home exercise program Short Term Goal (STG) Pt to be independent and compliant with an appropriate HEP STG Duration 01/13/25 Three Impairment Decreased left ankle AROM, especially DF with knee extended (-4?) Half-Way Goal (LTG) Pt to demonstrate active ankle DF with knee extended to at least 5? in order to demonstrate improvement in functional ankle mobility and strength s/p surgical revision . LTG Duration 03/13/25 Assessment Summary Assessment Pt continues to demonstrate improvement with ROM, showing some better stability and control through left ankle, but is still limited by strength. Continue to focus on LE strengthening, joint stability, and functional mobility. Physical Therapy Plan Frequency and Duration Frequency of Treatment 2x/Week Plan of Care Start Date 12/13/24 Plan of Care End Date 03/13/25 Therapeutic Interventions Therapeutic Interventions Balance Training,Gait Training ,Home Exercise Program,Joint Mobilizations,Manual Therapy, Neuromuscular Re-education, Patient/Caregiver Education, Self-Care/Home Management,Soft Tissue Mobilization, Therapeutic Activities, Therapeutic Exercises Modalities Cold Pack/Ice Massage,Hot Packs Next Visit Focus/Plan Next Note Type Treatment Note Next Visit Plan Review new HEP SL squat 4 step taps and ankle self-mob. Consider Y reach cones vs slider. Progress balance prn. POC: Ankle stretching and strengthening, progress weight bearing exercises when cleared Plan of Care Dates Plan of Care Start Date 12/13/24 Plan of Care End Date 03/13/25 Electronically Signed by: Jean Ogden, PT 02/15/25 [id number] If you are in agreement with this Plan of Care, please return a signed and dated copy. I have reviewed this Plan of Care and certify that the skilled therapy services above are required to meet the patient?s needs. Physician Signature Date Printed Name and Credentials Clinical Instructor Signature Printed Name and Credentials
--- NOTE | 2025-02-15 13:04 | PT.OTN ---
Current Diagnoses Other chronic pain (02/15/25) Pain in left ankle and joints of left foot (02/15/25) Displaced bimalleolar fracture of left lower leg, subsequent encounter for closed fracture with malunion (02/15/25) Sprain of tibiofibular ligament of left ankle, sequela (02/15/25) Pain due to internal orthopedic prosthetic devices, implants and grafts, initial encounter (02/15/25) Physical Therapy Treatment Note PT-OP-A Visit Information Start: 12/13/24 14:27 Freq: Status: Active Protocol: Document 02/15/25 12:19 DCW (Rec: 02/15/25 13:02 DCW [id number]) Out-Patient Physical Therapy Visit Information Visit Information Visit Type Progress Note Visit Start Time 12:19 Visit Stop Time 13:00 Visit Number 10 Number of PATIENT FLOW COORDINATOR Visits 0 Evaluation Information Evaluation Date 12/13/24 PT-OP-B Current Condition Start: 12/13/24 14:27 Freq: Status: Active Protocol: Document 12/13/24 13:45 DCW (Rec: 12/14/24 14:13 DCW [id number]) Current Condition History of Current Condition Onset Date 13 year history Current Complaints Post-surgical left ankle pain/ stiffness History of Current Condition Pt is a 44 year old female presenting two months s/p revision of hardware 13 years after original ankle injury. Pt reports originally fractured tib/fib 13 years ago slipping on ice, and at the time, underwent surgical repair. Ankle has continued to bother her since then, after recent imaging, was told that her hardware was coming loose, and the wrong screws may have been used, and a revision was needed. Pt underwent revision two months ago, and was non-weight bearing until one week ago, now cleared to ambulate in a walking boot. Pt admits walking around [place] on left leg has started to mess up my right knee. Pt in general very hyper mobile, has resulted inn multiple injuries to both ankles, knees , and hips. Pt notes she will likely need a revision of the hardware in her right ankle sometime next year. Has follow -up with surgeon in two weeks, is hoping for more clearance for weight-bearing. So far, has largely been doing ankle mobility/stretching at home. 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 PT-OP-C Subjective Start: 12/13/24 14:27 Freq: Status: Active Protocol: Document 02/15/25 12:19 DCW (Rec: 02/15/25 13:02 DCW [id number]) OP-PT Subjective Patient Comments Patient Comments Pt limping a little more today . I think this cold weather just doesn't like me. 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 PT-OP-F Manual Assessment Start: 12/13/24 14:27 Freq: Status: Active Protocol: Document 12/13/24 13:45 DCW (Rec: 12/14/24 14:13 DCW [id number]) Manual Assessments Soft Tissue Assessment Soft Tissue Mobility Assessment Mild edema along inferior aspect of both L malleoli PT-OP-J Posture/Palpation/Skin Start: 12/14/24 14:13 Freq: Status: Active Protocol: Document 12/13/24 13:45 DCW (Rec: 12/14/24 14:28 DCW [id number]) Skin Assessment Circumference Measurement Figure-8 Location Left ankle Measurement (Centimeters) 52.4 Comments Right ankle Figure-8 = 51cm PT-OP-K Range of Motion Start: 12/13/24 14:27 Freq: Status: Active Protocol: Document 02/15/25 12:19 DCW (Rec: 02/15/25 13:04 DCW [id number]) Ankle and Foot Goniometric Range of Motion Ankle and Foot Left Passive Testing Position Sitting Dorsiflexion with Knee Flexed 10 Dorsiflexion with Knee Extended 5 Plantarflexion 60 Inversion 50 Eversion 25 Left Active Testing Position Sitting Dorsiflexion with Knee Flexed 2 Plantarflexion 50 Inversion 25 Eversion 15 Comments DF with knee extended measured at -2? PT-OP-M Strength Start: 12/13/24 14:27 Freq: Status: Active Protocol: Document 12/13/24 13:45 DCW (Rec: 12/14/24 14:13 DCW [id number]) Ankle/Foot Strength Ankle and Foot Manual Muscle Testing Right Dorsiflexion (L4) 4+ Good+ Plantarflexion (S1) 4+ Good+ Inversion 4+ Good+ Eversion (S1) 4+ Good+ Left Dorsiflexion (L4) 3+ Fair+ Plantarflexion (S1) 3+ Fair+ Inversion 3+ Fair+ Eversion (S1) 3+ Fair+ PT-OP-Q Treatments Start: 12/13/24 14:27 Freq: Status: Active Protocol: Document 02/15/25 12:19 DCW (Rec: 02/15/25 13:02 DCW [id number]) Gym Equipment Shuttle Recovery Bilateral Heel Raises Details L heel 3/10 pain during Resistance 37# Reps/Time x15 Unilateral Squats Details cues for LLE alignment. Resistance 37# Shuttle Recovery Platform Stable Reps/Time x15 Bilateral Squats Details cues to maintain LE alignment Resistance 75# Shuttle Recovery Platform Stable Reps/Time x20 Shuttle Balance red chains Details WBOS - DF/PF, Lateral weight shift Manual Therapy Treatment Soft Tissue Mobilization L calf Body Location Uri Gastroc, Soleus, Achilles tenon Mobilization Type Cross-Friction,Rolling, Strumming,Sustained Pressure Intensity/Depth Moderate Body Position Sitting Comments manual stretch to gastroc and soleus. Cross-friction to Achilles with functional movement. Joint Mobilizations Ankle Joint Left Ankle Direction P<->A, Inv/Ev Body Position Sitting Comments cues for knee alignment Neuro Re-Education Treatment Balance Activities SLS Details SLS Surface AirEx PT-OP-T Assessment and Plan Start: 12/13/24 14:27 Freq: Status: Active Protocol: Document 02/15/25 12:19 DCW (Rec: 02/15/25 13:02 DCW [id number]) Physical Therapy Assessment Impairments Impairments Activity Tolerance,Balance, Functional Activities, Functional Mobility,Gait,Pain, ROM,Soft Tissue Mobility, Strength Goals Two Impairment Pt unable to ambulate without walking boot Claim Service Representative Goal (LTG) Pt to progress through post-op precautions to return to WNL gait pattern without walking boot 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 Limited ankle ROM noted in all planes. LTG Duration 03/14/25 One Impairment Pt does not have an appropriate home exercise program Short Term Goal (STG) Pt to be independent and compliant with an appropriate HEP STG Duration 01/13/25 Three Impairment Decreased left ankle AROM, especially DF with knee extended (-4?) Claim Service Representative Goal (LTG) Pt to demonstrate active ankle DF with knee extended to at least 5? in order to demonstrate improvement in functional ankle mobility and strength s/p surgical revision . LTG Duration 03/13/25 Assessment Summary Assessment Pt continues to demonstrate improvement with ROM, showing some better stability and control through left ankle, but is still limited by strength. Continue to focus on LE strengthening, joint stability, and functional mobility. Physical Therapy Plan Frequency and Duration Frequency of Treatment 2x/Week Plan of Care Start Date 12/13/24 Plan of Care End Date 03/13/25 Therapeutic Interventions Therapeutic Interventions Balance Training,Gait Training ,Home Exercise Program,Joint Mobilizations,Manual Therapy, Neuromuscular Re-education, Patient/Caregiver Education, Self-Care/Home Management,Soft Tissue Mobilization, Therapeutic Activities, Therapeutic Exercises Modalities Cold Pack/Ice Massage,Hot Packs Next Visit Focus/Plan Next Note Type Treatment Note Next Visit Plan Review new HEP SL squat 4 step taps and ankle self-mob. Consider Y reach cones vs slider. Progress balance prn. POC: Ankle stretching and strengthening, progress weight bearing exercises when cleared
--- NOTE | 2025-02-19 11:30 | PT.OTN ---
Current Diagnoses Other chronic pain (02/19/25) Pain in left ankle and joints of left foot (02/19/25) Displaced bimalleolar fracture of left lower leg, subsequent encounter for closed fracture with malunion (02/19/25) Sprain of tibiofibular ligament of left ankle, sequela (02/19/25) Pain due to internal orthopedic prosthetic devices, implants and grafts, initial encounter (02/19/25) Physical Therapy Treatment Note PT-OP-A Visit Information Start: 12/13/24 14:27 Freq: Status: Active Protocol: Document 02/19/25 10:47 DCW (Rec: 02/19/25 11:30 DCW [id number]) Out-Patient Physical Therapy Visit Information Visit Information Visit Type Treatment Note Visit Start Time 10:47 Visit Stop Time 11:30 Visit Number 11 Number of CALCULATION REVIEWER Visits 0 Evaluation Information Evaluation Date 12/13/24 PT-OP-B Current Condition Start: 12/13/24 14:27 Freq: Status: Active Protocol: Document 12/13/24 13:45 DCW (Rec: 12/14/24 14:13 DCW [id number]) Current Condition History of Current Condition Onset Date 13 year history Current Complaints Post-surgical left ankle pain/ stiffness History of Current Condition Pt is a 44 year old female presenting two months s/p revision of hardware 13 years after original ankle injury. Pt reports originally fractured tib/fib 13 years ago slipping on ice, and at the time, underwent surgical repair. Ankle has continued to bother her since then, after recent imaging, was told that her hardware was coming loose, and the wrong screws may have been used, and a revision was needed. Pt underwent revision two months ago, and was non-weight bearing until one week ago, now cleared to ambulate in a walking boot. Pt admits walking around [place] on left leg has started to mess up my right knee. Pt in general very hyper mobile, has resulted inn multiple injuries to both ankles, knees , and hips. Pt notes she will likely need a revision of the hardware in her right ankle sometime next year. Has follow -up with surgeon in two weeks, is hoping for more clearance for weight-bearing. So far, has largely been doing ankle mobility/stretching at home. 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 PT-OP-C Subjective Start: 12/13/24 14:27 Freq: Status: Active Protocol: Document 02/19/25 10:47 DCW (Rec: 02/19/25 11:30 DCW [id number]) OP-PT Subjective Patient Comments Patient Comments Pt feeling better overall, worked four partial days last week. PT-OP-F Manual Assessment Start: 12/13/24 14:27 Freq: Status: Active Protocol: Document 12/13/24 13:45 DCW (Rec: 12/14/24 14:13 DCW [id number]) Manual Assessments Soft Tissue Assessment Soft Tissue Mobility Assessment Mild edema along inferior aspect of both L malleoli PT-OP-J Posture/Palpation/Skin Start: 12/14/24 14:13 Freq: Status: Active Protocol: Document 12/13/24 13:45 DCW (Rec: 12/14/24 14:28 DCW [id number]) Skin Assessment Circumference Measurement Figure-8 Location Left ankle Measurement (Centimeters) 52.4 Comments Right ankle Figure-8 = 51cm PT-OP-K Range of Motion Start: 12/13/24 14:27 Freq: Status: Active Protocol: Document 02/15/25 12:19 DCW (Rec: 02/15/25 13:04 DCW [id number]) Ankle and Foot Goniometric Range of Motion Ankle and Foot Left Passive Testing Position Sitting Dorsiflexion with Knee Flexed 10 Dorsiflexion with Knee Extended 5 Plantarflexion 60 Inversion 50 Eversion 25 Left Active Testing Position Sitting Dorsiflexion with Knee Flexed 2 Plantarflexion 50 Inversion 25 Eversion 15 Comments DF with knee extended measured at -2? PT-OP-M Strength Start: 12/13/24 14:27 Freq: Status: Active Protocol: Document 12/13/24 13:45 DCW (Rec: 12/14/24 14:13 DCW [id number]) Ankle/Foot Strength Ankle and Foot Manual Muscle Testing Right Dorsiflexion (L4) 4+ Good+ Plantarflexion (S1) 4+ Good+ Inversion 4+ Good+ Eversion (S1) 4+ Good+ Left Dorsiflexion (L4) 3+ Fair+ Plantarflexion (S1) 3+ Fair+ Inversion 3+ Fair+ Eversion (S1) 3+ Fair+ PT-OP-Q Treatments Start: 12/13/24 14:27 Freq: Status: Active Protocol: Document 02/19/25 10:47 DCW (Rec: 02/19/25 11:30 DCW [id number]) Gym Equipment Shuttle Recovery Bilateral Heel Raises Resistance 37# Reps/Time x15 Unilateral Squats Resistance 37# Shuttle Recovery Platform Stable Reps/Time x15 Bilateral Squats Resistance 75# Shuttle Recovery Platform Stable Reps/Time x20 Shuttle Balance red chains Details WBOS, Staggered, Lateral weight shift Manual Therapy Treatment Soft Tissue Mobilization L calf Body Location Uri Gastroc, Soleus, Achilles tenon Mobilization Type Cross-Friction,Rolling, Strumming,Sustained Pressure Intensity/Depth Moderate Body Position Sitting Comments manual stretch to gastroc and soleus. Cross-friction to Achilles with functional movement. Joint Mobilizations Ankle Joint Left Ankle Direction P<->A, Inv/Ev Body Position Sitting Comments cues for knee alignment Neuro Re-Education Treatment Balance Activities BOSU Lunge Details BOSU Lunge SLS Details SLS Surface AirEx PT-OP-T Assessment and Plan Start: 12/13/24 14:27 Freq: Status: Active Protocol: Document 02/19/25 10:47 DCW (Rec: 02/19/25 11:30 DCW [id number]) Physical Therapy Assessment Impairments Impairments Activity Tolerance,Balance, Functional Activities, Functional Mobility,Gait,Pain, ROM,Soft Tissue Mobility, Strength Goals Two Impairment Pt unable to ambulate without walking boot Balance Clerk Goal (LTG) Pt to progress through post-op precautions to return to WNL gait pattern without walking boot 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 Limited ankle ROM noted in all planes. LTG Duration 03/14/25 One Impairment Pt does not have an appropriate home exercise program Short Term Goal (STG) Pt to be independent and compliant with an appropriate HEP STG Duration 01/13/25 Three Impairment Decreased left ankle AROM, especially DF with knee extended (-4?) Care Home Goal (LTG) Pt to demonstrate active ankle DF with knee extended to at least 5? in order to demonstrate improvement in functional ankle mobility and strength s/p surgical revision . LTG Duration 03/13/25 Assessment Summary Assessment Pt progressing slowly, improving with standing tolerance at work, continue to focus on return to prior level of function Physical Therapy Plan Frequency and Duration Frequency of Treatment 2x/Week Plan of Care Start Date 12/13/24 Plan of Care End Date 03/13/25 Therapeutic Interventions Therapeutic Interventions Balance Training,Gait Training ,Home Exercise Program,Joint Mobilizations,Manual Therapy, Neuromuscular Re-education, Patient/Caregiver Education, Self-Care/Home Management,Soft Tissue Mobilization, Therapeutic Activities, Therapeutic Exercises Modalities Cold Pack/Ice Massage,Hot Packs Next Visit Focus/Plan Next Note Type Treatment Note Next Visit Plan Review new HEP SL squat 4 step taps and ankle self-mob. Consider Y reach cones vs slider. Progress balance prn. POC: Ankle stretching and strengthening, progress weight bearing exercises when cleared
--- NOTE | 2025-02-22 12:19 | PT.OTN ---
Current Diagnoses Other chronic pain (02/22/25) Pain in left ankle and joints of left foot (02/22/25) Displaced bimalleolar fracture of left lower leg, subsequent encounter for closed fracture with malunion (02/22/25) Sprain of tibiofibular ligament of left ankle, sequela (02/22/25) Pain due to internal orthopedic prosthetic devices, implants and grafts, initial encounter (02/22/25) Physical Therapy Treatment Note PT-OP-A Visit Information Start: 12/13/24 14:27 Freq: Status: Active Protocol: Document 02/22/25 11:30 DCW (Rec: 02/22/25 12:19 DCW [id number]) Out-Patient Physical Therapy Visit Information Visit Information Visit Type Treatment Note Visit Start Time 11:30 Visit Stop Time 12:15 Visit Number 12 Number of COMBINATION OPERATOR Visits 0 Evaluation Information Evaluation Date 12/13/24 PT-OP-B Current Condition Start: 12/13/24 14:27 Freq: Status: Active Protocol: Document 12/13/24 13:45 DCW (Rec: 12/14/24 14:13 DCW [id number]) Current Condition History of Current Condition Onset Date 13 year history Current Complaints Post-surgical left ankle pain/ stiffness History of Current Condition Pt is a 44 year old female presenting two months s/p revision of hardware 13 years after original ankle injury. Pt reports originally fractured tib/fib 13 years ago slipping on ice, and at the time, underwent surgical repair. Ankle has continued to bother her since then, after recent imaging, was told that her hardware was coming loose, and the wrong screws may have been used, and a revision was needed. Pt underwent revision two months ago, and was non-weight bearing until one week ago, now cleared to ambulate in a walking boot. Pt admits walking around [place] on left leg has started to mess up my right knee. Pt in general very hyper mobile, has resulted inn multiple injuries to both ankles, knees , and hips. Pt notes she will likely need a revision of the hardware in her right ankle sometime next year. Has follow -up with surgeon in two weeks, is hoping for more clearance for weight-bearing. So far, has largely been doing ankle mobility/stretching at home. 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 PT-OP-C Subjective Start: 12/13/24 14:27 Freq: Status: Active Protocol: Document 02/22/25 11:30 DCW (Rec: 02/22/25 12:19 DCW [id number]) OP-PT Subjective Patient Comments Patient Comments Basic sore after work thing, but it's feeling pretty good. PT-OP-F Manual Assessment Start: 12/13/24 14:27 Freq: Status: Active Protocol: Document 12/13/24 13:45 DCW (Rec: 12/14/24 14:13 DCW [id number]) Manual Assessments Soft Tissue Assessment Soft Tissue Mobility Assessment Mild edema along inferior aspect of both L malleoli PT-OP-J Posture/Palpation/Skin Start: 12/14/24 14:13 Freq: Status: Active Protocol: Document 12/13/24 13:45 DCW (Rec: 12/14/24 14:28 DCW [id number]) Skin Assessment Circumference Measurement Figure-8 Location Left ankle Measurement (Centimeters) 52.4 Comments Right ankle Figure-8 = 51cm PT-OP-K Range of Motion Start: 12/13/24 14:27 Freq: Status: Active Protocol: Document 02/15/25 12:19 DCW (Rec: 02/15/25 13:04 DCW [id number]) Ankle and Foot Goniometric Range of Motion Ankle and Foot Left Passive Testing Position Sitting Dorsiflexion with Knee Flexed 10 Dorsiflexion with Knee Extended 5 Plantarflexion 60 Inversion 50 Eversion 25 Left Active Testing Position Sitting Dorsiflexion with Knee Flexed 2 Plantarflexion 50 Inversion 25 Eversion 15 Comments DF with knee extended measured at -2? PT-OP-M Strength Start: 12/13/24 14:27 Freq: Status: Active Protocol: Document 12/13/24 13:45 DCW (Rec: 12/14/24 14:13 DCW [id number]) Ankle/Foot Strength Ankle and Foot Manual Muscle Testing Right Dorsiflexion (L4) 4+ Good+ Plantarflexion (S1) 4+ Good+ Inversion 4+ Good+ Eversion (S1) 4+ Good+ Left Dorsiflexion (L4) 3+ Fair+ Plantarflexion (S1) 3+ Fair+ Inversion 3+ Fair+ Eversion (S1) 3+ Fair+ PT-OP-Q Treatments Start: 12/13/24 14:27 Freq: Status: Active Protocol: Document 02/22/25 11:30 DCW (Rec: 02/22/25 12:19 DCW [id number]) Gym Equipment Shuttle Recovery Bilateral Heel Raises Resistance 37# Reps/Time x15 Unilateral Squats Resistance 37# Shuttle Recovery Platform Stable Reps/Time x15 Bilateral Squats Resistance 75# Shuttle Recovery Platform Stable Reps/Time x20 Shuttle Balance red chains Details WBOS, Staggered, Lateral weight shift Therapeutic Exercises Other Exercises Heel Raises Other Exercise Name Heel Raises Side bilateral Comments add to HEP Step-ups Other Exercise Name Step-ups Side bilateral Equipment Used 6 step Manual Therapy Treatment Soft Tissue Mobilization L calf Body Location Uri Gastroc, Soleus, Achilles tenon Mobilization Type Cross-Friction,Rolling, Strumming,Sustained Pressure Intensity/Depth Moderate Body Position Sitting Comments manual stretch to gastroc and soleus. Cross-friction to Achilles with functional movement. Joint Mobilizations Ankle Joint Left Ankle Direction P<->A, Inv/Ev Body Position Sitting Comments cues for knee alignment Neuro Re-Education Treatment Balance Activities BOSU Lunge Details BOSU Lunge SLS Details SLS Surface AirEx PT-OP-T Assessment and Plan Start: 12/13/24 14:27 Freq: Status: Active Protocol: Document 02/22/25 11:30 DCW (Rec: 02/22/25 12:19 DCW [id number]) Physical Therapy Assessment Impairments Impairments Activity Tolerance,Balance, Functional Activities, Functional Mobility,Gait,Pain, ROM,Soft Tissue Mobility, Strength Goals Two Impairment Pt unable to ambulate without walking boot Phlebotomist Goal (LTG) Pt to progress through post-op precautions to return to WNL gait pattern without walking boot in order to 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 Limited ankle ROM noted in all planes. LTG Duration 03/14/25 One Impairment Pt does not have an appropriate home exercise program Short Term Goal (STG) Pt to be independent and compliant with an appropriate HEP STG Duration 01/13/25 Three Impairment Decreased left ankle AROM, especially DF with knee extended (-4?) Detention Goal (LTG) Pt to demonstrate active ankle DF with knee extended to at least 5? in order to demonstrate improvement in functional ankle mobility and strength s/p surgical revision . LTG Duration 03/13/25 Assessment Summary Assessment Pt ROM showing good improvement, still more limited with strength. Attempted heel raises today, pt struggled. Continue to work on ankle mobility, strength, gait normalization, and pain control Physical Therapy Plan Frequency and Duration Frequency of Treatment 2x/Week Plan of Care Start Date 12/13/24 Plan of Care End Date 03/13/25 Therapeutic Interventions Therapeutic Interventions Balance Training,Gait Training ,Home Exercise Program,Joint Mobilizations,Manual Therapy, Neuromuscular Re-education, Patient/Caregiver Education, Self-Care/Home Management,Soft Tissue Mobilization, Therapeutic Activities, Therapeutic Exercises Modalities Cold Pack/Ice Massage,Hot Packs Next Visit Focus/Plan Next Note Type Treatment Note Next Visit Plan Review new HEP SL squat 4 step taps and ankle self-mob. Consider Y reach cones vs slider. Progress balance prn. POC: Ankle stretching and strengthening, progress weight bearing exercises when cleared
--- NOTE | 2025-03-07 14:10 | PT.OTN ---
Current Diagnoses Other chronic pain (03/07/25) Pain in left ankle and joints of left foot (03/07/25) Displaced bimalleolar fracture of left lower leg, subsequent encounter for closed fracture with malunion (03/07/25) Sprain of tibiofibular ligament of left ankle, sequela (03/07/25) Pain due to internal orthopedic prosthetic devices, implants and grafts, initial encounter (03/07/25) Physical Therapy Treatment Note PT-OP-A Visit Information Start: 12/13/24 14:27 Freq: Status: Active Protocol: Document 03/07/25 11:43 NBM (Rec: 03/07/25 12:34 NBM Laptop) Out-Patient Physical Therapy Visit Information Visit Information Visit Type Treatment Note Visit Start Time 11:39 Visit Stop Time 12:20 Visit Number 13 Number of FACILITIES OFFICER Visits 1 Evaluation Information Evaluation Date 12/13/24 Precautions Precautions *pt reports cold intolerance* PT-OP-B Current Condition Start: 12/13/24 14:27 Freq: Status: Active Protocol: Document 12/13/24 13:45 DCW (Rec: 12/14/24 14:13 DCW [id number]) Current Condition History of Current Condition Onset Date 13 year history Current Complaints Post-surgical left ankle pain/ stiffness History of Current Condition Pt is a 44 year old female presenting two months s/p revision of hardware 13 years after original ankle injury. Pt reports originally fractured tib/fib 13 years ago slipping on ice, and at the time, underwent surgical repair. Ankle has continued to bother her since then, after recent imaging, was told that her hardware was coming loose, and the wrong screws may have been used, and a revision was needed. Pt underwent revision two months ago, and was non-weight bearing until one week ago, now cleared to ambulate in a walking boot. Pt admits walking around [place] on left leg has started to mess up my right knee. Pt in general very hyper mobile, has resulted inn multiple injuries to both ankles, knees , and hips. Pt notes she will likely need a revision of the hardware in her right ankle sometime next year. Has follow -up with surgeon in two weeks, is hoping for more clearance for weight-bearing. So far, has largely been doing ankle mobility/stretching at home. 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 PT-OP-C Subjective Start: 12/13/24 14:27 Freq: Status: Active Protocol: Document 03/07/25 11:43 NBM (Rec: 03/07/25 12:34 NBM Laptop) OP-PT Subjective Patient Comments Patient Comments Nicanor reports she's been doing well overall but last night the bottom of her L foot popped and maybe sprained, she's not sure, so it's sore today and maybe related to when she twisted her ankle a couple weeks ago when her R knee gave out at work, and yesterday she felt like she pinched a nerve in her back and worked yesterday so her back is bothering her today. She's been using warm baths to try to help since she has cold intolerance. She is waiting for insurance approval for hyolauronic acid shots for her R knee. She has her L ankle and R knee braces on and walked to PT less than 5 minutes. She's been walking almost sideways down stairs because of her balance especially steeper ones because the R leg doesn't like to bend. PT-OP-F Manual Assessment Start: 12/13/24 14:27 Freq: Status: Active Protocol: Document 12/13/24 13:45 DCW (Rec: 12/14/24 14:13 DCW [id number]) Manual Assessments Soft Tissue Assessment Soft Tissue Mobility Assessment Mild edema along inferior aspect of both L malleoli PT-OP-J Posture/Palpation/Skin Start: 12/14/24 14:13 Freq: Status: Active Protocol: Document 12/13/24 13:45 DCW (Rec: 12/14/24 14:28 DCW [id number]) Skin Assessment Circumference Measurement Figure-8 Location Left ankle Measurement (Centimeters) 52.4 Comments Right ankle Figure-8 = 51cm PT-OP-K Range of Motion Start: 12/13/24 14:27 Freq: Status: Active Protocol: Document 02/15/25 12:19 DCW (Rec: 02/15/25 13:04 DCW [id number]) Ankle and Foot Goniometric Range of Motion Ankle and Foot Left Passive Testing Position Sitting Dorsiflexion with Knee Flexed 10 Dorsiflexion with Knee Extended 5 Plantarflexion 60 Inversion 50 Eversion 25 Left Active Testing Position Sitting Dorsiflexion with Knee Flexed 2 Plantarflexion 50 Inversion 25 Eversion 15 Comments DF with knee extended measured at -2? PT-OP-M Strength Start: 12/13/24 14:27 Freq: Status: Active Protocol: Document 12/13/24 13:45 DCW (Rec: 12/14/24 14:13 DCW [id number]) Ankle/Foot Strength Ankle and Foot Manual Muscle Testing Right Dorsiflexion (L4) 4+ Good+ Plantarflexion (S1) 4+ Good+ Inversion 4+ Good+ Eversion (S1) 4+ Good+ Left Dorsiflexion (L4) 3+ Fair+ Plantarflexion (S1) 3+ Fair+ Inversion 3+ Fair+ Eversion (S1) 3+ Fair+ PT-OP-Q Treatments Start: 12/13/24 14:27 Freq: Status: Active Protocol: Document 03/07/25 11:43 NBM (Rec: 03/07/25 12:34 NBM Laptop) Gym Equipment Shuttle Recovery Bilateral Heel Raises Resistance 37# Reps/Time x20 in DF/PF range, then DF hold for calf stretch Uri 45 Unilateral Squats Details L verbal and visual cues for LE alignment, R vc maintain heel contact Resistance 37# Shuttle Recovery Platform Stable Reps/Time x20 Bilateral Squats Resistance 75# Shuttle Recovery Platform Stable Reps/Time x20 Shuttle Balance red chains Details Fwd WBOS, Staggered; Lateral weight shift Comments Fwd B ORTHOTICS ASSISTANT to ORTHOTICS ASSISTANT prn: a/p weightshifing, eccentric control, EO/EC 30 s trials ( LLE fwd more challenging that RLE fwd.) Therapeutic Exercises Standing Exercises calf stretch Standing Exercise Name gastrocnemius Side bilateral Equipment Used steps Reps/Minutes 30 Comments soleus attempted but dc'd d/t R knee pain today. Other Exercises Heel Raises Other Exercise Name 1. DL heel raise (HEP) 2. SL eccentric heel raise RLE Side bilateral Reps/Minutes x10 ea Comments HEP review, (LLE SL eccentric trialed, dc'd d/t pt c/o pain today) Step-ups Other Exercise Name Step-ups LLE first. Side bilateral Equipment Used 6 step Comments cues for upright posture throughout. RLE first dc'd dut to R knee pain. 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 Limited ankle ROM noted in all planes. LTG Duration 03/14/25 One Impairment Pt does not have an appropriate home exercise program Short Term Goal (STG) Pt to be independent and compliant with an appropriate HEP STG Duration 01/13/25 Three Impairment Decreased left ankle AROM, especially DF with knee extended (-4?) Impairment . Custodial Goal (LTG) Pt to demonstrate active ankle DF with knee extended to at least 5? in order to demonstrate improvement in functional ankle mobility and strength s/p surgical revision . LTG Duration 03/13/25 Assessment Summary Assessment Treatment is occasionally pain -limited in R knee flexion, for which authorization for hyaluronic acid shots is pending. On Shuttle balance red clips staggered stance LLE fwd is more challenging that RLE fwd with anteroposterior weight shifting. Pt is able to progress from B handhold assist to ORTHOTICS ASSISTANT as needed. She requires verbal cues initially to maintain R heel contact with platform during supine leg press, particularly during eccentric knee flexion. Pt is able to perform SL eccentric heel raises on RLE but is pain -limited in L ankle when attempted today on LLE, possibly secondary to pt reports of recently twisting ankle. She is reminded of use of rolling pin for self-STM to calves as needed. She tolerates increased repetitions on Shuttle Recovery for Uri and unilateral squats and heel raises. Pt has cold intolerance and relies on warm baths for pain management so is educated to avoid heat initially for acute sprain. Physical Therapy Plan Frequency and Duration Frequency of Treatment 2x/Week Plan of Care Start Date 12/13/24 Plan of Care End Date 03/13/25 Therapeutic Interventions Therapeutic Interventions Balance Training,Gait Training ,Home Exercise Program,Joint Mobilizations,Manual Therapy, Neuromuscular Re-education, Patient/Caregiver Education, Self-Care/Home Management,Soft Tissue Mobilization, Therapeutic Activities, Therapeutic Exercises Modalities Cold Pack/Ice Massage,Hot Packs Next Visit Focus/Plan Next Note Type Treatment Note Next Visit Plan Consider SL eccentric heel raises when LLE recovered from recent ankle sprain. Review new HEP SL squat 4 step taps and ankle self-mob. Consider Y reach cones vs slider. Progress balance prn. POC: Ankle stretching and strengthening, progress weight bearing exercises when cleared
--- NOTE | 2025-03-12 11:29 | PT.OTN ---
Current Diagnoses Other chronic pain (03/12/25) Pain in left ankle and joints of left foot (03/12/25) Displaced bimalleolar fracture of left lower leg, subsequent encounter for closed fracture with malunion (03/12/25) Sprain of tibiofibular ligament of left ankle, sequela (03/12/25) Pain due to internal orthopedic prosthetic devices, implants and grafts, initial encounter (03/12/25) Physical Therapy Treatment Note PT-OP-A Visit Information Start: 12/13/24 14:27 Freq: Status: Active Protocol: Document 03/12/25 10:45 DCW (Rec: 03/12/25 11:28 DCW [id number]) Out-Patient Physical Therapy Visit Information Visit Information Visit Type Progress Note Visit Start Time 10:45 Visit Stop Time 11:30 Visit Number 14 Number of BUSINESS ATTORNEY Visits 0 Evaluation Information Evaluation Date 12/13/24 Precautions Precautions *pt reports cold intolerance* PT-OP-B Current Condition Start: 12/13/24 14:27 Freq: Status: Active Protocol: Document 12/13/24 13:45 DCW (Rec: 12/14/24 14:13 DCW [id number]) Current Condition History of Current Condition Onset Date 13 year history Current Complaints Post-surgical left ankle pain/ stiffness History of Current Condition Pt is a 44 year old female presenting two months s/p revision of hardware 13 years after original ankle injury. Pt reports originally fractured tib/fib 13 years ago slipping on ice, and at the time, underwent surgical repair. Ankle has continued to bother her since then, after recent imaging, was told that her hardware was coming loose, and the wrong screws may have been used, and a revision was needed. Pt underwent revision two months ago, and was non-weight bearing until one week ago, now cleared to ambulate in a walking boot. Pt admits walking around [place] on left leg has started to mess up my right knee. Pt in general very hyper mobile, has resulted inn multiple injuries to both ankles, knees , and hips. Pt notes she will likely need a revision of the hardware in her right ankle sometime next year. Has follow -up with surgeon in two weeks, is hoping for more clearance for weight-bearing. So far, has largely been doing ankle mobility/stretching at home. 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 PT-OP-C Subjective Start: 12/13/24 14:27 Freq: Status: Active Protocol: Document 03/12/25 10:45 DCW (Rec: 03/12/25 11:28 DCW [id number]) OP-PT Subjective Patient Comments Patient Comments Pt reports she strained her back the other day, had to go to visit her PCP due to pain. Has been improving. PT-OP-F Manual Assessment Start: 12/13/24 14:27 Freq: Status: Active Protocol: Document 03/12/25 10:45 DCW (Rec: 03/12/25 10:56 DCW [id number]) Manual Assessments Soft Tissue Assessment Soft Tissue Mobility Assessment Mild edema along inferior aspect of both L malleoli PT-OP-J Posture/Palpation/Skin Start: 12/14/24 14:13 Freq: Status: Active Protocol: Document 12/13/24 13:45 DCW (Rec: 12/14/24 14:28 DCW [id number]) Skin Assessment Circumference Measurement Figure-8 Location Left ankle Measurement (Centimeters) 52.4 Comments Right ankle Figure-8 = 51cm PT-OP-K Range of Motion Start: 12/13/24 14:27 Freq: Status: Active Protocol: Document 03/12/25 10:45 DCW (Rec: 03/12/25 10:56 DCW [id number]) Ankle and Foot Goniometric Range of Motion Ankle and Foot Left Passive Testing Position Sitting Dorsiflexion with Knee Flexed 7 Dorsiflexion with Knee Extended 0 Plantarflexion 60 Inversion 50 Eversion 25 Left Active Testing Position Sitting Dorsiflexion with Knee Flexed 3 Inversion 32 Eversion 25 Comments DF with knee extended measured at -2? PT-OP-M Strength Start: 12/13/24 14:27 Freq: Status: Active Protocol: Document 03/12/25 10:45 DCW (Rec: 03/12/25 10:56 DCW [id number]) Ankle/Foot Strength Ankle and Foot Manual Muscle Testing Right Dorsiflexion (L4) 4+ Good+ Plantarflexion (S1) 4+ Good+ Inversion 4+ Good+ Eversion (S1) 4+ Good+ Left Dorsiflexion (L4) 4+ Good+ Plantarflexion (S1) 4 Good Inversion 4 Good Eversion (S1) 4 Good PT-OP-Q Treatments Start: 12/13/24 14:27 Freq: Status: Active Protocol: Document 03/12/25 10:45 DCW (Rec: 03/12/25 11:28 DCW [id number]) Gym Equipment Shuttle Recovery Bilateral Heel Raises Resistance 37# Reps/Time x20 in DF/PF range, then DF hold for calf stretch Uri 45 Unilateral Squats Details L verbal and visual cues for LE alignment, R vc maintain heel contact Resistance 37# Shuttle Recovery Platform Stable Reps/Time x20 Bilateral Squats Resistance 62# Shuttle Recovery Platform Stable Reps/Time x20 Shuttle Balance red chains Details WBOS, Lateral weight shift Therapeutic Exercises Standing Exercises calf stretch Standing Exercise Name gastrocnemius Side bilateral Equipment Used SANGEETA Reps/Minutes 30 PT-OP-T Assessment and Plan Start: 12/13/24 14:27 Freq: Status: Active Protocol: Document 03/12/25 10:45 DCW (Rec: 03/12/25 11:28 DCW [id number]) Physical Therapy Assessment Goals Two Impairment Pt unable to ambulate without walking boot Group Home Goal (LTG) Pt to progress through post-op precautions to return to WNL gait pattern without walking boot in 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 in order to demonstrate improvement in functional ankle mobility and strength s/p surgical revision . LTG Duration 05/12/25 - Improving Assessment Summary Assessment ROM improving quite a bit, but continues to be limited with gait secondary to discomfort/ popping in joint. Strength improving, but still having some difficulty returning to work full-time. 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 A little more limited today following recent low back sprain, pt requested sitting in chair instead of table due to back. Physical Therapy Plan Frequency and Duration Frequency of Treatment 2x/Week Plan of Care Start Date 03/12/25 Plan of Care End Date 05/12/25 Therapeutic Interventions Therapeutic Interventions Balance Training,Gait Training ,Home Exercise Program,Joint Mobilizations,Manual Therapy, Neuromuscular Re-education, Patient/Caregiver Education, Self-Care/Home Management,Soft Tissue Mobilization, Therapeutic Activities, Therapeutic Exercises Modalities Cold Pack/Ice Massage,Hot Packs Next Visit Focus/Plan Next Note Type Treatment Note Next Visit Plan Consider SL eccentric heel raises when LLE recovered from recent ankle sprain. Review new HEP SL squat 4 step taps and ankle self-mob. Consider Y reach cones vs slider. Progress balance prn. POC: Ankle stretching and strengthening, progress weight bearing exercises when cleared
--- NOTE | 2025-03-12 11:29 | PT.OPPOC ---
Physical, Occupational & Speech Therapy At [facility] Current Diagnoses Other chronic pain (03/12/25) Pain in left ankle and joints of left foot (03/12/25) Displaced bimalleolar fracture of left lower leg, subsequent encounter for closed fracture with malunion (03/12/25) Sprain of tibiofibular ligament of left ankle, sequela (03/12/25) Pain due to internal orthopedic prosthetic devices, implants and grafts, initial encounter (03/12/25) Visit Care Team Role Provider Type Devin Knutson MD Family Provider Physician Primary Care Provider Specialty: Family Practice [address]: [address] [place], [address] Email: [email or web address] Davey Craig DPM Attending Provider Non-Staff Referring Provider Specialty: Podiatry Address: [facility] [place], [address] Email: Plan Of Care PT-OP-B Current Condition Start: 12/13/24 14:27 Freq: Status: Active Protocol: Document 12/13/24 13:45 DCW (Rec: 12/14/24 14:13 DCW [id number]) Current Condition History of Current Condition Onset Date 13 year history Current Complaints Post-surgical left ankle pain/ stiffness History of Current Condition Pt is a 44 year old female presenting two months s/p revision of hardware 13 years after original ankle injury. Pt reports originally fractured tib/fib 13 years ago slipping on ice, and at the time, underwent surgical repair. Ankle has continued to bother her since then, after recent imaging, was told that her hardware was coming loose, and the wrong screws may have been used, and a revision was needed. Pt underwent revision two months ago, and was non-weight bearing until one week ago, now cleared to ambulate in a walking boot. Pt admits walking around [place] on left leg has started to mess up my right knee. Pt in general very hyper mobile, has resulted inn multiple injuries to both ankles, knees , and hips. Pt notes she will likely need a revision of the hardware in her right ankle sometime next year. Has follow -up with surgeon in two weeks, is hoping for more clearance for weight-bearing. So far, has largely been doing ankle mobility/stretching at home. 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 in order to demonstrate improvement in functional ankle mobility and strength s/p surgical revision . LTG Duration 05/12/25 - Improving Assessment Summary Assessment ROM improving quite a bit, but continues to be limited with gait secondary to discomfort/ popping in joint. Strength improving, but still having some difficulty returning to work full-time. 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 A little more limited today following recent low back sprain, pt requested sitting in chair instead of table due to back. Physical Therapy Plan Frequency and Duration Frequency of Treatment 2x/Week Plan of Care Start Date 03/12/25 Plan of Care End Date 05/12/25 Therapeutic Interventions Therapeutic Interventions Balance Training,Gait Training ,Home Exercise Program,Joint Mobilizations,Manual Therapy, Neuromuscular Re-education, Patient/Caregiver Education, Self-Care/Home Management,Soft Tissue Mobilization, Therapeutic Activities, Therapeutic Exercises Modalities Cold Pack/Ice Massage,Hot Packs Next Visit Focus/Plan Next Note Type Treatment Note Next Visit Plan Consider SL eccentric heel raises when LLE recovered from recent ankle sprain. Review new HEP SL squat 4 step taps and ankle self-mob. Consider Y reach cones vs slider. Progress balance prn. POC: Ankle stretching and strengthening, progress weight bearing exercises when cleared Plan of Care Dates Plan of Care Start Date 03/12/25 Plan of Care End Date 05/12/25 Electronically Signed by: Jean Ogden, PT 03/12/25 0687 If you are in agreement with this Plan of Care, please return a signed and dated copy. I have reviewed this Plan of Care and certify that the skilled therapy services above are required to meet the patient?s needs. Physician Signature Date Printed Name and Credentials Clinical Instructor Signature Printed Name and Credentials
--- NOTE | 2025-03-14 13:48 | PT.OTN ---
Current Diagnoses Other chronic pain (03/14/25) Pain in left ankle and joints of left foot (03/14/25) Displaced bimalleolar fracture of left lower leg, subsequent encounter for closed fracture with malunion (03/14/25) Sprain of tibiofibular ligament of left ankle, sequela (03/14/25) Pain due to internal orthopedic prosthetic devices, implants and grafts, initial encounter (03/14/25) Physical Therapy Treatment Note PT-OP-A Visit Information Start: 12/13/24 14:27 Freq: Status: Active Protocol: Document 03/14/25 13:06 SP (Rec: 03/14/25 13:51 SP Laptop) Out-Patient Physical Therapy Visit Information Visit Information Visit Type Treatment Note Visit Note With pt's permission, Yoko CISNEROS observed treatment with direct supervision of Shannan CISNEROS. Visit Start Time 13:06 Visit Stop Time 13:48 Visit Number 15 Number of BUFFER CHROME Visits 1 Evaluation Information Evaluation Date 12/13/24 Precautions Precautions *pt reports cold intolerance* PT-OP-B Current Condition Start: 12/13/24 14:27 Freq: Status: Active Protocol: Document 12/13/24 13:45 DCW (Rec: 12/14/24 14:13 DCW [id number]) Current Condition History of Current Condition Onset Date 13 year history Current Complaints Post-surgical left ankle pain/ stiffness History of Current Condition Pt is a 44 year old female presenting two months s/p revision of hardware 13 years after original ankle injury. Pt reports originally fractured tib/fib 13 years ago slipping on ice, and at the time, underwent surgical repair. Ankle has continued to bother her since then, after recent imaging, was told that her hardware was coming loose, and the wrong screws may have been used, and a revision was needed. Pt underwent revision two months ago, and was non-weight bearing until one week ago, now cleared to ambulate in a walking boot. Pt admits walking around [place] on left leg has started to mess up my right knee. Pt in general very hyper mobile, has resulted inn multiple injuries to both ankles, knees , and hips. Pt notes she will likely need a revision of the hardware in her right ankle sometime next year. Has follow -up with surgeon in two weeks, is hoping for more clearance for weight-bearing. So far, has largely been doing ankle mobility/stretching at home. 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 PT-OP-C Subjective Start: 12/13/24 14:27 Freq: Status: Active Protocol: Document 03/14/25 13:06 SP (Rec: 03/14/25 13:51 SP Laptop) OP-PT Subjective Patient Comments Patient Comments Pt reports felt good after last tx. She reports her apt is smaller so challenged with how to adapt at home vs in PT. She works 3 days per week at about 6 hrs with seated rests on breaks. Pt stated last tx cleared for activity as tolerated and progress slowly. Reports her R knee felt stiff and was concerned it would give out. Is looking into injection in R knee to support pain and promote ROM with [employer]. PT-OP-F Manual Assessment Start: 12/13/24 14:27 Freq: Status: Active Protocol: Document 03/12/25 10:45 DCW (Rec: 03/12/25 10:56 DCW [id number]) Manual Assessments Soft Tissue Assessment Soft Tissue Mobility Assessment Mild edema along inferior aspect of both L malleoli PT-OP-J Posture/Palpation/Skin Start: 12/14/24 14:13 Freq: Status: Active Protocol: Document 12/13/24 13:45 DCW (Rec: 12/14/24 14:28 DCW [id number]) Skin Assessment Circumference Measurement Figure-8 Location Left ankle Measurement (Centimeters) 52.4 Comments Right ankle Figure-8 = 51cm PT-OP-K Range of Motion Start: 12/13/24 14:27 Freq: Status: Active Protocol: Document 03/12/25 10:45 DCW (Rec: 03/12/25 10:56 DCW [id number]) Ankle and Foot Goniometric Range of Motion Ankle and Foot Left Passive Testing Position Sitting Dorsiflexion with Knee Flexed 7 Dorsiflexion with Knee Extended 0 Plantarflexion 60 Inversion 50 Eversion 25 Left Active Testing Position Sitting Dorsiflexion with Knee Flexed 3 Inversion 32 Eversion 25 Comments DF with knee extended measured at -2? PT-OP-M Strength Start: 12/13/24 14:27 Freq: Status: Active Protocol: Document 03/12/25 10:45 DCW (Rec: 03/12/25 10:56 DCW [id number]) Ankle/Foot Strength Ankle and Foot Manual Muscle Testing Right Dorsiflexion (L4) 4+ Good+ Plantarflexion (S1) 4+ Good+ Inversion 4+ Good+ Eversion (S1) 4+ Good+ Left Dorsiflexion (L4) 4+ Good+ Plantarflexion (S1) 4 Good Inversion 4 Good Eversion (S1) 4 Good PT-OP-Q Treatments Start: 12/13/24 14:27 Freq: Status: Active Protocol: Document 03/14/25 13:06 SP (Rec: 03/14/25 13:51 SP Laptop) Gym Equipment Shuttle Recovery Bilateral Heel Raises Resistance 37# 1 navy band Reps/Time x20 in DF/PF range, then DF hold for calf stretch Uri 45 Unilateral Squats Details good form Resistance 37# Shuttle Recovery Platform Stable Reps/Time x20 Bilateral Squats Resistance 62#. 75# 3 navy bands Shuttle Recovery Platform Stable Reps/Time x20, 10 reps Shuttle Balance red chains Details WBOS, NBOS (2 between BLE knees touching), Stride, Lateral weight shift Comments wt shift HTs EC NBOS 30 sec- good form and corrections CG-5%A Next add balloon volley Therapeutic Exercises Standing Exercises SL slider Standing Exercise Name 12, 3, 6 oclock RLE Side left Resistance RLE slider Reps/Minutes 10x each way Comments VC's for small ROM, hip hinge. self-mobilization Standing Exercise Name ankle self-mobilization 4 step Side left Resistance Lvl 5 Tb at talus (looped around ankles) Reps/Minutes x5 ea Comments reviewed SL squat Standing Exercise Name REviewed fwd, bwd, lateral step down tap Side bilateral Equipment Used 4> 6 steps, rails for balance prn Reps/Minutes 10 reps each direction Comments tactile cue for LE alignment, hip hinge, eccentric control - more challengi PT-OP-T Assessment and Plan Start: 12/13/24 14:27 Freq: Status: Active Protocol: Document 03/14/25 13:06 SP (Rec: 03/14/25 13:51 SP Laptop) Physical Therapy Assessment Goals Two Impairment Pt unable to ambulate without walking boot Skilled Nursing Goal (LTG) Pt to progress through post-op precautions to return to WNL gait pattern without walking boot 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 Computer Analyst Supervisor Goal (LTG) Pt to demonstrate active ankle DF with knee extended to at least 5? in order to demonstrate improvement in functional ankle mobility and strength s/p surgical revision . LTG Duration 05/12/25 - Improving Assessment Summary Assessment Pt tolerated ther-ex treatments well. Added SL sliders to HEP for increased SLS time while incorporating knee and ankle mobility. Was able to increase step depth during step downs in multiple directions with decreased UE support. VC's hip hinge, center of gravity over MARIA ISABEL for increased stability to improve stair management. Physical Therapy Plan Frequency and Duration Frequency of Treatment 2x/Week Plan of Care Start Date 03/12/25 Plan of Care End Date 05/12/25 Therapeutic Interventions Therapeutic Interventions Balance Training,Gait Training ,Home Exercise Program,Joint Mobilizations,Manual Therapy, Neuromuscular Re-education, Patient/Caregiver Education, Self-Care/Home Management,Soft Tissue Mobilization, Therapeutic Activities, Therapeutic Exercises Modalities Cold Pack/Ice Massage,Hot Packs Next Visit Focus/Plan Next Note Type Treatment Note Next Visit Plan Consider SL eccentric heel raises when LLE recovered from recent ankle sprain. Review single leg activities. Progress balance prn. POC: Ankle stretching and strengthening, progress weight bearing exercises when cleared
--- NOTE | 2025-03-19 14:32 | PT.OTN ---
Current Diagnoses Other chronic pain (03/19/25) Pain in left ankle and joints of left foot (03/19/25) Displaced bimalleolar fracture of left lower leg, subsequent encounter for closed fracture with malunion (03/19/25) Sprain of tibiofibular ligament of left ankle, sequela (03/19/25) Pain due to internal orthopedic prosthetic devices, implants and grafts, initial encounter (03/19/25) Physical Therapy Treatment Note PT-OP-A Visit Information Start: 12/13/24 14:27 Freq: Status: Active Protocol: Document 03/19/25 13:45 DCW (Rec: 03/19/25 14:32 DCW [id number]) Out-Patient Physical Therapy Visit Information Visit Information Visit Type Treatment Note Visit Start Time 13:45 Visit Stop Time 14:30 Visit Number 16 Number of FOX FARMER Visits 0 Evaluation Information Evaluation Date 12/13/24 Precautions Precautions *pt reports cold intolerance* PT-OP-B Current Condition Start: 12/13/24 14:27 Freq: Status: Active Protocol: Document 12/13/24 13:45 DCW (Rec: 12/14/24 14:13 DCW [id number]) Current Condition History of Current Condition Onset Date 13 year history Current Complaints Post-surgical left ankle pain/ stiffness History of Current Condition Pt is a 44 year old female presenting two months s/p revision of hardware 13 years after original ankle injury. Pt reports originally fractured tib/fib 13 years ago slipping on ice, and at the time, underwent surgical repair. Ankle has continued to bother her since then, after recent imaging, was told that her hardware was coming loose, and the wrong screws may have been used, and a revision was needed. Pt underwent revision two months ago, and was non-weight bearing until one week ago, now cleared to ambulate in a walking boot. Pt admits walking around [place] on left leg has started to mess up my right knee. Pt in general very hyper mobile, has resulted inn multiple injuries to both ankles, knees , and hips. Pt notes she will likely need a revision of the hardware in her right ankle sometime next year. Has follow -up with surgeon in two weeks, is hoping for more clearance for weight-bearing. So far, has largely been doing ankle mobility/stretching at home. 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 PT-OP-C Subjective Start: 12/13/24 14:27 Freq: Status: Active Protocol: Document 03/19/25 13:45 DCW (Rec: 03/19/25 14:32 DCW [id number]) OP-PT Subjective Patient Comments Patient Comments Pt reports she had a seizure and passed out in her bathroom Jovan night, comes in with a large bump and bruises on her forehead. Notes ankle was unaffected, was sitting at the time. PT-OP-F Manual Assessment Start: 12/13/24 14:27 Freq: Status: Active Protocol: Document 03/12/25 10:45 DCW (Rec: 03/12/25 10:56 DCW [id number]) Manual Assessments Soft Tissue Assessment Soft Tissue Mobility Assessment Mild edema along inferior aspect of both L malleoli PT-OP-J Posture/Palpation/Skin Start: 12/14/24 14:13 Freq: Status: Active Protocol: Document 12/13/24 13:45 DCW (Rec: 12/14/24 14:28 DCW [id number]) Skin Assessment Circumference Measurement Figure-8 Location Left ankle Measurement (Centimeters) 52.4 Comments Right ankle Figure-8 = 51cm PT-OP-K Range of Motion Start: 12/13/24 14:27 Freq: Status: Active Protocol: Document 03/12/25 10:45 DCW (Rec: 03/12/25 10:56 DCW [id number]) Ankle and Foot Goniometric Range of Motion Ankle and Foot Left Passive Testing Position Sitting Dorsiflexion with Knee Flexed 7 Dorsiflexion with Knee Extended 0 Plantarflexion 60 Inversion 50 Eversion 25 Left Active Testing Position Sitting Dorsiflexion with Knee Flexed 3 Inversion 32 Eversion 25 Comments DF with knee extended measured at -2? PT-OP-M Strength Start: 12/13/24 14:27 Freq: Status: Active Protocol: Document 03/12/25 10:45 DCW (Rec: 03/12/25 10:56 DCW [id number]) Ankle/Foot Strength Ankle and Foot Manual Muscle Testing Right Dorsiflexion (L4) 4+ Good+ Plantarflexion (S1) 4+ Good+ Inversion 4+ Good+ Eversion (S1) 4+ Good+ Left Dorsiflexion (L4) 4+ Good+ Plantarflexion (S1) 4 Good Inversion 4 Good Eversion (S1) 4 Good PT-OP-Q Treatments Start: 12/13/24 14:27 Freq: Status: Active Protocol: Document 03/19/25 13:45 DCW (Rec: 03/19/25 14:32 DCW [id number]) Gym Equipment Shuttle Recovery Bilateral Heel Raises Resistance 37# 1 navy band Reps/Time x20 in DF/PF range Unilateral Squats Details good form Resistance 37# (1 [place]) Shuttle Recovery Platform Stable Reps/Time x20 Bilateral Squats Resistance 75# (3 [place]) Shuttle Recovery Platform Stable Reps/Time x20, 10 reps Shuttle Balance red chains Details WBOS (DF/PF), Lateral weight shift Therapeutic Exercises Other Exercises Heel Raises Other Exercise Name 1. DL heel raise Side bilateral Reps/Minutes x10 ea Comments Trials SL eccentric, still too difficult Manual Therapy Treatment Consent Patient gave verbal consent for manual Yes treatment Soft Tissue Mobilization L calf Body Location Uri Gastroc, Soleus, Achilles tenon Mobilization Type Cross-Friction,Rolling, Strumming,Sustained Pressure Intensity/Depth Moderate Body Position Sitting Comments manual stretch to gastroc and soleus. Cross-friction to Achilles with functional movement. Joint Mobilizations Ankle Joint Left Ankle Direction P<->A, Inv/Ev Body Position Sitting Comments cues for knee alignment Neuro Re-Education Treatment Balance Activities SLS Details SLS Surface BOSU PT-OP-T Assessment and Plan Start: 12/13/24 14:27 Freq: Status: Active Protocol: Document 03/19/25 13:45 DCW (Rec: 03/19/25 14:32 DCW [id number]) Physical Therapy Assessment Impairments Impairments Activity Tolerance,Balance, Functional Activities, Functional Mobility,Gait,Pain, ROM,Soft Tissue Mobility, Strength Goals Two Impairment Pt unable to ambulate without walking boot Smelter Charger Goal (LTG) Pt to progress through post-op precautions to return to WNL gait pattern without walking boot 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 Penitentiary Goal (LTG) Pt to demonstrate active ankle DF with knee extended to at least 5? in order to demonstrate improvement in functional ankle mobility and strength s/p surgical revision . LTG Duration 05/12/25 - Improving Assessment Summary Assessment Pt continues to progress well. Denies recent pain, is able to perform work activities ( still at a reduced ~5-6 hour shift) without discomfort. Continue to focus on ankle mobility and gait. Physical Therapy Plan Frequency and Duration Frequency of Treatment 2x/Week Plan of Care Start Date 03/12/25 Plan of Care End Date 05/12/25 Therapeutic Interventions Therapeutic Interventions Balance Training,Gait Training ,Home Exercise Program,Joint Mobilizations,Manual Therapy, Neuromuscular Re-education, Patient/Caregiver Education, Self-Care/Home Management,Soft Tissue Mobilization, Therapeutic Activities, Therapeutic Exercises Modalities Cold Pack/Ice Massage,Hot Packs Next Visit Focus/Plan Next Note Type Treatment Note Next Visit Plan Review single leg activities. Progress balance prn. POC: Ankle stretching and strengthening, progress weight bearing exercises when cleared
--- NOTE | 2025-03-21 12:29 | PT.OTN ---
Current Diagnoses Other chronic pain (03/21/25) Pain in left ankle and joints of left foot (03/21/25) Displaced bimalleolar fracture of left lower leg, subsequent encounter for closed fracture with malunion (03/21/25) Sprain of tibiofibular ligament of left ankle, sequela (03/21/25) Pain due to internal orthopedic prosthetic devices, implants and grafts, initial encounter (03/21/25) Physical Therapy Treatment Note PT-OP-A Visit Information Start: 12/13/24 14:27 Freq: Status: Active Protocol: Document 03/21/25 10:41 AB (Rec: 03/21/25 12:24 AB Laptop) Out-Patient Physical Therapy Visit Information Visit Information Visit Type Treatment Note Visit Note [email or web address] Access Code: [email or web address] Visit Start Time 11:33 Visit Stop Time 12:16 Visit Number 17 Number of MACHINE SET UP Visits 1 Evaluation Information Evaluation Date 12/13/24 Precautions Precautions *pt reports cold intolerance* PT-OP-B Current Condition Start: 12/13/24 14:27 Freq: Status: Active Protocol: Document 12/13/24 13:45 DCW (Rec: 12/14/24 14:13 DCW [id number]) Current Condition History of Current Condition Onset Date 13 year history Current Complaints Post-surgical left ankle pain/ stiffness History of Current Condition Pt is a 44 year old female presenting two months s/p revision of hardware 13 years after original ankle injury. Pt reports originally fractured tib/fib 13 years ago slipping on ice, and at the time, underwent surgical repair. Ankle has continued to bother her since then, after recent imaging, was told that her hardware was coming loose, and the wrong screws may have been used, and a revision was needed. Pt underwent revision two months ago, and was non-weight bearing until one week ago, now cleared to ambulate in a walking boot. Pt admits walking around [place] on left leg has started to mess up my right knee. Pt in general very hyper mobile, has resulted inn multiple injuries to both ankles, knees , and hips. Pt notes she will likely need a revision of the hardware in her right ankle sometime next year. Has follow -up with surgeon in two weeks, is hoping for more clearance for weight-bearing. So far, has largely been doing ankle mobility/stretching at home. 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 PT-OP-C Subjective Start: 12/13/24 14:27 Freq: Status: Active Protocol: Document 03/21/25 10:41 AB (Rec: 03/21/25 12:24 AB Laptop) OP-PT Subjective Patient Comments Patient Comments Candle rates pain 1-2/10 L ankle ambulating into session without device lasha wrap on ankle. Patient reports ankle is the same. Dec AROM Df L>R seated start of session. PT-OP-F Manual Assessment Start: 12/13/24 14:27 Freq: Status: Active Protocol: Document 03/12/25 10:45 DCW (Rec: 03/12/25 10:56 DCW [id number]) Manual Assessments Soft Tissue Assessment Soft Tissue Mobility Assessment Mild edema along inferior aspect of both L malleoli PT-OP-J Posture/Palpation/Skin Start: 12/14/24 14:13 Freq: Status: Active Protocol: Document 12/13/24 13:45 DCW (Rec: 12/14/24 14:28 DCW [id number]) Skin Assessment Circumference Measurement Figure-8 Location Left ankle Measurement (Centimeters) 52.4 Comments Right ankle Figure-8 = 51cm PT-OP-K Range of Motion Start: 12/13/24 14:27 Freq: Status: Active Protocol: Document 03/12/25 10:45 DCW (Rec: 03/12/25 10:56 DCW [id number]) Ankle and Foot Goniometric Range of Motion Ankle and Foot Left Passive Testing Position Sitting Dorsiflexion with Knee Flexed 7 Dorsiflexion with Knee Extended 0 Plantarflexion 60 Inversion 50 Eversion 25 Left Active Testing Position Sitting Dorsiflexion with Knee Flexed 3 Inversion 32 Eversion 25 Comments DF with knee extended measured at -2? PT-OP-M Strength Start: 12/13/24 14:27 Freq: Status: Active Protocol: Document 03/12/25 10:45 DCW (Rec: 03/12/25 10:56 DCW [id number]) Ankle/Foot Strength Ankle and Foot Manual Muscle Testing Right Dorsiflexion (L4) 4+ Good+ Plantarflexion (S1) 4+ Good+ Inversion 4+ Good+ Eversion (S1) 4+ Good+ Left Dorsiflexion (L4) 4+ Good+ Plantarflexion (S1) 4 Good Inversion 4 Good Eversion (S1) 4 Good PT-OP-Q Treatments Start: 12/13/24 14:27 Freq: Status: Active Protocol: Document 03/21/25 10:41 AB (Rec: 03/21/25 12:24 AB Laptop) Therapeutic Exercises Sitting Exercises seated hip abd with band Sitting Exercise Name HEP Side bilateral Resistance level 4 band Reps/Minutes one min X 1 Comments verbal cues Standing Exercises mini squat Side bilateral Reps/Minutes X5 X 2 Comments verbal and visual cues, vika for pain, patient ed hip panchito calf stretch Standing Exercise Name gastrocnemius, soleus Side bilateral Equipment Used SANGEETA Reps/Minutes 60 sec X 2 then step through with UE support X 10 each LE Other Exercises Heel Raises Other Exercise Name 1. Eccentric 2. DL heel raise Reps/Minutes 1 X 2 then X 5 2. X 10 Comments verbal cues to lower heels to floor, monitored for pain Manual Therapy Treatment Consent Patient gave verbal consent for manual Yes treatment Soft Tissue Mobilization L calf Body Location Uri Gastroc, Soleus, Achilles tenon Mobilization Type Cross-Friction,Rolling, Strumming,Sustained Pressure Intensity/Depth Moderate Body Position Prone Joint Mobilizations Ankle Joint Left Ankle Direction Mulligan with movement TC mobs Grade II Body Position Standing Reps/Duration X 10 X 3 Comments verbal cues and visual cues, monitored for pain Neuro Re-Education Treatment Balance Activities SLS Details SLS with CGA without UE use pre and post glute med activation Reps/Duration X 3 X 2 PT-OP-T Assessment and Plan Start: 12/13/24 14:27 Freq: Status: Active Protocol: Document 03/21/25 10:41 AB (Rec: 03/21/25 12:24 AB Laptop) Physical Therapy Assessment Goals Two Impairment Pt unable to ambulate without walking boot Usp Goal (LTG) Pt to progress through post-op precautions to return to WNL gait pattern without walking boot in 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 Cutter Operator Helper Goal (LTG) Pt to demonstrate active ankle DF with knee extended to at least 5? in order to demonstrate improvement in functional ankle mobility and strength s/p surgical revision . LTG Duration 05/12/25 - Improving Assessment Summary Assessment Patient reports she can feel it end of session, but it is not pain. Nicanor ambulates out of session with an improved heel toe pattern, increased DF terminal stance/not yet WNL. Reports a little pain with eccentric heel raise with increased UE use. Improved SLS L LE post glute med activation. Physical Therapy Plan Frequency and Duration Frequency of Treatment 2x/Week Plan of Care Start Date 03/12/25 Plan of Care End Date 05/12/25 Next Visit Focus/Plan Next Note Type Treatment Note Next Visit Plan Review single leg activities. Progress balance prn. POC: Ankle stretching and strengthening,
--- NOTE | 2025-03-26 12:16 | PT.OTN ---
Current Diagnoses Other chronic pain (03/26/25) Pain in left ankle and joints of left foot (03/26/25) Displaced bimalleolar fracture of left lower leg, subsequent encounter for closed fracture with malunion (03/26/25) Sprain of tibiofibular ligament of left ankle, sequela (03/26/25) Pain due to internal orthopedic prosthetic devices, implants and grafts, initial encounter (03/26/25) Physical Therapy Treatment Note PT-OP-A Visit Information Start: 12/13/24 14:27 Freq: Status: Active Protocol: Document 03/26/25 11:30 DCW (Rec: 03/26/25 12:16 DCW [id number]) Out-Patient Physical Therapy Visit Information Visit Information Visit Type Treatment Note Visit Start Time 11:30 Visit Stop Time 12:15 Visit Number 18 Number of COPY CENTER SPECIALIST Visits 0 Evaluation Information Evaluation Date 12/13/24 Precautions Precautions *pt reports cold intolerance* PT-OP-B Current Condition Start: 12/13/24 14:27 Freq: Status: Active Protocol: Document 12/13/24 13:45 DCW (Rec: 12/14/24 14:13 DCW [id number]) Current Condition History of Current Condition Onset Date 13 year history Current Complaints Post-surgical left ankle pain/ stiffness History of Current Condition Pt is a 44 year old female presenting two months s/p revision of hardware 13 years after original ankle injury. Pt reports originally fractured tib/fib 13 years ago slipping on ice, and at the time, underwent surgical repair. Ankle has continued to bother her since then, after recent imaging, was told that her hardware was coming loose, and the wrong screws may have been used, and a revision was needed. Pt underwent revision two months ago, and was non-weight bearing until one week ago, now cleared to ambulate in a walking boot. Pt admits walking around [place] on left leg has started to mess up my right knee. Pt in general very hyper mobile, has resulted inn multiple injuries to both ankles, knees , and hips. Pt notes she will likely need a revision of the hardware in her right ankle sometime next year. Has follow -up with surgeon in two weeks, is hoping for more clearance for weight-bearing. So far, has largely been doing ankle mobility/stretching at home. 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 PT-OP-C Subjective Start: 12/13/24 14:27 Freq: Status: Active Protocol: Document 03/26/25 11:30 DCW (Rec: 03/26/25 12:16 DCW [id number]) OP-PT Subjective Patient Comments Patient Comments Pt notes no major changes, but I think it's feeling better all the time. PT-OP-F Manual Assessment Start: 12/13/24 14:27 Freq: Status: Active Protocol: Document 03/12/25 10:45 DCW (Rec: 03/12/25 10:56 DCW [id number]) Manual Assessments Soft Tissue Assessment Soft Tissue Mobility Assessment Mild edema along inferior aspect of both L malleoli PT-OP-J Posture/Palpation/Skin Start: 12/14/24 14:13 Freq: Status: Active Protocol: Document 12/13/24 13:45 DCW (Rec: 12/14/24 14:28 DCW [id number]) Skin Assessment Circumference Measurement Figure-8 Location Left ankle Measurement (Centimeters) 52.4 Comments Right ankle Figure-8 = 51cm PT-OP-K Range of Motion Start: 12/13/24 14:27 Freq: Status: Active Protocol: Document 03/12/25 10:45 DCW (Rec: 03/12/25 10:56 DCW [id number]) Ankle and Foot Goniometric Range of Motion Ankle and Foot Left Passive Testing Position Sitting Dorsiflexion with Knee Flexed 7 Dorsiflexion with Knee Extended 0 Plantarflexion 60 Inversion 50 Eversion 25 Left Active Testing Position Sitting Dorsiflexion with Knee Flexed 3 Inversion 32 Eversion 25 Comments DF with knee extended measured at -2? PT-OP-M Strength Start: 12/13/24 14:27 Freq: Status: Active Protocol: Document 03/12/25 10:45 DCW (Rec: 03/12/25 10:56 DCW [id number]) Ankle/Foot Strength Ankle and Foot Manual Muscle Testing Right Dorsiflexion (L4) 4+ Good+ Plantarflexion (S1) 4+ Good+ Inversion 4+ Good+ Eversion (S1) 4+ Good+ Left Dorsiflexion (L4) 4+ Good+ Plantarflexion (S1) 4 Good Inversion 4 Good Eversion (S1) 4 Good PT-OP-Q Treatments Start: 12/13/24 14:27 Freq: Status: Active Protocol: Document 03/26/25 11:30 DCW (Rec: 03/26/25 12:16 DCW [id number]) Gym Equipment Shuttle Recovery Plyometric Hopping Details [id number] hopping Resistance 25# Bilateral Heel Raises Resistance 37# 1 navy band Reps/Time x20 in DF/PF range Unilateral Squats Details good form Resistance 37# (2 Bartley) Shuttle Recovery Platform Stable Reps/Time x20 Bilateral Squats Resistance 75# (3 Bartley) Shuttle Recovery Platform Stable Reps/Time x20, 10 reps Shuttle Balance red chains Details WBOS (DF/PF), Staggered Therapeutic Exercises Standing Exercises calf stretch Standing Exercise Name gastrocnemius, soleus Side bilateral Equipment Used SANGEETA Reps/Minutes 60 sec X 2 then step through with UE support X 10 each LE Other Exercises Step-ups Other Exercise Name Step-downs Side left Equipment Used 6 step, // bars Manual Therapy Treatment Consent Patient gave verbal consent for manual Yes treatment Soft Tissue Mobilization L calf Body Location Uri Gastroc, Soleus, Achilles tenon Mobilization Type Cross-Friction,Rolling, Strumming,Sustained Pressure Intensity/Depth Moderate Body Position Sitting Joint Mobilizations Ankle Joint Left Ankle Direction P<->A, Inv/Ev Grade II Body Position Sitting Neuro Re-Education Treatment Balance Activities SLS Details SLS Surface AirEx PT-OP-T Assessment and Plan Start: 12/13/24 14:27 Freq: Status: Active Protocol: Document 03/26/25 11:30 DCW (Rec: 03/26/25 12:16 DCW [id number]) Physical Therapy Assessment Impairments Impairments Activity Tolerance,Balance, Functional Activities, Functional Mobility,Gait,Pain, ROM,Soft Tissue Mobility, Strength Goals Two Impairment Pt unable to ambulate without walking boot Contact Clerk Goal (LTG) Pt to progress through post-op precautions to return to WNL gait pattern without walking boot 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 Contact Clerk Goal (LTG) Pt to demonstrate active ankle DF with knee extended to at least 5? in order to demonstrate improvement in functional ankle mobility and strength s/p surgical revision . LTG Duration 05/12/25 - Improving Assessment Summary Assessment Pt continues to report improvements with functional mobility, doing better tolerating shifts at work. Continues to increase riding her bike. Showing increased ankle ROM. Continue to focus on strengthening and mobility. Physical Therapy Plan Frequency and Duration Frequency of Treatment 2x/Week Plan of Care Start Date 03/12/25 Plan of Care End Date 05/12/25 Therapeutic Interventions Therapeutic Interventions Balance Training,Gait Training ,Home Exercise Program,Joint Mobilizations,Manual Therapy, Neuromuscular Re-education, Patient/Caregiver Education, Self-Care/Home Management,Soft Tissue Mobilization, Therapeutic Activities, Therapeutic Exercises Modalities Cold Pack/Ice Massage,Hot Packs Next Visit Focus/Plan Next Note Type Treatment Note Next Visit Plan Review single leg activities. Progress balance prn. POC: Ankle stretching and strengthening, progress weight bearing exercises when cleared
--- NOTE | 2025-03-28 12:21 | PT.OTN ---
Current Diagnoses Other chronic pain (03/28/25) Pain in left ankle and joints of left foot (03/28/25) Displaced bimalleolar fracture of left lower leg, subsequent encounter for closed fracture with malunion (03/28/25) Sprain of tibiofibular ligament of left ankle, sequela (03/28/25) Pain due to internal orthopedic prosthetic devices, implants and grafts, initial encounter (03/28/25) Physical Therapy Treatment Note PT-OP-A Visit Information Start: 12/13/24 14:27 Freq: Status: Active Protocol: Document 03/28/25 11:05 AB (Rec: 03/28/25 12:20 AB Laptop) Out-Patient Physical Therapy Visit Information Visit Information Visit Type Treatment Note Visit Note [email or web address] Access Code: [email or web address] Visit Start Time 11:31 Visit Stop Time 12:17 Visit Number 19 Number of SNUFF PACKING MACHINE OPERATOR Visits 1 Evaluation Information Evaluation Date 12/13/24 Precautions Precautions *pt reports cold intolerance* PT-OP-B Current Condition Start: 12/13/24 14:27 Freq: Status: Active Protocol: Document 12/13/24 13:45 DCW (Rec: 12/14/24 14:13 DCW [id number]) Current Condition History of Current Condition Onset Date 13 year history Current Complaints Post-surgical left ankle pain/ stiffness History of Current Condition Pt is a 44 year old female presenting two months s/p revision of hardware 13 years after original ankle injury. Pt reports originally fractured tib/fib 13 years ago slipping on ice, and at the time, underwent surgical repair. Ankle has continued to bother her since then, after recent imaging, was told that her hardware was coming loose, and the wrong screws may have been used, and a revision was needed. Pt underwent revision two months ago, and was non-weight bearing until one week ago, now cleared to ambulate in a walking boot. Pt admits walking around [place] on left leg has started to mess up my right knee. Pt in general very hyper mobile, has resulted inn multiple injuries to both ankles, knees , and hips. Pt notes she will likely need a revision of the hardware in her right ankle sometime next year. Has follow -up with surgeon in two weeks, is hoping for more clearance for weight-bearing. So far, has largely been doing ankle mobility/stretching at home. 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 PT-OP-C Subjective Start: 12/13/24 14:27 Freq: Status: Active Protocol: Document 03/28/25 11:05 AB (Rec: 03/28/25 12:20 AB Laptop) OP-PT Subjective Patient Comments Patient Comments Patient reports working [employer] this week, reports having no pain start of session. PT-OP-F Manual Assessment Start: 12/13/24 14:27 Freq: Status: Active Protocol: Document 03/12/25 10:45 DCW (Rec: 03/12/25 10:56 DCW [id number]) Manual Assessments Soft Tissue Assessment Soft Tissue Mobility Assessment Mild edema along inferior aspect of both L malleoli PT-OP-J Posture/Palpation/Skin Start: 12/14/24 14:13 Freq: Status: Active Protocol: Document 12/13/24 13:45 DCW (Rec: 12/14/24 14:28 DCW [id number]) Skin Assessment Circumference Measurement Figure-8 Location Left ankle Measurement (Centimeters) 52.4 Comments Right ankle Figure-8 = 51cm PT-OP-K Range of Motion Start: 12/13/24 14:27 Freq: Status: Active Protocol: Document 03/12/25 10:45 DCW (Rec: 03/12/25 10:56 DCW [id number]) Ankle and Foot Goniometric Range of Motion Ankle and Foot Left Passive Testing Position Sitting Dorsiflexion with Knee Flexed 7 Dorsiflexion with Knee Extended 0 Plantarflexion 60 Inversion 50 Eversion 25 Left Active Testing Position Sitting Dorsiflexion with Knee Flexed 3 Inversion 32 Eversion 25 Comments DF with knee extended measured at -2? PT-OP-M Strength Start: 12/13/24 14:27 Freq: Status: Active Protocol: Document 03/12/25 10:45 DCW (Rec: 03/12/25 10:56 DCW [id number]) Ankle/Foot Strength Ankle and Foot Manual Muscle Testing Right Dorsiflexion (L4) 4+ Good+ Plantarflexion (S1) 4+ Good+ Inversion 4+ Good+ Eversion (S1) 4+ Good+ Left Dorsiflexion (L4) 4+ Good+ Plantarflexion (S1) 4 Good Inversion 4 Good Eversion (S1) 4 Good PT-OP-Q Treatments Start: 12/13/24 14:27 Freq: Status: Active Protocol: Document 03/28/25 11:05 AB (Rec: 03/28/25 12:20 AB Laptop) Therapeutic Exercises Standing Exercises glute med isometric Side bilateral Reps/Minutes one minute each LE Comments verbal and visual cues calf stretch Standing Exercise Name gastrocnemius, soleus Side bilateral Equipment Used SANGEETA Reps/Minutes 60 sec X 2 then step through with UE support X 10 each LE Other Exercises step down Other Exercise Name 4 inch step bilateral UE use Equipment Used with mirror Reps/Minutes X10 X 2 Comments Verbal and visual cues for buttocks back, miror for avoiding hip drop Heel Raises Other Exercise Name 1. L LE Eccentric Reps/Minutes 1. X10 Comments verbal cues to lower heels to floor, monitored for pain Manual Therapy Treatment Consent Patient gave verbal consent for manual Yes treatment Soft Tissue Mobilization L calf Body Location Uri Gastroc, Soleus, Achilles tenon Mobilization Type Cross-Friction,Rolling, Strumming,Sustained Pressure Intensity/Depth Moderate Body Position Prone Joint Mobilizations Ankle Joint Left Ankle Direction Mulligan with movement TC mobs Grade III Body Position Standing Reps/Duration X 10 X 3 PT-OP-T Assessment and Plan Start: 12/13/24 14:27 Freq: Status: Active Protocol: Document 03/28/25 11:05 AB (Rec: 03/28/25 12:20 AB Laptop) Physical Therapy Assessment Goals Two Impairment Pt unable to ambulate without walking boot [facility] Goal (LTG) Pt to progress through post-op precautions to return to WNL gait pattern without walking boot 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 [facility] Goal (LTG) Pt to demonstrate active ankle DF with knee extended to at least 5? in order to demonstrate improvement in functional ankle mobility and strength s/p surgical revision . LTG Duration 05/12/25 - Improving Assessment Summary Assessment Nicanor reports feeling good end of session. Post manual and exercise L great toe .5 cm from wall with knee too wall PROM body over ankle DF of 1.5 deg. Physical Therapy Plan Frequency and Duration Frequency of Treatment 2x/Week Plan of Care Start Date 03/12/25 Plan of Care End Date 05/12/25 Next Visit Focus/Plan Next Note Type Treatment Note Next Visit Plan Review single leg activities. Progress balance prn. POC: Ankle stretching and strengthening
--- NOTE | 2025-04-06 12:25 | PT.OTN ---
Current Diagnoses Other chronic pain (04/06/25) Pain in left ankle and joints of left foot (04/06/25) Displaced bimalleolar fracture of left lower leg, subsequent encounter for closed fracture with malunion (04/06/25) Sprain of tibiofibular ligament of left ankle, sequela (04/06/25) Pain due to internal orthopedic prosthetic devices, implants and grafts, initial encounter (04/06/25) Physical Therapy Treatment Note PT-OP-A Visit Information Start: 12/13/24 14:27 Freq: Status: Active Protocol: Document 04/06/25 11:29 AB (Rec: 04/06/25 12:20 AB Laptop) Out-Patient Physical Therapy Visit Information Visit Information Visit Type Treatment Note Visit Note [email or web address] Access Code: [email or web address] Visit Start Time 11:36 Visit Stop Time 12:17 Visit Number 20 Number of INTAKE MANAGER Visits 2 Evaluation Information Evaluation Date 12/13/24 Precautions Precautions *pt reports cold intolerance* PT-OP-B Current Condition Start: 12/13/24 14:27 Freq: Status: Active Protocol: Document 12/13/24 13:45 DCW (Rec: 12/14/24 14:13 DCW [id number]) Current Condition History of Current Condition Onset Date 13 year history Current Complaints Post-surgical left ankle pain/ stiffness History of Current Condition Pt is a 44 year old female presenting two months s/p revision of hardware 13 years after original ankle injury. Pt reports originally fractured tib/fib 13 years ago slipping on ice, and at the time, underwent surgical repair. Ankle has continued to bother her since then, after recent imaging, was told that her hardware was coming loose, and the wrong screws may have been used, and a revision was needed. Pt underwent revision two months ago, and was non-weight bearing until one week ago, now cleared to ambulate in a walking boot. Pt admits walking around [place] on left leg has started to mess up my right knee. Pt in general very hyper mobile, has resulted inn multiple injuries to both ankles, knees , and hips. Pt notes she will likely need a revision of the hardware in her right ankle sometime next year. Has follow -up with surgeon in two weeks, is hoping for more clearance for weight-bearing. So far, has largely been doing ankle mobility/stretching at home. 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 PT-OP-C Subjective Start: 12/13/24 14:27 Freq: Status: Active Protocol: Document 04/06/25 11:29 AB (Rec: 04/06/25 12:20 AB Laptop) OP-PT Subjective Patient Comments Patient Comments Patient reports she feels she is getting stronger, was able to carry daughter from bedroom to the couch and didn't hurt. Patient reports the knee is stiff and the ankle is sore end of day. R knee rests at 3 deg hyper extension to 125 cdeg AROM knee flexion ( c/o R knee stiffness). PT-OP-F Manual Assessment Start: 12/13/24 14:27 Freq: Status: Active Protocol: Document 03/12/25 10:45 DCW (Rec: 03/12/25 10:56 DCW [id number]) Manual Assessments Soft Tissue Assessment Soft Tissue Mobility Assessment Mild edema along inferior aspect of both L malleoli PT-OP-J Posture/Palpation/Skin Start: 12/14/24 14:13 Freq: Status: Active Protocol: Document 12/13/24 13:45 DCW (Rec: 12/14/24 14:28 DCW [id number]) Skin Assessment Circumference Measurement Figure-8 Location Left ankle Measurement (Centimeters) 52.4 Comments Right ankle Figure-8 = 51cm PT-OP-K Range of Motion Start: 12/13/24 14:27 Freq: Status: Active Protocol: Document 03/12/25 10:45 DCW (Rec: 03/12/25 10:56 DCW [id number]) Ankle and Foot Goniometric Range of Motion Ankle and Foot Left Passive Testing Position Sitting Dorsiflexion with Knee Flexed 7 Dorsiflexion with Knee Extended 0 Plantarflexion 60 Inversion 50 Eversion 25 Left Active Testing Position Sitting Dorsiflexion with Knee Flexed 3 Inversion 32 Eversion 25 Comments DF with knee extended measured at -2? PT-OP-M Strength Start: 12/13/24 14:27 Freq: Status: Active Protocol: Document 03/12/25 10:45 DCW (Rec: 03/12/25 10:56 DCW [id number]) Ankle/Foot Strength Ankle and Foot Manual Muscle Testing Right Dorsiflexion (L4) 4+ Good+ Plantarflexion (S1) 4+ Good+ Inversion 4+ Good+ Eversion (S1) 4+ Good+ Left Dorsiflexion (L4) 4+ Good+ Plantarflexion (S1) 4 Good Inversion 4 Good Eversion (S1) 4 Good PT-OP-Q Treatments Start: 12/13/24 14:27 Freq: Status: Active Protocol: Document 04/06/25 11:29 AB (Rec: 04/06/25 12:20 AB Laptop) Therapeutic Exercises Standing Exercises calf stretch Standing Exercise Name gastrocnemius, soleus Side bilateral Equipment Used SANGEETA Reps/Minutes 60 sec X 2 then step through with UE support X 10 each LE Other Exercises step down Other Exercise Name 4 inch step bilateral UE use Side bilateral Reps/Minutes X 4 and X 6 Comments Verbal and visual cues for buttocks back Heel Raises Other Exercise Name 1. L LE Eccentric 2 bilateral heel raise on step Reps/Minutes 1. X 4 Comments verbal cues to lower heels to floor, monitored for pain Manual Therapy Treatment Consent Patient gave verbal consent for manual Yes treatment Soft Tissue Mobilization L calf Body Location Uri Gastroc, Soleus, Achilles tenon Mobilization Type Cross-Friction,Rolling, Strumming,Sustained Pressure Intensity/Depth Moderate Body Position Prone Comments cupping gastroc and soleus with AROM DF PF X 15 each Joint Mobilizations Ankle Joint Left Ankle Direction Mulligan with movement TC mobs Grade III Body Position Standing Reps/Duration X 10 X 3 PT-OP-T Assessment and Plan Start: 12/13/24 14:27 Freq: Status: Active Protocol: Document 04/06/25 11:29 AB (Rec: 04/06/25 12:20 AB Laptop) Physical Therapy Assessment Goals Two Impairment Pt unable to ambulate without walking boot Housing Counselor Goal (LTG) Pt to progress through post-op precautions to return to WNL gait pattern without walking boot in order to 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 Housing Counselor Goal (LTG) Pt to demonstrate active ankle DF with knee extended to at least 5? in order to demonstrate improvement in functional ankle mobility and strength s/p surgical revision . LTG Duration 05/12/25 - Improving Assessment Summary Assessment Nicanor reports right knee is left stiff and no pain, but does have muscle soreness L ankle end of session. Physical Therapy Plan Frequency and Duration Frequency of Treatment 2x/Week Plan of Care Start Date 03/12/25 Plan of Care End Date 05/12/25 Next Visit Focus/Plan Next Note Type Treatment Note Next Visit Plan Review single leg activities. Progress balance prn. POC: Ankle stretching and strengthening
--- NOTE | 2025-04-12 14:28 | PT.OTN ---
Current Diagnoses Other chronic pain (04/12/25) Pain in left ankle and joints of left foot (04/12/25) Displaced bimalleolar fracture of left lower leg, subsequent encounter for closed fracture with malunion (04/12/25) Sprain of tibiofibular ligament of left ankle, sequela (04/12/25) Pain due to internal orthopedic prosthetic devices, implants and grafts, initial encounter (04/12/25) Physical Therapy Treatment Note PT-OP-A Visit Information Start: 12/13/24 14:27 Freq: Status: Active Protocol: Document 04/12/25 13:45 DCW (Rec: 04/12/25 14:28 DCW [id number]) Out-Patient Physical Therapy Visit Information Visit Information Visit Type Treatment Note Visit Start Time 13:45 Visit Stop Time 14:30 Visit Number 21 Number of SOFTWARE REQUIREMENTS ENGINEER Visits 0 Evaluation Information Evaluation Date 12/13/24 Precautions Precautions *pt reports cold intolerance* PT-OP-B Current Condition Start: 12/13/24 14:27 Freq: Status: Active Protocol: Document 12/13/24 13:45 DCW (Rec: 12/14/24 14:13 DCW [id number]) Current Condition History of Current Condition Onset Date 13 year history Current Complaints Post-surgical left ankle pain/ stiffness History of Current Condition Pt is a 44 year old female presenting two months s/p revision of hardware 13 years after original ankle injury. Pt reports originally fractured tib/fib 13 years ago slipping on ice, and at the time, underwent surgical repair. Ankle has continued to bother her since then, after recent imaging, was told that her hardware was coming loose, and the wrong screws may have been used, and a revision was needed. Pt underwent revision two months ago, and was non-weight bearing until one week ago, now cleared to ambulate in a walking boot. Pt admits walking around [place] on left leg has started to mess up my right knee. Pt in general very hyper mobile, has resulted inn multiple injuries to both ankles, knees , and hips. Pt notes she will likely need a revision of the hardware in her right ankle sometime next year. Has follow -up with surgeon in two weeks, is hoping for more clearance for weight-bearing. So far, has largely been doing ankle mobility/stretching at home. 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 PT-OP-C Subjective Start: 12/13/24 14:27 Freq: Status: Active Protocol: Document 04/12/25 13:45 DCW (Rec: 04/12/25 14:28 DCW [id number]) OP-PT Subjective Patient Comments Patient Comments Pt reports her ankle has been feeling quite good, still working three days a week, but able to pick up operator a shift here and there as needed. Continues to wear VALENCIA wrap pretty much all day. PT-OP-F Manual Assessment Start: 12/13/24 14:27 Freq: Status: Active Protocol: Document 03/12/25 10:45 DCW (Rec: 03/12/25 10:56 DCW [id number]) Manual Assessments Soft Tissue Assessment Soft Tissue Mobility Assessment Mild edema along inferior aspect of both L malleoli PT-OP-J Posture/Palpation/Skin Start: 12/14/24 14:13 Freq: Status: Active Protocol: Document 12/13/24 13:45 DCW (Rec: 12/14/24 14:28 DCW [id number]) Skin Assessment Circumference Measurement Figure-8 Location Left ankle Measurement (Centimeters) 52.4 Comments Right ankle Figure-8 = 51cm PT-OP-K Range of Motion Start: 12/13/24 14:27 Freq: Status: Active Protocol: Document 03/12/25 10:45 DCW (Rec: 03/12/25 10:56 DCW [id number]) Ankle and Foot Goniometric Range of Motion Ankle and Foot Left Passive Testing Position Sitting Dorsiflexion with Knee Flexed 7 Dorsiflexion with Knee Extended 0 Plantarflexion 60 Inversion 50 Eversion 25 Left Active Testing Position Sitting Dorsiflexion with Knee Flexed 3 Inversion 32 Eversion 25 Comments DF with knee extended measured at -2? PT-OP-M Strength Start: 12/13/24 14:27 Freq: Status: Active Protocol: Document 03/12/25 10:45 DCW (Rec: 03/12/25 10:56 DCW [id number]) Ankle/Foot Strength Ankle and Foot Manual Muscle Testing Right Dorsiflexion (L4) 4+ Good+ Plantarflexion (S1) 4+ Good+ Inversion 4+ Good+ Eversion (S1) 4+ Good+ Left Dorsiflexion (L4) 4+ Good+ Plantarflexion (S1) 4 Good Inversion 4 Good Eversion (S1) 4 Good PT-OP-Q Treatments Start: 12/13/24 14:27 Freq: Status: Active Protocol: Document 04/12/25 13:45 DCW (Rec: 04/12/25 14:28 DCW [id number]) Gym Equipment Shuttle Recovery Bilateral Heel Raises Resistance 37# 1 navy band Reps/Time x20 in DF/PF range Unilateral Squats Details good form Resistance 37# (2 Sarepta) Shuttle Recovery Platform Stable Reps/Time x20 Bilateral Squats Resistance 75# (3 Sarepta) Shuttle Recovery Platform Stable Reps/Time x20, 10 reps Shuttle Balance red chains Details WBOS (DF/PF), Staggered, Lateral weight shift Manual Therapy Treatment Consent Patient gave verbal consent for manual Yes treatment Soft Tissue Mobilization L calf Body Location Uri Gastroc, Soleus, Achilles tenon Mobilization Type Cross-Friction,Rolling, Strumming,Sustained Pressure Intensity/Depth Moderate Body Position Sitting Neuro Re-Education Treatment Balance Activities SLS Details SLS Surface BOSU PT-OP-T Assessment and Plan Start: 12/13/24 14:27 Freq: Status: Active Protocol: Document 04/12/25 13:45 DCW (Rec: 04/12/25 14:28 DCW [id number]) Physical Therapy Assessment Impairments Impairments Activity Tolerance,Balance, Functional Activities, Functional Mobility,Gait,Pain, ROM,Soft Tissue Mobility, Strength Goals Two Impairment Pt unable to ambulate without walking boot Detention Goal (LTG) Pt to progress through post-op precautions to return to WNL gait pattern without walking boot in 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 in order to demonstrate improvement in functional ankle mobility and strength s/p surgical revision . LTG Duration 05/12/25 - Improving Assessment Summary Assessment Ankle ROM and joint stability continues to improve, pt increasing participation with normal activities, may be approaching discharge to independent [facility]. Will perform assessment next week, will discuss continuation vs discharge at that time. Physical Therapy Plan Frequency and Duration Frequency of Treatment 2x/Week Plan of Care Start Date 03/12/25 Plan of Care End Date 05/12/25 Next Visit Focus/Plan Next Note Type Treatment Note Next Visit Plan Review single leg activities. Progress balance prn. POC: Ankle stretching and strengthening
--- NOTE | 2025-04-13 16:44 | PT.OTN ---
Current Diagnoses Other chronic pain (04/13/25) Pain in left ankle and joints of left foot (04/13/25) Displaced bimalleolar fracture of left lower leg, subsequent encounter for closed fracture with malunion (04/13/25) Sprain of tibiofibular ligament of left ankle, sequela (04/13/25) Pain due to internal orthopedic prosthetic devices, implants and grafts, initial encounter (04/13/25) Physical Therapy Treatment Note PT-OP-A Visit Information Start: 12/13/24 14:27 Freq: Status: Active Protocol: Document 04/13/25 13:02 AB (Rec: 04/13/25 14:59 AB Laptop) Out-Patient Physical Therapy Visit Information Visit Information Visit Type Treatment Note Visit Note [email or web address] Access Code: [email or web address] Visit Start Time 13:04 Visit Stop Time 13:48 Visit Number 22 Number of JEWEL BEARING DRILLER Visits 1 Evaluation Information Evaluation Date 12/13/24 Precautions Precautions *pt reports cold intolerance* PT-OP-B Current Condition Start: 12/13/24 14:27 Freq: Status: Active Protocol: Document 12/13/24 13:45 DCW (Rec: 12/14/24 14:13 DCW [id number]) Current Condition History of Current Condition Onset Date 13 year history Current Complaints Post-surgical left ankle pain/ stiffness History of Current Condition Pt is a 44 year old female presenting two months s/p revision of hardware 13 years after original ankle injury. Pt reports originally fractured tib/fib 13 years ago slipping on ice, and at the time, underwent surgical repair. Ankle has continued to bother her since then, after recent imaging, was told that her hardware was coming loose, and the wrong screws may have been used, and a revision was needed. Pt underwent revision two months ago, and was non-weight bearing until one week ago, now cleared to ambulate in a walking boot. Pt admits walking around [place] on left leg has started to mess up my right knee. Pt in general very hyper mobile, has resulted inn multiple injuries to both ankles, knees , and hips. Pt notes she will likely need a revision of the hardware in her right ankle sometime next year. Has follow -up with surgeon in two weeks, is hoping for more clearance for weight-bearing. So far, has largely been doing ankle mobility/stretching at home. 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 PT-OP-C Subjective Start: 12/13/24 14:27 Freq: Status: Active Protocol: Document 04/13/25 13:02 AB (Rec: 04/13/25 14:59 AB Laptop) OP-PT Subjective Patient Comments Patient Comments Patient reports the ankle is good, a little sore, attributes to the weather. Patient report the ankle feels swollen. PT-OP-F Manual Assessment Start: 12/13/24 14:27 Freq: Status: Active Protocol: Document 03/12/25 10:45 DCW (Rec: 03/12/25 10:56 DCW [id number]) Manual Assessments Soft Tissue Assessment Soft Tissue Mobility Assessment Mild edema along inferior aspect of both L malleoli PT-OP-J Posture/Palpation/Skin Start: 12/14/24 14:13 Freq: Status: Active Protocol: Document 12/13/24 13:45 DCW (Rec: 12/14/24 14:28 DCW [id number]) Skin Assessment Circumference Measurement Figure-8 Location Left ankle Measurement (Centimeters) 52.4 Comments Right ankle Figure-8 = 51cm PT-OP-K Range of Motion Start: 12/13/24 14:27 Freq: Status: Active Protocol: Document 03/12/25 10:45 DCW (Rec: 03/12/25 10:56 DCW [id number]) Ankle and Foot Goniometric Range of Motion Ankle and Foot Left Passive Testing Position Sitting Dorsiflexion with Knee Flexed 7 Dorsiflexion with Knee Extended 0 Plantarflexion 60 Inversion 50 Eversion 25 Left Active Testing Position Sitting Dorsiflexion with Knee Flexed 3 Inversion 32 Eversion 25 Comments DF with knee extended measured at -2? PT-OP-M Strength Start: 12/13/24 14:27 Freq: Status: Active Protocol: Document 03/12/25 10:45 DCW (Rec: 03/12/25 10:56 DCW [id number]) Ankle/Foot Strength Ankle and Foot Manual Muscle Testing Right Dorsiflexion (L4) 4+ Good+ Plantarflexion (S1) 4+ Good+ Inversion 4+ Good+ Eversion (S1) 4+ Good+ Left Dorsiflexion (L4) 4+ Good+ Plantarflexion (S1) 4 Good Inversion 4 Good Eversion (S1) 4 Good PT-OP-Q Treatments Start: 12/13/24 14:27 Freq: Status: Active Protocol: Document 04/13/25 13:02 AB (Rec: 04/13/25 14:59 AB Laptop) Gym Equipment Shuttle Balance red Partly Details stagger with visual scanning and head turns Therapeutic Exercises Supine Exercises ankle pumps with LE's elevated Supine Exercise Name post manual hooklying Reps/Minutes one min Comments verbal cues to initiate Standing Exercises calf stretch Standing Exercise Name gastrocnemius, soleus Side bilateral Equipment Used SANGEETA Reps/Minutes 60 sec X 2 then step through with UE support X 10 each LE Other Exercises Heel Raises Other Exercise Name 1. L LE Eccentric on step Side bilateral Reps/Minutes X10 on step Comments Patient initiates with R LE calf stretch on step, Repeated cues for ecc HR Manual Therapy Treatment Consent Patient gave verbal consent for manual Yes treatment Soft Tissue Mobilization L calf Body Location Uri Gastroc, Soleus, Achilles tenon, Mobilization Type Cross-Friction,Instrument Assisted,Manual Lymphatic Drainage,Rolling,Strumming, Sustained Pressure Intensity/Depth Moderate Body Position Hooklying Comments prone also superficial Also cupping with AROM DF Joint Mobilizations Ankle Joint Left Ankle Direction Mulligan with movement TC mobs Grade III Body Position Standing Reps/Duration X 10 X 3 Neuro Re-Education Treatment Balance Activities BOSU Lunge Details BOSU Lunge Reps/Duration X 10 each LE Tilt Board Details Lateral weight shift Reps/Duration X12 SLS Details SLS Surface BOSU Reps/Duration 2 min of practice PT-OP-T Assessment and Plan Start: 12/13/24 14:27 Freq: Status: Active Protocol: Document 04/13/25 13:02 AB (Rec: 04/13/25 14:59 AB Laptop) Physical Therapy Assessment Goals Two Impairment Pt unable to ambulate without walking boot Quality Supervisor Goal (LTG) Pt to progress through post-op precautions to return to WNL gait pattern without walking boot 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 in order to demonstrate improvement in functional ankle mobility and strength s/p surgical revision . LTG Duration 05/12/25 - Improving Assessment Summary Assessment Nicanor reports a tiny bit of heel cord pain L LE end of session. Physical Therapy Plan Frequency and Duration Frequency of Treatment 2x/Week Plan of Care Start Date 03/12/25 Plan of Care End Date 05/12/25 Next Visit Focus/Plan Next Note Type Treatment Note Next Visit Plan Review single leg activities. Progress balance prn. POC: Ankle stretching and strengthening
--- NOTE | 2025-04-20 13:47 | PT.OTN ---
Current Diagnoses Other chronic pain (04/20/25) Pain in left ankle and joints of left foot (04/20/25) Displaced bimalleolar fracture of left lower leg, subsequent encounter for closed fracture with malunion (04/20/25) Sprain of tibiofibular ligament of left ankle, sequela (04/20/25) Pain due to internal orthopedic prosthetic devices, implants and grafts, initial encounter (04/20/25) Physical Therapy Treatment Note PT-OP-A Visit Information Start: 12/13/24 14:27 Freq: Status: Active Protocol: Document 04/20/25 13:44 KW (Rec: 04/20/25 13:46 KW Laptop) Out-Patient Physical Therapy Visit Information Visit Information Visit Type Treatment Note Visit Note brings in x-ray on phone, two broken screws. No new precautions by MD. Visit Start Time 11:30 Visit Stop Time 12:10 Precautions Precautions sz disorder PT-OP-B Current Condition Start: 12/13/24 14:27 Freq: Status: Active Protocol: Document 12/13/24 13:45 DCW (Rec: 12/14/24 14:13 DCW [id number]) Current Condition History of Current Condition Onset Date 13 year history Current Complaints Post-surgical left ankle pain/ stiffness History of Current Condition Pt is a 44 year old female presenting two months s/p revision of hardware 13 years after original ankle injury. Pt reports originally fractured tib/fib 13 years ago slipping on ice, and at the time, underwent surgical repair. Ankle has continued to bother her since then, after recent imaging, was told that her hardware was coming loose, and the wrong screws may have been used, and a revision was needed. Pt underwent revision two months ago, and was non-weight bearing until one week ago, now cleared to ambulate in a walking boot. Pt admits walking around [place] on left leg has started to mess up my right knee. Pt in general very hyper mobile, has resulted inn multiple injuries to both ankles, knees , and hips. Pt notes she will likely need a revision of the hardware in her right ankle sometime next year. Has follow -up with surgeon in two weeks, is hoping for more clearance for weight-bearing. So far, has largely been doing ankle mobility/stretching at home. 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 PT-OP-C Subjective Start: 12/13/24 14:27 Freq: Status: Active Protocol: Document 04/20/25 13:31 KW (Rec: 04/20/25 13:36 KW Laptop) OP-PT Subjective Patient Comments Patient Comments was seen by , new x-rays. TWO broken screws. She will have surgery in June. Is not having any increased pain PT-OP-F Manual Assessment Start: 12/13/24 14:27 Freq: Status: Active Protocol: Document 03/12/25 10:45 DCW (Rec: 03/12/25 10:56 DCW [id number]) Manual Assessments Soft Tissue Assessment Soft Tissue Mobility Assessment Mild edema along inferior aspect of both L malleoli PT-OP-J Posture/Palpation/Skin Start: 12/14/24 14:13 Freq: Status: Active Protocol: Document 12/13/24 13:45 DCW (Rec: 12/14/24 14:28 DCW [id number]) Skin Assessment Circumference Measurement Figure-8 Location Left ankle Measurement (Centimeters) 52.4 Comments Right ankle Figure-8 = 51cm PT-OP-K Range of Motion Start: 12/13/24 14:27 Freq: Status: Active Protocol: Document 03/12/25 10:45 DCW (Rec: 03/12/25 10:56 DCW [id number]) Ankle and Foot Goniometric Range of Motion Ankle and Foot Left Passive Testing Position Sitting Dorsiflexion with Knee Flexed 7 Dorsiflexion with Knee Extended 0 Plantarflexion 60 Inversion 50 Eversion 25 Left Active Testing Position Sitting Dorsiflexion with Knee Flexed 3 Inversion 32 Eversion 25 Comments DF with knee extended measured at -2? PT-OP-M Strength Start: 12/13/24 14:27 Freq: Status: Active Protocol: Document 03/12/25 10:45 DCW (Rec: 03/12/25 10:56 DCW [id number]) Ankle/Foot Strength Ankle and Foot Manual Muscle Testing Right Dorsiflexion (L4) 4+ Good+ Plantarflexion (S1) 4+ Good+ Inversion 4+ Good+ Eversion (S1) 4+ Good+ Left Dorsiflexion (L4) 4+ Good+ Plantarflexion (S1) 4 Good Inversion 4 Good Eversion (S1) 4 Good PT-OP-Q Treatments Start: 12/13/24 14:27 Freq: Status: Active Protocol: Document 04/20/25 13:31 KW (Rec: 04/20/25 13:36 KW Laptop) Therapeutic Exercises Supine Exercises ankle pumps with LE's elevated Supine Exercise Name post manual hooklying Reps/Minutes one min Comments verbal cues to initiate hamstring stretch Side bilateral Equipment Used on Shuttle Recovery, stable platform Reps/Minutes 60 Comments cues for painfree range calf stretch Supine Exercise Name following Side bilateral Resistance 37# Equipment Used Shuttle Recovery, stable platform Reps/Minutes 45 Comments dc'd d/t pain 4/10 on L and leg feeling fatigued. Sitting Exercises seated hip abd with band Sitting Exercise Name HEP Side bilateral Resistance level 4 band Reps/Minutes one min X 1 Comments verbal cues calf stretch Sitting Exercise Name 1. Long sitting 2. seated in chair (added to HEP) Side left Equipment Used c/ towel Reps/Minutes 2x60 Comments positive feedback response Alphabet Sitting Exercise Name 1.CW/CCW 2.writing ABC's - HEP review Side left Comments cues for ankle only, no knee involvement BAPS Sitting Exercise Name BAPS Board Side left Resistance Lv 2->Lv 3 Comments PF/DF, Ev/Inv, CW/CCW Intrinsic foot Sitting Exercise Name [place] pick-up, towel scrunch, short foot Side left Comments max cues for short foot Ankle Flexion Sitting Exercise Name 4-way ankle flexion Side left Resistance Lv 1 Comments verbal review d/t time Manual Therapy Treatment Soft Tissue Mobilization L calf Body Location Uri Gastroc, Soleus, Achilles tenon, Mobilization Type Cross-Friction,Instrument Assisted,Manual Lymphatic Drainage,Rolling,Strumming, Sustained Pressure Intensity/Depth Moderate Body Position Hooklying Comments prone also superficial PT-OP-T Assessment and Plan Start: 12/13/24 14:27 Freq: Status: Active Protocol: Document 04/20/25 13:44 KW (Rec: 04/20/25 13:46 KW Laptop) Physical Therapy Assessment Assessment Summary Assessment despite broken screws, in good spirits, good participation. balance is quite challenged.
--- NOTE | 2025-04-26 11:28 | PT.OTN ---
Current Diagnoses Other chronic pain (04/26/25) Pain in left ankle and joints of left foot (04/26/25) Displaced bimalleolar fracture of left lower leg, subsequent encounter for closed fracture with malunion (04/26/25) Sprain of tibiofibular ligament of left ankle, sequela (04/26/25) Pain due to internal orthopedic prosthetic devices, implants and grafts, initial encounter (04/26/25) Physical Therapy Treatment Note PT-OP-A Visit Information Start: 12/13/24 14:27 Freq: Status: Active Protocol: Document 04/26/25 10:51 KW (Rec: 04/26/25 11:04 KW Laptop) Out-Patient Physical Therapy Visit Information Visit Information Visit Type Treatment Note Visit Start Time 10:45 Visit Stop Time 11:28 Precautions Precautions sz disorder, had last on this past Wednesday. jerking motions . triggered by stress, exhaustion, dehydration PT-OP-B Current Condition Start: 12/13/24 14:27 Freq: Status: Active Protocol: Document 12/13/24 13:45 DCW (Rec: 12/14/24 14:13 DCW [id number]) Current Condition History of Current Condition Onset Date 13 year history Current Complaints Post-surgical left ankle pain/ stiffness History of Current Condition Pt is a 44 year old female presenting two months s/p revision of hardware 13 years after original ankle injury. Pt reports originally fractured tib/fib 13 years ago slipping on ice, and at the time, underwent surgical repair. Ankle has continued to bother her since then, after recent imaging, was told that her hardware was coming loose, and the wrong screws may have been used, and a revision was needed. Pt underwent revision two months ago, and was non-weight bearing until one week ago, now cleared to ambulate in a walking boot. Pt admits walking around [place] on left leg has started to mess up my right knee. Pt in general very hyper mobile, has resulted inn multiple injuries to both ankles, knees , and hips. Pt notes she will likely need a revision of the hardware in her right ankle sometime next year. Has follow -up with surgeon in two weeks, is hoping for more clearance for weight-bearing. So far, has largely been doing ankle mobility/stretching at home. 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 PT-OP-C Subjective Start: 12/13/24 14:27 Freq: Status: Active Protocol: Document 04/26/25 10:51 KW (Rec: 04/26/25 11:04 KW Laptop) OP-PT Subjective Patient Comments Patient Comments surgery is scheduled for Jul 13. Has LBP, R knee pain and L > Rankle pain with change in weather uses dragon balm, non drowsy muscle relaxant prn will be oot with family in April for 8 days PT-OP-F Manual Assessment Start: 12/13/24 14:27 Freq: Status: Active Protocol: Document 03/12/25 10:45 DCW (Rec: 03/12/25 10:56 DCW [id number]) Manual Assessments Soft Tissue Assessment Soft Tissue Mobility Assessment Mild edema along inferior aspect of both L malleoli PT-OP-J Posture/Palpation/Skin Start: 12/14/24 14:13 Freq: Status: Active Protocol: Document 12/13/24 13:45 DCW (Rec: 12/14/24 14:28 DCW [id number]) Skin Assessment Circumference Measurement Figure-8 Location Left ankle Measurement (Centimeters) 52.4 Comments Right ankle Figure-8 = 51cm PT-OP-K Range of Motion Start: 12/13/24 14:27 Freq: Status: Active Protocol: Document 03/12/25 10:45 DCW (Rec: 03/12/25 10:56 DCW [id number]) Ankle and Foot Goniometric Range of Motion Ankle and Foot Left Passive Testing Position Sitting Dorsiflexion with Knee Flexed 7 Dorsiflexion with Knee Extended 0 Plantarflexion 60 Inversion 50 Eversion 25 Left Active Testing Position Sitting Dorsiflexion with Knee Flexed 3 Inversion 32 Eversion 25 Comments DF with knee extended measured at -2? PT-OP-M Strength Start: 12/13/24 14:27 Freq: Status: Active Protocol: Document 03/12/25 10:45 DCW (Rec: 03/12/25 10:56 DCW [id number]) Ankle/Foot Strength Ankle and Foot Manual Muscle Testing Right Dorsiflexion (L4) 4+ Good+ Plantarflexion (S1) 4+ Good+ Inversion 4+ Good+ Eversion (S1) 4+ Good+ Left Dorsiflexion (L4) 4+ Good+ Plantarflexion (S1) 4 Good Inversion 4 Good Eversion (S1) 4 Good PT-OP-Q Treatments Start: 12/13/24 14:27 Freq: Status: Active Protocol: Document 04/26/25 10:51 KW (Rec: 04/26/25 11:04 KW Laptop) Cardio Equipment Recumbent Bicycle Duration (Minutes) 5 Resistance 5 Seat Position closest (cushion behind back) Other 58 RPM, miles 1.78 Therapeutic Exercises Supine Exercises hamstring stretch Side bilateral Equipment Used on Shuttle Recovery, stable platform Reps/Minutes 60 Comments cues for painfree range calf stretch Supine Exercise Name following Side bilateral Resistance 37# Equipment Used Shuttle Recovery, stable platform Reps/Minutes 45 Comments dc'd d/t pain 4/10 on L and leg feeling fatigued. Sitting Exercises seated hip abd with band Sitting Exercise Name HEP Side bilateral Resistance level 4 band Reps/Minutes one min X 1 Comments verbal cues calf stretch Sitting Exercise Name 1. Long sitting 2. seated in chair (added to HEP) Side left Equipment Used c/ towel Reps/Minutes 2x60 Comments positive feedback response Alphabet Sitting Exercise Name 1.CW/CCW 2.writing ABC's - HEP review Side left Comments cues for ankle only, no knee involvement BAPS Sitting Exercise Name BAPS Board Side left Resistance Lv 2->Lv 3 Comments PF/DF, Ev/Inv, CW/CCW Manual Therapy Treatment Soft Tissue Mobilization L calf Body Location Uri Gastroc, Soleus, Achilles tenon, Mobilization Type Cross-Friction,Instrument Assisted,Manual Lymphatic Drainage,Rolling,Strumming, Sustained Pressure Intensity/Depth Moderate Body Position Hooklying Comments prone also superficial Neuro Re-Education Treatment Balance Activities BOSU Lunge Details BOSU Lunge Reps/Duration X 10 each LE Tilt Board Details Lateral weight shift Reps/Duration X12 Lateral Movements Details Lateral ladder drills Equipment 6 hurdles Comments VCs for slight increase in speed SLS Details SLS Surface BOSU Reps/Duration 2 min of practice Self-Care/Home Management Treatment Education Other Education stressed aquatic program. 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 in order to demonstrate improvement in functional ankle mobility and strength s/p surgical revision . LTG Duration 05/12/25 - Improving Assessment Summary Assessment good participation
--- NOTE | 2025-04-30 13:42 | PT.OTN ---
Current Diagnoses Other chronic pain (04/30/25) Pain in left ankle and joints of left foot (04/30/25) Displaced bimalleolar fracture of left lower leg, subsequent encounter for closed fracture with malunion (04/30/25) Sprain of tibiofibular ligament of left ankle, sequela (04/30/25) Pain due to internal orthopedic prosthetic devices, implants and grafts, initial encounter (04/30/25) Physical Therapy Treatment Note PT-OP-A Visit Information Start: 12/13/24 14:27 Freq: Status: Active Protocol: Document 04/30/25 13:02 SP (Rec: 04/30/25 13:51 SP [id number]) Out-Patient Physical Therapy Visit Information Visit Information Visit Type Treatment Note Visit Start Time 13:02 Visit Stop Time 13:42 Visit Number 25 Number of TEST MANAGER Visits 1 Precautions Precautions sz disorder, had last on this past Wednesday. jerking motions . triggered by stress, exhaustion, dehydration PT-OP-B Current Condition Start: 12/13/24 14:27 Freq: Status: Active Protocol: Document 12/13/24 13:45 DCW (Rec: 12/14/24 14:13 DCW [id number]) Current Condition History of Current Condition Onset Date 13 year history Current Complaints Post-surgical left ankle pain/ stiffness History of Current Condition Pt is a 44 year old female presenting two months s/p revision of hardware 13 years after original ankle injury. Pt reports originally fractured tib/fib 13 years ago slipping on ice, and at the time, underwent surgical repair. Ankle has continued to bother her since then, after recent imaging, was told that her hardware was coming loose, and the wrong screws may have been used, and a revision was needed. Pt underwent revision two months ago, and was non-weight bearing until one week ago, now cleared to ambulate in a walking boot. Pt admits walking around [place] on left leg has started to mess up my right knee. Pt in general very hyper mobile, has resulted inn multiple injuries to both ankles, knees , and hips. Pt notes she will likely need a revision of the hardware in her right ankle sometime next year. Has follow -up with surgeon in two weeks, is hoping for more clearance for weight-bearing. So far, has largely been doing ankle mobility/stretching at home. 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 PT-OP-C Subjective Start: 12/13/24 14:27 Freq: Status: Active Protocol: Document 04/30/25 13:02 SP (Rec: 04/30/25 13:51 SP [id number]) OP-PT Subjective Patient Comments Patient Comments Pt reports scheduled for surgery on Jul 13 L due to broken screws need thinks they will just remove screws and plates, TBD. She arrives VALENCIA bandage on L ankle for a while , has been 3 mo since use boot . PT-OP-F Manual Assessment Start: 12/13/24 14:27 Freq: Status: Active Protocol: Document 03/12/25 10:45 DCW (Rec: 03/12/25 10:56 DCW [id number]) Manual Assessments Soft Tissue Assessment Soft Tissue Mobility Assessment Mild edema along inferior aspect of both L malleoli PT-OP-J Posture/Palpation/Skin Start: 12/14/24 14:13 Freq: Status: Active Protocol: Document 12/13/24 13:45 DCW (Rec: 12/14/24 14:28 DCW [id number]) Skin Assessment Circumference Measurement Figure-8 Location Left ankle Measurement (Centimeters) 52.4 Comments Right ankle Figure-8 = 51cm PT-OP-K Range of Motion Start: 12/13/24 14:27 Freq: Status: Active Protocol: Document 03/12/25 10:45 DCW (Rec: 03/12/25 10:56 DCW [id number]) Ankle and Foot Goniometric Range of Motion Ankle and Foot Left Passive Testing Position Sitting Dorsiflexion with Knee Flexed 7 Dorsiflexion with Knee Extended 0 Plantarflexion 60 Inversion 50 Eversion 25 Left Active Testing Position Sitting Dorsiflexion with Knee Flexed 3 Inversion 32 Eversion 25 Comments DF with knee extended measured at -2? PT-OP-M Strength Start: 12/13/24 14:27 Freq: Status: Active Protocol: Document 03/12/25 10:45 DCW (Rec: 03/12/25 10:56 DCW [id number]) Ankle/Foot Strength Ankle and Foot Manual Muscle Testing Right Dorsiflexion (L4) 4+ Good+ Plantarflexion (S1) 4+ Good+ Inversion 4+ Good+ Eversion (S1) 4+ Good+ Left Dorsiflexion (L4) 4+ Good+ Plantarflexion (S1) 4 Good Inversion 4 Good Eversion (S1) 4 Good PT-OP-Q Treatments Start: 12/13/24 14:27 Freq: Status: Active Protocol: Document 04/30/25 13:02 SP (Rec: 04/30/25 13:51 SP [id number]) Cardio Equipment Recumbent Stepper (Sci-Fit) Duration (Minutes) 4 Resistance 5 Seat Position 6 Other LEs only Recumbent Bicycle Duration (Minutes) 2 Resistance 5 Seat Position closest (cushion behind back) Other 58 RPM Therapeutic Exercises Sitting Exercises 4 Way Ankle Sitting Exercise Name PF, DF, EV, IV Side right Resistance 1>Lv 5 dark green Equipment Used (discussed post op will be AROM then progress light blue when allowed) Reps/Minutes 10 reps each direction Comments good effort strengthening range, no pain Standing Exercises Heel raises Standing Exercise Name added to HEP with HO Side bilateral Resistance edge step AROM Equipment Used light finger R hand rail Reps/Minutes 10 reps x2 Comments cued emphasis L but help R con /eccentric control SANGEETA PF/DF Rocking Standing Exercise Name trialed in PT Side bilateral Resistance AROM Equipment Used PRN rail support Reps/Minutes 10 reps Comments good feedback muscle effort calf and eccentric return SL slider Standing Exercise Name 12, 3, 6 oclock RLE Side left Resistance RLE slider (trialed TB but to hard) Equipment Used light rail support Reps/Minutes 10x each way Comments VC's for small ROM, hip hinge. 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 LTG Duration 05/12/25 GOAL MET One Impairment Pt does not have an appropriate home exercise program Short Term Goal (STG) Pt to be independent and compliant with an appropriate HEP STG Duration Met Three Impairment Decreased left ankle AROM, especially DF with knee extended (-4?) Usp Goal (LTG) Pt to demonstrate active ankle DF with knee extended to at least 5? in order to demonstrate improvement in functional ankle mobility and strength s/p surgical revision . LTG Duration 05/12/25 - Improving Assessment Summary Assessment Pt tolerated progressed ankle and calf strengthening, no pain. Would benefit from progression with SL balance per previous PT Plan. Only has 2 more approved visits with PT being next, then TEST MANAGER for 2- 3 tx Physical Therapy Plan Frequency and Duration Frequency of Treatment 2x/Week Plan of Care Start Date 03/12/25 Plan of Care End Date 05/12/25 Therapeutic Interventions Therapeutic Interventions Balance Training,Gait Training ,Home Exercise Program,Joint Mobilizations,Manual Therapy, Neuromuscular Re-education, Patient/Caregiver Education, Self-Care/Home Management,Soft Tissue Mobilization, Therapeutic Activities, Therapeutic Exercises Modalities Cold Pack/Ice Massage,Hot Packs Next Visit Focus/Plan Next Note Type Treatment Note Next Visit Plan Updated POC next tx. Only has 2/8 more approved visits Review single leg activities. Progress balance prn. POC: Ankle stretching and strengthening
--- NOTE | 2025-05-10 11:53 | PT.OTN ---
Current Diagnoses Other chronic pain (05/10/25) Pain in left ankle and joints of left foot (05/10/25) Displaced bimalleolar fracture of left lower leg, subsequent encounter for closed fracture with malunion (05/10/25) Sprain of tibiofibular ligament of left ankle, sequela (05/10/25) Pain due to internal orthopedic prosthetic devices, implants and grafts, initial encounter (05/10/25) Physical Therapy Treatment Note PT-OP-A Visit Information Start: 12/13/24 14:27 Freq: Status: Active Protocol: Document 05/10/25 11:43 KW (Rec: 05/10/25 11:53 KW Laptop) Out-Patient Physical Therapy Visit Information Visit Information Visit Type Discharge Summary Visit Start Time 11:30 Visit Stop Time 12:15 Visit Number 26 Precautions Precautions broken hardware in ankle PT-OP-B Current Condition Start: 12/13/24 14:27 Freq: Status: Active Protocol: Document 12/13/24 13:45 DCW (Rec: 12/14/24 14:13 DCW [id number]) Current Condition History of Current Condition Onset Date 13 year history Current Complaints Post-surgical left ankle pain/stiffness History of Current Pt is a 44 year old female presenting two months s/p Condition revision of hardware 13 years after original ankle injury. Pt reports originally fractured tib/fib 13 years ago slipping on ice, and at the time, underwent surgical repair. Ankle has continued to bother her since then, after recent imaging, was told that her hardware was coming loose, and the wrong screws may have been used, and a revision was needed. Pt underwent revision two months ago, and was non-weight bearing until one week ago, now cleared to ambulate in a walking boot. Pt admits walking around [place] on left leg has started to mess up my right knee. Pt in general very hyper mobile, has resulted inn multiple injuries to both ankles, knees, and hips. Pt notes she will likely need a revision of the hardware in her right ankle sometime next year. Has follow-up with surgeon in two weeks, is hoping for more clearance for weight-bearing. So far, has largely been doing ankle mobility/stretching at home. 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 PT-OP-C Subjective Start: 12/13/24 14:27 Freq: Status: Active Protocol: Document 05/10/25 11:43 KW (Rec: 05/10/25 11:53 KW Laptop) OP-PT Subjective Patient Comments Patient Comments feels ok to stop PT until after surgery, HWR. WIll be traveling, getting hyerlonic acid injections into knee in May OP-PT Pain Assessment Pain Assessment Grid Paper Pain Yes Assessment Grid Completed Location Left Ankle Intensity 4 Scale Used Numeric (0 - 10) Description Aching,Tender,Throbbing Frequency Frequent PT-OP-F Manual Assessment Start: 12/13/24 14:27 Freq: Status: Active Protocol: Document 03/12/25 10:45 DCW (Rec: 03/12/25 10:56 DCW [id number]) Manual Assessments Soft Tissue Assessment Soft Tissue Mobility Mild edema along inferior aspect of both L malleoli Assessment PT-OP-J Posture/Palpation/Skin Start: 12/14/24 14:13 Freq: Status: Active Protocol: Document 12/13/24 13:45 DCW (Rec: 12/14/24 14:28 DCW [id number]) Skin Assessment Circumference Measurement Figure-8 Location Left ankle Measurement ( 52.4 Centimeters) Comments Right ankle Figure-8 = 51cm PT-OP-K Range of Motion Start: 12/13/24 14:27 Freq: Status: Active Protocol: Document 05/10/25 11:43 KW (Rec: 05/10/25 11:53 KW Laptop) Ankle and Foot Goniometric Range of Motion Ankle and Foot Right Active Testing Position Sitting Dorsiflexion with 12 Knee Flexed Dorsiflexion with 0 Knee Extended Plantarflexion 50 Inversion 50 Eversion 25 Left Passive Testing Position Sitting Dorsiflexion with 7 Knee Flexed Dorsiflexion with 0 Knee Extended Plantarflexion 60 Inversion 50 Eversion 25 Left Active Testing Position Sitting Dorsiflexion with 3 Knee Flexed Inversion 32 Eversion 25 Comments DF with knee extended measured at -2? PT-OP-M Strength Start: 12/13/24 14:27 Freq: Status: Active Protocol: Document 05/10/25 11:43 KW (Rec: 05/10/25 11:53 KW Laptop) Ankle/Foot Strength Ankle and Foot Manual Muscle Testing Right Dorsiflexion (L4) 4+ Good+ Plantarflexion (S1) 4+ Good+ Inversion 4+ Good+ Eversion (S1) 4+ Good+ Left Dorsiflexion (L4) 4+ Good+ Plantarflexion (S1) 4 Good Inversion 4+ Good+ Eversion (S1) 4+ Good+ PT-OP-Q Treatments Start: 12/13/24 14:27 Freq: Status: Active Protocol: Document 05/10/25 11:43 KW (Rec: 05/10/25 11:53 KW Laptop) Cardio Equipment Recumbent Elliptical (Seniorlink) Duration (Minutes) 10 Resistance 1 Other Cues for steady pace, warmup Therapeutic Exercises Supine Exercises hamstring stretch Side bilateral Equipment Used on Shuttle Recovery, stable platform Reps/Minutes 60 Comments cues for painfree range calf stretch Supine Exercise Name following Side bilateral Resistance 37# Equipment Used Shuttle Recovery, stable platform Reps/Minutes 45 Comments dc'd d/t pain 4/10 on L and leg feeling fatigued. Sitting Exercises 4 Way Ankle Sitting Exercise PF, DF, EV, IV Name Side right Resistance 1>Lv 5 dark green Equipment Used (discussed post op will be AROM then progress light blue when allowed) Reps/Minutes 10 reps each direction Comments good effort strengthening range, no pain seated hip abd with band Sitting Exercise HEP Name Side bilateral Resistance level 4 band Reps/Minutes one min X 1 Comments verbal cues calf stretch Sitting Exercise 1. Long sitting 2. seated in chair (added to HEP) Name Side left Equipment Used c/ towel Reps/Minutes 2x60 Comments positive feedback response Alphabet Sitting Exercise 1.CW/CCW 2.writing ABC's - HEP review Name Side left Comments cues for ankle only, no knee involvement BAPS Sitting Exercise BAPS Board Name Side left Resistance Lv 2->Lv 3 Comments PF/DF, Ev/Inv, CW/CCW Intrinsic foot Sitting Exercise [place] pick-up, towel scrunch, short foot Name Side left Comments max cues for short foot Ankle Flexion Sitting Exercise 4-way ankle flexion Name Side left Resistance Lv 1 Comments verbal review d/t time Standing Exercises Heel raises Side bilateral Resistance edge step AROM Equipment Used light finger R hand rail Reps/Minutes 10 reps x2 Comments cued emphasis L but help R con/eccentric control Manual Therapy Treatment Soft Tissue Mobilization L calf Body Location Uri Gastroc, Soleus, Achilles tenon, Mobilization Type Cross-Friction,Instrument Assisted,Manual Lymphatic Drainage,Rolling,Strumming,Sustained Pressure Intensity/Depth Moderate Body Position Hooklying Comments prone also superficial Neuro Re-Education Treatment Balance Activities BOSU Lunge Details BOSU Lunge Reps/Duration X 10 each LE Tilt Board Details Lateral weight shift Reps/Duration X12 Lateral Movements Details Lateral ladder drills Equipment 6 hurdles Comments VCs for slight increase in speed SLS Details SLS Surface BOSU Reps/Duration 2 min of practice Self-Care/Home Management Treatment Education Other Education stressed aquatic program. taping for patella alignment, pain relief PT-OP-T Assessment and Plan Start: 12/13/24 14:27 Freq: Status: Active Protocol: Document 05/10/25 11:43 KW (Rec: 05/10/25 11:53 KW Laptop) Physical Therapy Assessment Rehab Potential Rehabilitation Good Potential Evaluation Complexity Number of Personal 3 or More Factors/ Comorbidities Number of Body 4 or More Systems Impaired Clinical Unstable Presentation at Evaluation Impairments Impairments Activity Tolerance,Balance,Functional Activities, Functional Mobility,Gait,Pain,ROM,Soft Tissue Mobility, Strength Other Impairments broken hardware Goals Three Impairment Decreased left ankle AROM, especially DF with knee extended (-4?) Long-Term Goal (LTG) Pt to demonstrate active ankle DF with knee extended to at least 5? in order to demonstrate improvement in functional ankle mobility and strength s/p surgical revision. LTG Duration 05/12/25 - Improving, hardware broke, goal DC Assessment Summary Assessment patient agrees with DC until HWR, focus on HEP
== END 2025-05-21 10:16 | disposition home or self-care (01) ==
LOC: PHYS 11:30
PROVIDERS: Family Provider Family Medicine; PCP Family Medicine; Referring Provider Podiatrist Foot & Ankle Surgery; Visit Provider Podiatrist Foot & Ankle Surgery
DX: M25.572 Pain in left ankle and joints of left foot (principal); G89.29 Other chronic pain; S93.432S Sprain of tibiofibular ligament of left ankle, sequela; S82.842P Displaced bimalleolar fracture of left lower leg, subsequent encounter for closed fracture with malunion; T84.84XA Pain due to internal orthopedic prosthetic devices, implants and grafts, initial encounter
CPT/HCPCS: 97110; 97112; 97140; 97162